=== PATIENT | female | born 2005 | race Caucasian/White ===

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

== ENCOUNTER 2024-01-05 20:02 | Emergency (ER) | payer MEDICAID, SELFPAY ==
--- NOTE | 2024-01-05 | ECG_ITS ---
Test Reason : tachycardia Blood Pressure : / mmHG Vent. Rate : 113 BPM Atrial Rate : 113 BPM P-R Int : 134 ms QRS Dur : 092 ms QT Int : 320 ms P-R-T Axes : 059 065 010 degrees QTc Int : 438 ms Sinus tachycardia Otherwise normal ECG When compared to the previous EKG of 25 jan 2023, lateral NSTT improved. Referred By: Generic ED Physician Electronically Signed By:STUART GARNETT
[2024-01-05 20:11] VITALS: BP 111/76; PULSE 130; O2SAT 97
[2024-01-05 20:13] VITALS: BP 135/93; PULSE 123; RESP 20; TEMP 37.3; O2SAT 96; BMI 35.1
[2024-01-05 20:50] LABS: IDNOW Serial# 58CA691E; Strep A Nucleic Acid Negative (Negative)
--- NOTE | 2024-01-05 21:05 | ED_ITS ---
HPI - URI/Sore Throat General Chief Complaint: Upper Respiratory Symptoms Stated Complaint: body aches, sore throat Time Seen by Provider: 01/05/24 21:02 Source: patient and old records reviewed Mode of arrival: EMS Limitations: no limitations History of Present Illness ED Provider: GIO BONILLA Narrative: 18 yo female with PMH of strep throat and asthma presents with c/o sore throat. She had leftover antibiotics not sure of the name so she took 2 doses. When she called 911 today for a ride to the hospital the dispatch told her to take INH as she told them she had some wheezing. She has no n/v but her throat is painful. MD elicited complaint: sore throat Pertinent past history: asthma Onset (ago): day(s) (1) Consistency: constant Severity: moderate Able to tolerate fluids by mouth: Yes Exacerbating factors: swallowing Relieving factors: nothing Context: other (strep 1 month ago) Associated symptoms: fever, chills and sore throat Treatments prior to arrival: other (told to use albuterol INH prior to arrival by dispatch) Related Data Previous Rx's ?Medication ?Instructions ?Recorded albuterol sulfate 90 mcg/actuation 2 inh inhalation Q4-6H PRN 09/14/21 breath activated powder inhaler shortness of breath or wheezing #1 ea albuterol sulfate 90 mcg/actuation 2 inh inhalation Q4-6H PRN 02/04/22 breath activated powder inhaler shortness of breath or wheezing #1 ea prednisone 20 mg tablet 20 mg PO DAILY 4 days #4 tabs 02/04/22 albuterol sulfate 90 mcg/actuation 2 inh inhalation Q4-6H PRN 08/10/22 breath activated powder inhaler shortness of breath or wheezing #1 ea prednisone 20 mg tablet 40 mg (2 x 20 mg) PO DAILY 5 days 08/10/22 #10 tabs albuterol sulfate 90 mcg/actuation 2 puff inhalation Q4-6H PRN 01/25/23 aerosol inhaler (ProAir HFA) shortness of breath or wheezing #8.5 grams prednisone 50 mg tablet 50 mg PO DAILY #4 tabs 01/25/23 cephalexin 500 mg capsule 500 mg PO BID 10 days #19 caps 01/05/24 Allergies Allergy/AdvReac Type Severity Reaction Status Date / Time Seasonal Allergies Allergy Mild Nasal Verified 01/05/24 20:19 congestion Review of Systems Review of Systems: Constitutional : positive Fever, positive Chills, positive fatigue, positive Malaise ENT/Mouth : positive sore throat, no runny nose Eyes: No Discharge Cardiovascular : No Chest Pain, No SOB Respiratory : No Cough, No Sputum Gastrointestinal : No Nausea, No Vomiting, No Diarrhea Genitourinary : No Dysuria, No Urinary Frequency Musculoskeletal : positive Myalgia Skin : No rash Neuro : No Headache all other systems reviewed and are negative [facility] Past Medical History Attestation statement: The following information was validated with the patient. Source: old records reviewed Medical History Asthma Social History Social History Alcohol intake: never Patient Tobacco Use Status: Never used Tobacco Advance Directives: No Advance Directives Information Provided: No Do you have a plan to hurt others: No Plan Physical Exam Vital Signs: Vital Signs: Last Vital Signs Temp 99.1 F 01/05/24 20:13 Pulse 123 H 01/05/24 20:13 Resp 20 01/05/24 20:13 BP 135/93 H 01/05/24 20:13 Pulse Ox 96 01/05/24 20:13 O2 Del Method Room Air 01/05/24 20:13 BMI result Body Mass Index 35.1 Appearance: Alert. Oriented X3. No acute distress. Eyes: Pupils equal, round and reactive to light. ENT: Pharynx moderate swelling both tonsils with some white patches noted on both tonsils uvula is midline normal voice not muffled no stridor or drooling Neck: Normal inspection. Neck supple. CVS: Normal heart rate and rhythm. Pulses normal. Respiratory: No respiratory distress. Breath sounds normal. Abdomen: Soft and non-tender. Skin: Skin warm and dry. Normal skin color. Extremities: No lower extremity edema. Neuro: Oriented X 3. No motor deficit. No sensory deficit. Medical Decision Making Medical Decision Making MDM Narrative: 18 yo female with PMH of strep throat and asthma presents with c/o sore throat and fevers. 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 Did take antibiotics x 2 doses unsure if this is causing any false negative with her testing. Will treat for presumed tonsillitis with cephalexin and give dose of dexamethasone. She has no signs of deeper space infection Differential Diagnosis Differential Diagnoses: The differential diagnosis associated with the presentation includes tonsillitis, viral syndrome, GAS pharyngitis Admission/Observation Consideration of admission/observation: Escalation of care including admission/observation considered not toxic, mild tachycardia likely related to INH use Lab Data MDM Lab Attestation statement: I reviewed the patient's lab results. Labs: Lab Results 01/05/24 Range/Units 20:37 Influenza Type A (PCR) NEGATIVE (Negative) Influenza Type B (PCR) NEGATIVE (Negative) RSV RNA Qual (PCR) NEGATIVE (Negative) SARS-CoV-2 RNA (RT-PCR) NEGATIVE (Negative) S. pyogenes GrpA ARLETTE Negative (Negative) Independent Interpretation I performed an independent interpretation of an: EKG Interpretation: Rate: 113 Rhythm: sinus tachycardia Hubbard: normal Normal P waves. Normal MAUREEN. Normal QRS complex. ST T wave : normal no EMA qTC: 438 prior studies: no acute ischemia The study has been interpreted contemporaneously by me. . External Record Review External record reviewed: Inpatient record Prescription Management I considered prescription management with: Antibiotic and Other Discharge Plan Discharge Clinical Impression: Acute tonsillitis Qualifiers: Pharyngitis/tonsillitis etiology: unspecified etiology Qualified Code(s): J03.90 - Acute tonsillitis, unspecified Patient Disposition: Home, Self-Care Instructions: Tonsillitis (ED) Additional Instructions: return for worsening symptoms, pain fevers unable to swallow or any other concerns rotate tylenol and motrin for fevers or pain given dose of steroids in the ED negative for flu covid rsv On a cephalosporin?antibiotic, softer bowel movements are to be expected. Call your provider if you move your bowels more than 4 times a day, your bowel movements are almost all liquid, or you get a rash.?? Prescriptions: New cephalexin 500 mg capsule 500 mg PO BID 10 Days Qty: 19 0RF No Action albuterol sulfate 90 mcg/actuation aerosol powdr breath activated 2 inh inhalation Q4-6H PRN (Reason: shortness of breath or wheezing) Qty: 1 0RF albuterol sulfate 90 mcg/actuation aerosol powdr breath activated 2 inh inhalation Q4-6H PRN (Reason: shortness of breath or wheezing) Qty: 1 0RF prednisone 20 mg tablet 20 mg PO DAILY 4 Days Qty: 4 0RF albuterol sulfate 90 mcg/actuation aerosol powdr breath activated 2 inh inhalation Q4-6H PRN (Reason: shortness of breath or wheezing) Qty: 1 0RF prednisone 20 mg tablet 40 mg PO DAILY 5 Days Qty: 10 0RF albuterol sulfate [ProAir HFA] 90 mcg/actuation HFA aerosol inhaler 2 puff inhalation Q4-6H PRN (Reason: shortness of breath or wheezing) Qty: 8.5 1RF prednisone 50 mg tablet 50 mg PO DAILY Qty: 4 0RF Stand Alone Forms: Work/School Release Print Language: Ukrainian
[2024-01-05 21:20] LABS: Influenza A PCR NEGATIVE (Negative); Influenza B PCR NEGATIVE (Negative); Resp Syncy Virus RNA Qual PCR NEGATIVE (Negative); SARS COV2 PCR INHOUSE NEGATIVE (Negative)
[2024-01-05] MEDS: dexAMETHasone 2 MG TABLET 10 MG PO (21:34)
[2024-01-05] MEDS: Acetaminophen 325 MG TABLET 975 MG PO (21:34)
[2024-01-05 22:02] VITALS: BP 135/93; PULSE 123; RESP 20; TEMP 37.3; O2SAT 96
[2024-01-05] MEDS: cephALEXin 500 MG CAPSULE PO (22:02)
== END 2024-01-05 22:02 | disposition home or self-care (01) ==
PROVIDERS: Emergency Provider Emergency Medicine
DX: J03.90 Acute tonsillitis, unspecified (principal); M79.10 Myalgia, unspecified site; R50.9 Fever, unspecified; R00.0 Tachycardia, unspecified; Z03.818 Encounter for observation for suspected exposure to other biological agents ruled out
CPT/HCPCS: 0241U; 87651; 93005; 99283; J8540

== ENCOUNTER → 2024-01-05 20:51 | Outpatient (BNV) | payer MEDICAID, SELFPAY | PROVIDERS: Emergency Provider Emergency Medicine; Visit Provider Internal Medicine | DX: R00.0 Tachycardia, unspecified (principal) | CPT/HCPCS: 93010 ==

== ENCOUNTER 2024-01-30 06:47 | Emergency (ER) | payer MEDICAID, SELFPAY ==
[2024-01-30 06:56] VITALS: BP 126/87; PULSE 100; O2SAT 97
[2024-01-30 07:02] VITALS: BP 152/90; PULSE 108; RESP 20; TEMP 36.6; O2SAT 95; BMI 35.8
--- NOTE | 2024-01-30 07:36 | ED.ASTHMA ---
HPI - Asthma General Chief Complaint: Dyspnea Stated Complaint: sob Time Seen by Provider: 01/30/24 07:00 Source: patient Mode of arrival: ambulatory Limitations: no limitations History of Present Illness ED Provider: GIO BONILLA Narrative: 19 yo female with PMH of asthma woke up with wheezing and tried to use nebulizer at home - no relief. EMS gave duoneb and patient feels much better. She denies recent fevers, travels, sick contacts, Has not been on prednisone in 1 month. Has not been intubated. Does not use steroid inhaler at home MD complaint: asthma attack , shortness of breath and wheezing Onset (ago): hour(s) (4am) Severity: moderate Context: none known Associated symptoms: none Asthma History: childhood onset Treatments Prior to Arrival: inhaled bronchodilator Related Data Previous Rx's ?Medication ?Instructions ?Recorded albuterol sulfate 90 mcg/actuation 2 inh inhalation Q4-6H PRN 09/14/21 breath activated powder inhaler shortness of breath or wheezing #1 ea albuterol sulfate 90 mcg/actuation 2 inh inhalation Q4-6H PRN 02/04/22 breath activated powder inhaler shortness of breath or wheezing #1 ea prednisone 20 mg tablet 20 mg PO DAILY 4 days #4 tabs 02/04/22 albuterol sulfate 90 mcg/actuation 2 inh inhalation Q4-6H PRN 08/10/22 breath activated powder inhaler shortness of breath or wheezing #1 ea prednisone 20 mg tablet 40 mg (2 x 20 mg) PO DAILY 5 days 08/10/22 #10 tabs albuterol sulfate 90 mcg/actuation 2 puff inhalation Q4-6H PRN 01/25/23 aerosol inhaler (ProAir HFA) shortness of breath or wheezing #8.5 grams prednisone 50 mg tablet 50 mg PO DAILY #4 tabs 01/25/23 cephalexin 500 mg capsule 500 mg PO BID 10 days #19 caps 01/05/24 albuterol sulfate 90 mcg/actuation 2 puff inhalation QID PRN 01/30/24 aerosol inhaler shortness of breath or wheezing #6.7 grams budesonide-formoterol HFA 80 1 inh inhalation BID #10.2 grams 01/30/24 mcg-4.5 mcg/actuation aerosol inhaler prednisone 20 mg tablet 40 mg (2 x 20 mg) PO DAILY 4 days 01/30/24 #8 tabs Allergies Allergy/AdvReac Type Severity Reaction Status Date / Time Seasonal Allergies Allergy Mild Nasal Verified 01/30/24 07:04 congestion Review of Systems Review of Systems: Constitutional : No Fever, No Chills ENT/Mouth : No Hoarseness, No sore throat, No Rhinorrhea Eyes: No Redness, No Discharge, No Vision Changes Cardiovascular : No Chest Pain, positive SOB, positive Dyspnea on Exertion, No Edema Respiratory : positive Cough, No Sputum, positive Wheezing, Gastrointestinal : No Nausea, No Vomiting, No Diarrhea, No abdominal Pain Genitourinary : No Dysuria, No Hematuria Musculoskeletal : No joint pain, No Myalgias Skin : No rash Neuro : No Weakness, No Numbness, No Headache Psych : No anxiety, depression All other systems reviewed and are negative [facility] Past Medical History Attestation statement: The following information was validated with the patient. Source: old records reviewed Medical History Asthma Social History Social History Alcohol intake: never Patient Tobacco Use Status: Never used Tobacco Advance Directives: No Physical Exam Vital Signs: Vital Signs: Last Vital Signs Temp 98 F 01/30/24 07:02 Pulse 108 H 01/30/24 07:02 Resp 20 01/30/24 07:02 BP 152/90 H 01/30/24 07:02 Pulse Ox 95 01/30/24 07:02 O2 Del Method Room Air 01/30/24 07:02 BMI result Body Mass Index 35.8 Appearance: Alert. Oriented X3. No acute distress. Eyes: Pupils equal, round and reactive to light. ENT: Pharynx normal. Neck: Normal inspection. Neck supple. CVS: Normal heart rate and rhythm. Pulses normal. Respiratory: No respiratory distress. Breath sounds faint wheeze left lower lobe otherwise clear Abdomen: Soft and non-tender. Skin: Skin warm and dry. Normal skin color. Extremities: No lower extremity edema. Neuro: Oriented X 3. No motor deficit. No sensory deficit. Medical Decision Making Medical Decision Making MDM Narrative: 19 yo female with hx of asthma no intubations here with wheezing on arrival that is drastically improved no hypoxia the patient is on rescue INH only using several times a week. She just had prednisone about a month ago. She needs steroid INH therapy to prevent recurrence and better manage her asthma. Will start on albuterol, steroid inhaler, short course prednisone. No concern for prednisone. Differential Diagnosis Differential Diagnoses: The differential diagnosis associated with the presentation includes asthma exacerbation Admission/Observation Consideration of admission/observation: Escalation of care including admission/observation considered really improved with EMS therapy not toxic needs steroid INH at home given recent recurrence in last month Independent Historian Clinical information obtained from an independent historian. History obtained from or confirmed by: EMS External Record Review External record reviewed: Inpatient record Prescription Management I considered prescription management with: Other (steroid INH albuterol, prednisone) Discharge Plan Discharge Clinical Impression: Asthma with exacerbation Qualifiers: Asthma severity: moderate Asthma persistence: persistent Qualified Code(s): J45.41 - Moderate persistent asthma with (acute) exacerbation Patient Disposition: Home, Self-Care Instructions: Asthma (ED) Additional Instructions: continue to use your inhaler today return for worsening symptoms or difficulty breathing next dose of prednisone is tomorrow Prescriptions: New prednisone 20 mg tablet 40 mg PO DAILY 4 Days Qty: 8 0RF albuterol sulfate 90 mcg/actuation HFA aerosol inhaler 2 puff inhalation QID PRN (Reason: shortness of breath or wheezing) Qty: 6.7 0RF budesonide-formoterol 80-4.5 mcg/actuation HFA aerosol inhaler 1 inh inhalation BID Qty: 10.2 0RF Rx Instructions: rinse mouth after immediately after use No Action albuterol sulfate 90 mcg/actuation aerosol powdr breath activated 2 inh inhalation Q4-6H PRN (Reason: shortness of breath or wheezing) Qty: 1 0RF albuterol sulfate 90 mcg/actuation aerosol powdr breath activated 2 inh inhalation Q4-6H PRN (Reason: shortness of breath or wheezing) Qty: 1 0RF prednisone 20 mg tablet 20 mg PO DAILY 4 Days Qty: 4 0RF albuterol sulfate 90 mcg/actuation aerosol powdr breath activated 2 inh inhalation Q4-6H PRN (Reason: shortness of breath or wheezing) Qty: 1 0RF prednisone 20 mg tablet 40 mg PO DAILY 5 Days Qty: 10 0RF albuterol sulfate [ProAir HFA] 90 mcg/actuation HFA aerosol inhaler 2 puff inhalation Q4-6H PRN (Reason: shortness of breath or wheezing) Qty: 8.5 1RF prednisone 50 mg tablet 50 mg PO DAILY Qty: 4 0RF cephalexin 500 mg capsule 500 mg PO BID 10 Days Qty: 19 0RF Stand Alone Forms: Work/School Release Print Language: Portuguese
[2024-01-30 07:46] VITALS: PULSE 96; RESP 16; O2SAT 98
[2024-01-30] MEDS: Albuterol Sulfate 2.5 MG, Albuterol/Iprat 2.5/0.5MG 3 ML 3 ML INHALE (07:46)
[2024-01-30 08:00] VITALS: BP 161/93; PULSE 110; RESP 16; TEMP 36.7; O2SAT 97
[2024-01-30] MEDS: predniSONE 20 MG TABLET 60 MG PO (08:02)
== END 2024-01-30 08:11 | disposition home or self-care (01) ==
PROVIDERS: Emergency Provider Emergency Medicine; PCP Registered Nurse
DX: J45.41 Moderate persistent asthma with (acute) exacerbation (principal); R06.02 Shortness of breath
CPT/HCPCS: 94640; 99284

== ENCOUNTER 2024-02-14 15:18 | Outpatient (REF) | payer MEDICAID, SELFPAY ==
[2024-02-14 17:10] LABS: Thyroid Stimulating Hormone 1.11 uIU/mL (0.32-4.0)
[2024-02-16 10:23] LABS: Follicle Stimulating Hormone 8.7 mIU/mL; Lutenizing Hormone 22.9 mIU/mL; Prolactin 20.5 ng/mL; Sex Hormone Binding Globulin 9 nmol/L (17-124)
[2024-02-16 10:27] LABS: DHEA Sulfate 161 mcg/dL (44-286)
[2024-02-20 21:09] LABS: Testosterone, Total 32 ng/dL (2-45)
[2024-02-20 23:59] LABS: Estradiol Ultra Sensitive 96 pg/mL
[2024-02-22 15:58] LABS: Aldosterone/Renin Ratio 4.9 Ratio (0.9-28.9); Plasma Renin Activity 2.46 ng/mL/h (0.25-5.82)
== END 2024-02-14 15:19 | disposition home or self-care (01) ==
LOC: HO.HHCL 15:18
PROVIDERS: Visit Provider Registered Nurse
DX: N92.6 Irregular menstruation, unspecified (principal); R03.0 Elevated blood-pressure reading, without diagnosis of hypertension
CPT/HCPCS: 36415; 82088; 82627; 82670; 83001; 83002; 83498; 84146; 84270; 84402; 84403; 84439; 84443

== ENCOUNTER 2024-02-25 14:05 | Outpatient (REF) | payer MEDICAID, SELFPAY | END 2024-02-25 14:06 | disposition home or self-care (01) | LOC: HO.HHCL 14:05 | PROVIDERS: Visit Provider Registered Nurse | DX: N92.6 Irregular menstruation, unspecified (principal) | CPT/HCPCS: 36415; 83498 ==

== ENCOUNTER 2024-10-07 12:00 | Outpatient (REF) | payer MEDICAID, SELFPAY ==
[2024-10-07 14:12] LABS: Creatinine Urine 270.85 mg/dL; Microalbum/Creatinine Ratio Ur 24.7 ug/mg cr (<30)
--- OUTSIDE RECORDS SUMMARY | 2024-10-07 14:27 | XMS_ITS | Encounter Summary ---
Author Organization [employer] Address [address] [facility] [address] [place] [address] Care Team Providers Care Relay Mechanic Name Role Phone Kayley Looney DO Primary Care Provider [phone] [facility] Primary Care Provider Reason for Visit * Reason Comments Med Refill Encounter Details Date Type Department Care Team (Late st Contact Info) Description 07/08/2023 Refill [facility] MED[facility]INE [address] [place], [place] [phone] Kayley Looney DO [address] [place], [place] [phone] Cough in adult; Moderate asthma with acute exacerbation, unspecified whether persistent Social History Tobacco Use Types Packs/Day Years Used Date Smoking Tobacco: Never Passive Smoke Exposure: Never Smokeless Tobacco: Never Alcohol Use Standard Drinks/Week Comments Never 0 (1 standard drink = 0.6 oz pur e alcohol) Comments Unknown Sex and Gender Information Value Date Recorded Sex Assigned at Female 04/16/2022 10:18 AM EDT Legal Sex Female 10:18 AM EDT Gender Identity Female 04/16/2022 10:18 AM EDT Sexual Orientation Straight 04/16/2022 10 :18 AM EDT documented as of this encounter Plan of Treatment Upcoming Encounters Date Type Department Care Team (Late st Contact Info) Description 12/07/2024 2:30 PM EDT Telemedicine [facility] MEDICINE [address] [place], [place] [phone] [facility] [address] [place] [address] documented as of this encounter Visit Diagnoses Diagnosis Cough in adult Moderate asthma with acute exacerbation, unspecified whether persistent documented in this encounter Care Teams Relay Mechanic Relationship Specialty Start Date End Date Kayley Looney DO [address] [place] [address] PCP - General Pediatrics 02/11/13 09/03/23 MaryvilleValerie FNP [address] [place] [address] PCP - General Family Medicine 09/04/23 Barbie Slade Sex Worker Or EscortDivider Operator 12/18/23 documented as of this encounter
--- OUTSIDE RECORDS SUMMARY | 2024-10-07 14:27 | XMS_ITS | Encounter Summary ---
Author Organization [employer] Address [address] [facility] [address] [place] [address] Care Team Providers Care Manager Of Supply Chain Name Role Phone Kayley Looney DO Primary Care Provider [phone] [facility] Primary Care Provider [phone] Reason for Visit * Reason Onset Date Comments Med Refill 04/26/2023 Encounter Details Date Type Department Care Team ([facility] st Contact Info) Description 04/26/2023 Refill [facility] MEDICINE [address] [place] [address] Kayley Looney DO [address] [place], [place] [phone] Cough in adult; Moderate asthma with acute [...] AM EDT documented as of this encounter Miscellaneous Notes * Telephone Encounter - Millicent Morales - 04/26/2023 10:21 AM EST Tc from pt requesting medication refill on albuterol 108 (90 Base) MCG/ACT inhaler to be sent to [facility] pharmacy documented in this encounter Plan of Treatment Upcoming Encounters Date Type Department Care Team (Late st Contact Info) Description 12/07/2024 2:30 PM EDT Telemedicine [facility] MEDICINE [address] [place] [address] Valerie Danielson FNP [address] [place] [address] documented as of this encounter Visit Diagnoses Diagnosis Cough in adult Moderate asthma with acute exacerbation, unspecified whether persistent documented in this encounter Care Teams Manager Of Supply Chain Relationship Specialty Start Date End Date Kayley Looney DO [address] [place] [phone] PCP - General Pediatrics 02/11/13 09/03/23 Valerie Danielson FNP [address] [place] [phone] PCP - General Family Medicine 09/04/23 Barbie Slade Fence Machine OperatorFinish Opener 12/18/23 documented as of this encounter
--- OUTSIDE RECORDS SUMMARY | 2024-10-07 14:27 | XMS_ITS | Encounter Summary ---
Author Organization [employer] Address [address] [facility] [address] [place] [address] Care Team Providers Care Addictions Counselor Name Role Phone DilciasusannayuriKayley Primary Care Provider [phone] [facility] Primary Care Provider [phone] Encounter Details Date Type Department Care Team (Late st Contact Info) Description 05/09/2022 Abstract [facility] [address] [place], [place] [phone] Dental, Provider, DDS Social History Tobacco Use Types Packs/Day Years Used Date Smoking Tobacco: Never Assessed Comments Unknown Sex and Gender Information Value Date Recorded Sex Assigned at Female 04/16/2022 10:18 AM EDT Legal Sex Female 10:18 AM EDT Gender Identity Female 04/16/2022 10:18 AM EDT Sexual Orientation Straight 04/16/2022 10 :18 AM EDT documented as of this encounter Plan of Treatment Upcoming Encounters Date Type Department Care Team (Late Contact Info) Description 12/07/2024 2:30 PM EDT Telemedicine [facility] [address] [place], [place] [phone] [facility] [address] [place] [address] documented as of this encounter Procedures Procedure Name Priority Date/Time Associated Diagnosis Comments 14 O SEALANT - PER TOOTH Routine 05/09/2022 12:00 AM EST 19 O SEALANT - PER TOOTH Routine 05/09/2022 12:00 AM EST 3 O SEALANT - PER TOOTH Routine 05/09/2022 12:00 AM EST 30 O SEALANT - PER TOOTH Routine 05/09/2022 12:00 AM EST 30 B COMPOSITE FILLING Routine 05/09/2022 12:00 AM EST 18 MOB COMPOSITE FILLING Routine 05/09/2022 12:00 AM EST 19 MODB COMPOSITE FILLING Routine 05/09/2022 12:00 AM EST 21 DO COMPOSITE FILLING Routine 05/09/2022 12:00 AM EST 20 MOD COMPOSITE FILLING Routine 05/09/2022 12:00 AM EST 15 LO COMPOSITE FILLING Routine 05/09/2022 12:00 AM EST 13 DO COMPOSITE FILLING Routine 05/09/2022 12:00 AM EST 14 LO COMPOSITE FILLING Routine 05/09/2022 12:00 AM EST 4 O COMPOSITE FILLING Routine 05/09/2022 12:00 AM EST 2 O COMPOSITE FILLING Routine 05/09/2022 12:00 AM EST documented in this encounter Visit Diagnoses Not on filedocumented in this encounter Care Teams Addictions Counselor Relationship Specialty Start Date End Date Kayley Looney DO [address] [place] [address] PCP - General Pediatrics 02/11/13 09/03/23 [facility] [address] [place] [address] PCP - General Family Medicine 09/04/23 Barbie Slade Dry Kiln BurnerPlant Assigner 12/18/23 documented as of this encounter
--- OUTSIDE RECORDS SUMMARY | 2024-10-07 14:27 | XMS_ITS | Encounter Summary ---
Author Organization [employer] Address [address] [place] [address] Care Team Providers Care Human Resources Leader Name Role Phone Valerie Danielson HEARING CONSULTANT Primary Care Provider [phone] Encounter Details Date Type Department Care Team (Latest Contact Info) Description 10/07/2024 Travel Social History Tobacco Use Types Packs/Day Years Used Date Smoking Tobacco: Never Passive Smoke Exposure: Never Smokeless Tobacco: Never Alcohol Use Standard Drinks/Week Comments Never 0 (1 standard drink = 0.6 oz pur e alcohol) Depression Answer Date Recorded Patient Health Questionnaire-9 Score 0 10/07/2024 Patient Health Questionnaire-9 Score 0 10/07/2024 Last PHQ-9: Questionnaire Data Not on file 0 10/07/2024 Housing Stability Answer Date Recorded What is your housing situation today? I have yvon call 09/11/[address] you li ve. Do you have problems with any of the following? None of the above 09/11/2023 Food Insecurity Answer Date Recorded Within the past 12 months, y ou worried that your food would run out before you got money to buy more: Never True 09/11/2023 Within the past 12 months,th e food you bought just didn't last and you didn't have enough money to get more: Never True Transportation Answer Date Recorded In the past 12 months, has l ack of transportation kept you from medical appts, meetings, work or from getting things needed for daily living? No 09/11/2023 Utilities Answer Date Recorded In the past 12 months, has t he electric, gas, oil or water company threatened to shut off services in your home? No 09/11/2023 Depression Answer Date Recorded Patient Health Questionnaire-2 Score 0 10/07/2024 Internet Access Answer Date Recorded Internet Access Q1 Yes 04/24/2024 Internet Access Q2 Not on file 04/24/2024 Comments Unknown Sex and Gender Information Value Date Recorded Sex Assigned at Female 04/16/2022 10:18 AM EDT Legal Sex Female 10:18 AM EDT Gender Identity Female 04/16/2022 10:18 AM EDT Sexual Orientation Straight 04/16/2022 10 :18 AM EDT documented as of this encounter Plan of Treatment Upcoming Encounters Date Type Department Care Team (Late st Contact Info) Description 12/07/2024 2:30 PM EDT Telemedicine [facility] MED[facility]INE [address] [place] [address] Valerie Danielson [facility] [address] [place] [address] documented as of this encounter Visit Diagnoses Not on filedocumented in this encounter Additional Health Concerns Assessment Noted Time PHQ-9 Depression Total Score: 0 10/08/19 25 11:19 AM EDT documented as of this encounter Care Teams Human Resources Leader Relationship Specialty Start Date End Date Valerie Danielson FNP [address] [place] [address] PCP - General Family Medicine 09/04/23 Barbie Slade Pattern DesignerSenior Manager 12/18/23 documented as of this encounter
--- OUTSIDE RECORDS SUMMARY | 2024-10-07 14:27 | XMS_ITS | Encounter Summary ---
Author Organization [employer] Address [address] [facility] 7t [place] [address] Care Team Providers Care Stock Broker Name Role Phone DilciaKayley alaniz DO Primary Care Provider [phone] [facility] Primary Care Provider [phone] Encounter Details Date Type Department Care Team (Late st Contact Info) Description 05/17/2022 Orders Only [facility] [address], [place] [phone] Adelia Jalloh MD [address] [place], [place] [phone] Mild intermittent asthma, unspecified whether complicated (Primary Dx) Social History Tobacco Use Types Packs/Day Years Used Date Smoking Tobacco: Never Assessed Comments Unknown Sex and Gender Information Value Date Recorded Sex Assigned at Female 04/16/2022 10:18 AM EDT Legal Sex Female 10:18 AM EDT Gender Identity Female 04/16/2022 10:18 AM EDT Sexual Orientation Straight 04/16/2022 10 :18 AM EDT COVID-19 Exposure Response Date Recorded In the last 10 days, have yo u been in contact with someone who was confirmed or suspected to have Coronavirus/COVID-19? No / Unsure 05/17/2022 9:47 AM EST documented as of this encounter Plan of Treatment Upcoming Encounters Date Type Department Care Team (Late st Contact Info) Description 12/07/2024 2:30 PM EDT Telemedicine [facility] [address] [place] [address] [facility] [address] [place] [address] documented as of this encounter Procedures Procedure Name Priority Date/Time Associated Diagnosis Comments INFLUENZA A B2 ID NOW (LUCAS) Routine 08/10/2022 8:56 PM EST Mild intermittent asthma, unspecified whether complicated COVID-19 ID NOW (LUCAS) Routine 08/10/2022 8:56 PM EST Mild intermittent asthma, unspecified whether complicated CBC WITH AUTO DIFFERENTIAL Routine 08/10/2022 8:56 PM EST Mild intermittent asthma, unspecified whether complicated MAGNESIUM Routine 08/10/2022 8:56 PM EST Mild intermittent asthma, unspecified whether complicated COMPREHENSIVE METABOLIC PANEL Routine 08/10/2022 8:56 PM EST Mild intermittent asthma, unspecified whether complicated documented in this encounter Results * Influenza A B2 ID NOW (Lucas) (08/10/2022 8:56 PM EST) IDNOW SERIAL# [id number] [facility] Influenza A Negative Negative [facility] Influenza B2 Negative Negative [facility] Influenza A B2 Note See Note [facility] Comment:The Lucas ID NOW In fluenza A B2 test is used for thequalitative detection of influenza A and B from patientswith signs and symptoms of respiratory infection.Negative results do not preclude influenza virus infectionand should not be used as the sole basis for diagnosis,treatment or other patient management decisions.There is a risk of false negative results due to thepresence of variants in the viral targets of the assay, lowlevels of virus in the specimen and co- infection withRespiratory Syncytial Virus. 08/10/2022 8:56 PM EST 08/10/2022 9:04 PM EST us [facility] Exter nal Provider LAB MICROBIOLOGY - GENERAL ORDERABLES Final Result [facility] [address] [place] [phone] * COVID-19 ID NOW (LUCAS) (08/10/2022 8:56 PM EST) IDNOW SERIAL# [id number] [facility] COVID-19 TEST Negative Negative [facility] COVID-19 NOTE See Note [facility] Comment: Results are for the identification of SARS-CoV2 RNA. TheSARS-CoV2 RNA is generally detectable in respiratory samplesduring the acute phase of infection. Positive results areindicative of the presence of SARS-CoV-2 RNA; clinicalcorrelation with patient history and other diagnosticinformation is necessary to determine patient infectionstatus. Positive results do not rule out bacterial infectionor co- infection with other viruses.Testing facilities within the [facility] and [facility] are required to report all positive results tothe appropriate public health authorities.Negative results should be treated as presumptive and, ifinconsistent with clinical signs and symptoms or necessaryfor patient management, should be tested with differentauthorized or cleared molecular tests. Negative results donot preclude SARS-CoV2 RNA infection and should not be usedas the sole basis for patient management decisions. Negativeresults should be considered in the context of a patient'srecent exposures, history and the presence of clinical signsand symptoms consistent with COVID-19.This test has been authorized by the FDA under an EmergencyUse Authorization (EUA) for use by authorized laboratories.Testing performed on the Lucas ID NOW utilizing NAAT. 08/10/2022 8:56 PM EST 08/10/2022 9:04 PM EST us [facility] Exter nal Provider LAB MOLECULAR DIAGNOSTICS ORDERABLES Final Result [facility] [address] [place] [phone] * Magnesium (08/10/2022 8:56 PM EST) Magnesium 1.7 1.6 - 2.6 mg/dL [facility] 08/10/2022 8:56 PM EST 08/10/2022 9:04 PM EST us [facility] External Provider LAB BLO OD ORDERABLES Final Result [facility] [address] [place] [phone] * (ABNORMAL) Comprehensive Metabolic Panel (08/10/2022 8:56 PM EST) Sodium 139 135 - 145 mmol/L [facility] Potassium 3.4 3.3 - 5.1 mmol/L [facility] Chloride 109(H) 96 - 108 mmol/L [facility] Carbon Dioxide 21(L) 22 - 29 mmol/L [facility] Anion Gap 12 12 - 20 [facility] Urea Nitrogen (BUN) 12 9 - 16 mg/dL [facility] Creatinine, Serum 0.77 0.5 - 1.4 mg/dL [facility] Creatinine Clr Calc Pharmacy TNP [facility] Comment:Cannot be calculated ; patient is less than 19 years old. Estimated Glomerular Filt Rate >60 [facility] Comment:NOTE: For -Am erican individuals, multiply the result by 1.210.Chronic Kidney Disease: Estimated GFR < 60 mL/min/1.85i7Ugaqcp Kidney Disease: Estimated GFR < 15 mL/min/1.73m2 Glucose 103 60 - 115 mg/dL [facility] Calcium 9.3 8.4 - 10.2 mg/dL [facility] Bilirubin, Total 0.4 0.0 - 1.0 mg/dL [facility] Aspartate Amino Transferase 17 5 - 31 U/L [facility] Alanine Aminotransferase 17 0 - 31 U/L [facility] Total Protein 7.4 6.5 - 8.0 g/dL [facility] Albumin Level 4.3 3.5 - 5.0 g/dL [facility] Alkaline Phosphatase 78 39 - 117 U/L [facility] 08/10/2022 8:56 PM EST 08/10/2022 9:04 PM EST us [facility] External Provider LAB BLO OD ORDERABLES Final Result [facility] [address] [place], [place] [phone] * (ABNORMAL) CBC auto differential (08/10/2022 8:56 PM EST) White Blood Count 11.1(H) 4.8 - 10.8 X10*3/uL [facility] Red Blood Count 4.99 4.20 - 5.50 X10*6/uL [facility] Hemoglobin 12.9 12.0 - 16.0 g/dl [facility] Hematocrit 38.9 37.0 - 47.0 % [facility] Mean Corpuscular Volume 78.0(L) 80.0 - 98.0 fL [facility] Mean Corpuscular Hemoglobin 25.9(L) 27.0 - 33.0 pg [facility] Mean Corpuscular HGB Conc 33.2 31.0 - 35.0 g/dl [facility] Red Cell Distribution Width 13.4 11.0 - 16.0 % [facility] Platelet Count 351 160 - 400 X10*3/uL [facility] Mean Platelet Volume 9.1(L) 9.4 - 12.3 fL [facility] Neutrophils Percent Auto 61.2 45 - 73 % [facility] Imm Gran Pct Auto 0.3 0.0 - 0.4 % [facility] Lymphocytes Percent Auto 24.3 20 - 40 % [facility] Monocytes Percent Auto 6.4 2 - 11 % [facility] Eosinophils Percent Auto 6.6(H) 0 - 4 % [facility] Basophils Percent Auto 1.2 0 - 2 % [facility] NRBC Pct Auto 0.0 0.0 - 0.2 /100WBC [facility] Neutrophils Absolute Auto 6.8 2.0 - 8.3 x10*3/uL [facility] Imm Gran Abs Auto 0.03 0.00 - 0.03 X10*3/uL [facility] Lymphocytes Absolute Auto 2.7 1.2 - 4.9 X10*3/uL [facility] Monocytes Absolute Auto 0.7 0.1 - 1.2 X10*3/uL [facility] Eosinophils Absolute Auto 0.7(H) 0.0 - 0.4 X10*3/uL [facility] Basophils Absolute Auto 0.1 0.0 - 0.2 X10*3/uL [facility] NRBC Abs Auto 0.000 0.0 - 0.012 X10*3/uL [facility] 08/10/2022 8:56 PM EST 08/10/2022 9:04 PM EST [facility] External Provider LAB BLO OD ORDERABLES Final Result Performing Organization Address City/State/[facility] Co de Phone Number [facility] [address] [place] [phone] documented in this encounter Visit Diagnoses Diagnosis Mild intermittent asthma, unspecified whether complicated- Primary documented in this encounter Care Teams Stock Broker Relationship Specialty Start Date End Date Kayley Looney DO [address] [place] [phone] PCP - General Pediatrics 02/11/13 09/03/23 [facility] FNP [address] [place] [address] PCP - General Family Medicine 09/04/23 Barbie Slade Cell InstallerStained Glass Painter 12/18/23 documented as of this encounter
--- OUTSIDE RECORDS SUMMARY | 2024-10-07 14:27 | XMS_ITS | Encounter Summary ---
Author Organization [employer] Address [address] [facility] [address] [place] [address] Care Team Providers Care Logging Crew Supervisor Name Role Phone Kayley Looney DO Primary Care Provider [phone] [facility] Primary Care Provider [phone] Reason for Visit * Reason Comments Med Refill Encounter Details Date Type Department Care Team (Late st Contact Info) Description 08/16/2023 Refill [facility] [address] [place], [place] [phone] Kayley Looney DO [address] [place], [place] [phone] Cough in adult; Moderate asthma with acute [...] Info) Description 12/07/2024 2:30 PM EDT Telemedicine [facility] [address] [place], [place] [phone] [facility] [address] [place] [address] documented as of this encounter Visit Diagnoses Diagnosis Cough in adult Moderate asthma with acute exacerbation, unspecified whether persistent documented in this encounter Care Teams Logging Crew Supervisor Relationship Specialty Start Date End Date Kayley Looney DO [address] [place] [address] PCP - General Pediatrics 02/11/13 09/03/23 [facility] FNP [address] [place] [address] PCP - General Family Medicine 09/04/23 Barbie Sl[place] Tester Armature Or FieldsTearoom Hostess 12/18/23 documented as of this encounter
--- OUTSIDE RECORDS SUMMARY | 2024-10-07 14:27 | XMS_ITS | Encounter Summary ---
Author Organization [employer] Address [address] [facility] [address] [place] [address] Care Team Providers Care Transit Coach Operator Name Role Phone DilciaKayley alaniz Primary Care Provider [phone] [facility] Primary Care Provider [phone] Reason for Visit * Reason Comments Med Refill Encounter Details Date Type Department Care Team (Late st Contact Info) Description 05/20/2023 Refill [facility] [address] [place], [place] [phone] Adelia Jalloh MD [address] [place], [place] [phone] Cough in adult; Moderate asthma with acute [...] Info) Description 12/07/2024 2:30 PM EDT Telemedicine [facility] [address] [place], [place] [phone] [employer] [address] [place] [address] documented as of this encounter Visit Diagnoses Diagnosis Cough in adult Moderate asthma with acute exacerbation, unspecified whether persistent documented in this encounter Care Teams Transit Coach Operator Relationship Specialty Start Date End Date Kayley Looney DO [address] [place] [address] PCP - General Pediatrics 02/11/13 09/03/23 [facility] FNP [address] [place] [address] PCP - General Family Medicine 09/04/23 Barbie Sl[place] Obstetrics And Gynecology ProfessorTelecommunications Administrator 12/18/23 documented as of this encounter
--- OUTSIDE RECORDS SUMMARY | 2024-10-07 14:27 | XMS_ITS | Clinical Summary ---
Author Organization [employer] Address [address] [place] [address] Care Team Providers Care Loan Underwriter Name Role Phone Valerie Danielson RETAIL CLIENT MANAGER Primary Care Provider [phone] Allergies No known active allergies Medications fluticasone (Flovent) 110 MCG/ACT inhaler 2 inh via spacer 2 times per day every day 08/24/19 22 Active Sodium Fluoride 1.1 % gel Noti with a pea size amount every night. Floss then spit out excess. Do not rinse 04/25/20 21 Active chlorhexidine (Peridex) 0.12 % solution RINSE FOR 30 SECONDS WITH A HALF OUNCE (15ml) TWICE DAILY, SPIT OUT -- DO NOT SWALLOW., USE AFTER MEALS 03/14/20 22 Active hydrOXYzine pamoate (Vistaril) 25 MG capsule TAKE 1 CAPSULE BY MOUTH TWICE DAILY NEEDED 11/15/19 23 Active guanFACINE (Intuniv) 4 mg 24 hr tablet Take 4 mg by mouth in the morning. 11/15/19 23 Active levonorgestrel- ethinyl estradiol (Aviane, Alesse, Lessina) 0.1-20 MG-MCG tabletIndicatio ns:Irregular menses 1 tab by oral route daily 28 tablet 12 11/20/19 23 Active Sodium Fluoride 1.1 % cream Noti with a pea size amount of toothpaste morning and bedtime. Floss between teeth. Do not rinse. Spit out excess. 56 g 10 11/29/19 23 Active ketotifen (Zaditor) 0.025 % ophthalmic solution 1 drp by ophthalmic (eye) route 2 times per day ;administer at least 8 hours apart prn allergy symptoms 5 mL 5 03/27/20 23 Active loratadine (Claritin) 10 MG tablet 1 tablet by oral route daily prn allergy symptoms 90 tablet 03/27/20 23 Active Blood Pressure kitIndications: Elevated blood pressure reading Use as directed to check blood pressure once daily 1 kit 09/11/19 24 Active FLUoxetine (PROzac) 20 MG capsule TAKE 1 CAPSULE BY MOUTH EVERY MORNING WITH 10 MG CAPSULE 10/21/19 24 Active melatonin 3 MG tablet TAKE 1 TO 2 TABLETS BY MOUTH 1 HOUR BEFORE BEDTIME 10/21/19 24 Active fluticasone (Flonase) 50 MCG/ACT nasal sprayIndication s:Otitis media with effusion, left Administer 2 sprays into each nostril Once per day. Shake gently. Before first use, prime pump. After use, clean tip and replace cap. 16 g 2 11/13/19 24 2024 Active cholecalciferol (Vitamin D3) 25 MCG (1000 UT) tabletIndicatio ns:Vitamin D deficiency Take 1 tablet (25 mcg) by mouth Once per day. TAKE 1 TABLET BY MOUTH DAILY IN THE MORNING 90 tablet 3 01/06/20 24 Active montelukast (Singulair) 10 MG tablet TAKE 1 TABLET BY MOUTH EVERY EVENING 90 tablet 3 01/24/20 24 Active triamcinolone (Kenalog) 0.1 % ointmentIndicat ions:Flexural eczema Mix with 1 lb jar of Cerave healing ointment and apply topically to body twice a day 80 g 2 05/11/20 24 Active albuterol (Ventolin HFA) 108 (90 Base) MCG/ACT inhalerIndicati ons:Moderate asthma with acute exacerbation, unspecified whether persistent INHALE 2 PUFFS BY MOUTH EVERY 4 TO 6 HOURS NEEDED FOR COUGH, WHEEZING, OR SHORTNESS OF BREATH ADMINISTER WITH SPACER 18 g 3 07/15/19 25 Active albuterol (2.5 MG/3ML) 0.083% nebulizer solutionIndicat ions:Moderate asthma with acute exacerbation, unspecified whether persistent,Coug h in adult INHALE 1 AMPULE USING A NEBULIZER EVERY 4 TO 6 HOURS NEEDED FOR COUGH, WHEEZING, OR SHORTNESS OF BREATH 90 mL 3 07/15/19 25 Active Neomycin-Polymy lauren-HC 1 % solutionIndicat ions:Acute otitis externa of right ear, unspecified type Administer 4 drops into affected ear(s) 4 times daily. 10 mL 03/18/20 25 Active metFORMIN XR (Glucophage-XR) 500 MG 24 hr tabletIndicatio ns:PCOS (polycystic ovarian syndrome) Take 1 tablet by oral route daily. If tolerating well OK to increase to twice daily 30 tablet 10/08/19 25 Active NIFEdipine XL (Procardia XL) 60 MG 24 hr tabletIndicatio ns:Primary hypertension Take 1 tablet (60 mg) by mouth Once per day. Do not crush, chew, or split. 30 tablet 10/08/19 25 2025 Active midazolam (Versed) 2 MG/ML syrup To be administered by dental provider on day of procedure 03/13/202024 Discontinued methylPREDNISol one (Medrol Dospak) 4 MG tablets Take by mouth. 03/14/202024 Discontinued amoxicillin (Amoxil) 500 MG capsuleIndicati ons:Strep pharyngitis Take 1 tab po bid for 10 days 20 capsule 11/21/192024 Discontinued NIFEdipine XL (Procardia XL) 30 MG 24 hr tabletIndicatio ns:Primary hypertension Take 1 tablet (30 mg) by mouth Once per day. Do not crush, chew, or split. 30 tablet 09/02/192024 Discontinued Active Problems Problem Noted Date Diagnosed Date Acute otitis externa of right ear 09/01/2024 Primary hypertension 09/01/2024 Assessment & Plan (09/01/2024 5:11 PM EDT): Today patient's blood pressure is elevated on further questioning she tells me she has been monitoring her blood pressure at home and is always high more than 140/90, I decided to start her on blood pressure medication nifedipine (in light patient is in childbearing age) patient is to be follow in 2 weeks by nurse for BP monitoring plan is if blood pressure is above 140/90 to increase nifedipine to 60 mg daily and follow-up again with nurse for BP check in 2 weeks but if blood pressure is at goal below 140/90 to continue with same medication I will also set up appointment with PCP in light of recent hypertension diagnosis and patient's young age Strep pharyngitis 11/20/2023 Assessment & Plan (11/20/2023 10:19 AM EDT): -rapid strep positive -amoxicillin 500mg bid for 10 days -droplet precautions discussed -supportive care discussed -ER precautions given -work note given for 3 days Attention deficit hyperactivity disorder 022 Dyslipidemia 05/09/2022 Vitamin D deficiency 05/09/2022 Moderate persistent asthma 08/07/2019 Posttraumatic stress disorder 04/10/2017 Myopia 04/12/2014 Anxiety 02/05/2013 Overview (10/08/2023): therapy through [facility]; loan underwriter + panic attacks-->hydroxyzine PRN, fluoxetine, guainfaceine for ?ADHD Eczema 03/10/2012 Learning difficulty 03/10/2012 Body mass index, pediatric, greater than or equal to 95th percentile for age 0903/10/2012 Resolved Problems Problem Noted Date Diagnosed Date Resolved Date Depressive disorder 02/08/2016 10/08/19 24 Encounters Date Type Department Care Team Description 10/07/2024 11:15 AM EDT Office Visit [facility] [address] [place] [phone] Valerie Danielson FNP Essential hypertension (Primary Dx); PCOS (polycystic ovarian syndrome); Primary hypertension 10/07/2024 Travel 09/15/2024 2:30 PM EDT Clinical Support [address] [address] Aleshia Chau RN Primary hypertension [I10] 09/15/2024 Travel 09/01/2024 3:00 PM EDT Office Visit [facility] [address] [place] [address] Tarah Elizondo MD Acute otitis externa of right ear, unspecified type (Primary Dx); Primary hypertension 08/27/2024 3:00 PM EDT Office Visit [facility] [address] [place], [place] [phone] Beatriz Mckeon DMD 08/20/2024 Telephone [facility] [address] [place] [address] Valerie Danielson FNP nurse triage 07/14/2024 Refill [facility] [address] [place] [address] Alana Castillo MD Moderate asthma with acute exacerbation, unspecified whether persistent; Cough in adult 07/14/2024 Refill [facility] [address] [place] [address] Kayley Looney, Cough in adult; Moderate asthma with acute exacerbation, unspecified whether persistent from Last 3 Months Immunizations Name Administration Dates Next Due DTaP 09/15/2008,07/10/2005,2004 DTaP / Hep B / IPV 2004,2004, 004 HPV 9-Valent 05/07/2016,02/04/2015 Hep A, ped/adol, 2 dose 05/07/2016,02/04/2015 Hep B, Adolescent or Pediatric 2004,2003 Hib ([facility]) 07/10/2005, 5,2004,05/15 IPV 09/15/2008,2004 Influenza injectable quadriv alent preservative free 05/29/2021,08/07/2019,05/29/2018,05/28,05/07/2016,04/02/2014 Influenza, IIV3, injectable 09/15/2008, 7,07/10/2005 MMR 09/15/2008,01/24/2005 Meningococcal MCV4P ACYW-135 02/17/2021,02/05/20 15 Pfizer Covid-19 Vaccine 12+ 09/11/2023 Pneumococcal Conjugate PCV 7 07/10/2005, 2004,2004,05/15 Tdap 02/04/2015 Varicella 09/15/2008,01/24/2005 Family History Medical History Relation Name Comments Stroke Maternal Grandfather Diabetes Maternal Grandmother Diabetes Mother No Known Problems Paternal Grandmother Relation Name Status Comments Maternal Grandfather Maternal Grandmother Mother Paternal Grandmother Social History Tobacco Use Types Packs/Day Years Used Date Smoking Tobacco: Never Passive Smoke Exposure: Never Smokeless Tobacco: Never Tobacco Cessation:Counseling Given: Not Answered Alcohol Use Standard Drinks/Week Comments Never 0 [...] Orientation Straight 04/16/2022 10 :18 AM EDT Last Filed Vital Signs Vital Sign Reading Time Taken Comments Blood Pressure 143/94 10/07/2024 11:09 AM EDT Pulse 97 10/07/2024 11:09 AM EDT Temperature 36.1 ??C (96.9 ??F) 10/07/2024 11:09 AM E DT Respiratory Rate 20 10/07/2024 11:09 AM EDT Oxygen Saturation 98% 09/15/2024 2:58 PM EDT Inhaled Oxygen Concentration - - Weight 100 kg (220 lb 6.4 oz) 10/07/2024 11:09 A M EDT Height 167.6 cm (5' 6 ) 10/07/2024 11:09 AM EDT Body Mass Index 35.57 10/07/2024 11:09 AM EDT Plan of Treatment Upcoming Encounters Date Type Department Care Team (Late st Contact Info) Description 12/07/2024 2:30 PM EDT Telemedicine [facility] [address] [place] [address] [place], Valerie, RETAIL CLIENT MANAGER [address] [place], [place] [phone] Health Maintenance Due Date Last Done Comments Chlamydia and Gonorrhea Screening 2004 Dental X-Ray: Full Mouth 2004 HIV Screening 2004 Alcohol/Substance Use Screening 2016 Family Planning (PISQ) 01/26/2019 Hepatitis C Screening 01/26/2022 Pneumococcal Vaccine: Pediatrics (0 to 5 Years) and At-Risk Patients (6 to 49) Years) (1 of 2 - PCV) 01/26/2023 07/10/2005, 2004, 2004, Additional history exists Dental Oral Exam 05/31/2023 11/28/2022 Dental Prophylaxis 05/31/2023 11/28/2022 Dental X-Ray: Bitewings 11/30/2023 11/28/2022 COVID-19 Vaccine ( season) 2024 09/11/2023, 11/13/2020, 10/22/2020 Influenza Vaccine (#1) 2024 , 08/07/2019, 05/29/2018, Additional history exists SDOH Screening 09/10/2024 09/11/2023 DTaP/Tdap/Td Vaccines (7 - Td or Tdap) 02/04/2025 02/04/2015, 09/15/2008, 07/10/2005, Additional history exists Depression Screening 10/07/2025 10/07/2024, 10/08/19 25 Tobacco Screening 10/07/2025 10/07/2024 Lipid Panel 09/10/2028 09/11/2023, 06/0 01/2023, 02/27/2021 Zoster Vaccines (1 of 2) 01/26/2054 RSV Patients and Patients Aged 60 years or older (1 - 1-dose 75+ series) 01/26/2079 Hepatitis B Vaccines Completed 2004, 2004, 2004, Additional history exists HIB Vaccines Completed 07/10/2005, 10/16, 2004, Additional history exists IPV Vaccines Completed 09/15/2008, 10/16, 2004, Additional history exists HPV Vaccines Completed 05/07/2016, 02/04/2015 Hepatitis A Vaccines Completed 05/07/2016, 02/05/20 15 Meningococcal Vaccine Completed 02/17/2021, 015 RSV under 20 months Aged Out No longe r eligible based on patient's age to complete this topic Rotavirus Vaccines Aged Out No longer eligible based on patient's age to complete this topic Procedures Procedure Name Priority Date/Time Associated Diagnosis Comments ALBUMIN, RANDOM URINE W/CREATININE Routine 10/07/2024 12:02 PM EDT Essential hypertension NO CHARGE, PERIODIC ORTHODONTIC TREATMENT VISITS Routine 08/27/2024 3:00 PM EDT LIPID PANEL, STANDARD Routine 09/11/2023 3:53 PM EDT Elevated blood pressure reading PROPHYLAXIS - ADULT Routine 11/28/2022 1 1:00 AM EDT BITEWINGS - 4 RADIOGRAPHIC IMAGES Routine 11/28/2022 11:00 AM EDT PERIODIC ORAL EVALUATION - ESTABLISHED PATIENT Routine 11/28/2022 11:00 AM EDT from Last 3 Months or Most Recently Relevant to Health Maintenance Results * Albumin, Random Urine W/Creatinine (10/07/2024 12:02 PM EDT) Creatinine, Urine 270.85 mg/dL [facility] Microalbumin Urine 67.0 mg/L [facility] Microalbum Creatinine Ratio Ur 24.7 <30 ug/mg cr [facility] Comment:Albumin/Creatinine R atio Reference Ranges: Normal: < 30 ug/mg creatinine Microalbuminuria: 30 - 300 ug/mg creatinineClinical Albuminuria: > 300 ug/mg creatinine Urine 10/07/2024 12:0 2 PM EDT 10/07/2024 1:35 PM EDT [facility] LAB URINE ORDERABLES Final Re sult Performing Organization Address [facility]/ZIP Co de Phone Number [facility] [address] [place] [address] [phone] * (ABNORMAL) Lipid Panel, Standard (09/11/2023 3:53 PM EDT) Triglycerides 247(H) <150 mg/dL [facility] Comment:Desirable Triglyceri de: less than 90 mg/dLBorderline High Triglyceride: 90-129 mg/dLHigh Triglyceride: greater than 130 mg/dL Cholesterol 154 <200 mg/dL [facility] Comment:Desirable Cholestero l: less than 170 mg/dLBorderline High Cholesterol: 170-199 mg/dLHigh Cholesterol: greater than 200 mg/dL LDL Cholesterol Calculated 71 <100 mg/dL [facility] Comment:Desirable LDL: less than 110 mg/dLBorderline LDL: 110-129 mg/dLHigh LDL: greater than or equal to 130 mg/dL HDL Cholesterol 34(L) >40 mg/dL [facility] Comment:Desirable HDL: great er than 45 mg/dLBorderline HDL: 40-45 mg/dLLow HDL: less than 40 mg/dL Note: This HDL assay may give artificially low results in patients with liver disease. Blood Venous blood specimen / Unknown 09/11/2023 3:53 PM EDT 09/11/2023 5:18 PM EDT [facility] LAB BLOOD ORDERABLES Final Re sult Performing Organization Address [facility]/ZIP Co de Phone Number [facility] [address] [place] [address] [phone] from Last 3 Months or Most Recently Relevant to Health Maintenance [facility] STAND CHILD Care Teams Loan Underwriter Relationship Specialty Start Date End Date Valerie Danielson FNP [address] [place] [phone] PCP - General Family Medicine 09/04/23 Barbie Slade Battery TesterPrecipitation Equipment Tender 12/18/23
--- OUTSIDE RECORDS SUMMARY | 2024-10-07 14:27 | XMS_ITS | Encounter Summary ---
Author Organization [employer] Address [address] [facility] [address] [facility] [address] [place] [address] Care Team Providers Care Marine Consultant Name Role Phone Valerie Danielson RACING SECRETARY AND HANDICAPPER Primary Care Provider [phone] Reason for Visit * Reason Comments Med Refill Encounter Details Date Type Department Care Team ([facility] st Contact Info) Description 06/18/2024 Refill [facility] [address] [place], [place] [phone] Alana Castillo MD [address] [place], [place] [phone] Moderate asthma with acute exacerbation, unspecified whether persistent Social History Tobacco Use Types Packs/Day Years Used Date Smoking Tobacco: Never Passive Smoke Exposure: Never Smokeless Tobacco: Never Alcohol Use Standard Drinks/Week Comments Never 0 (1 standard drink = 0.6 oz pur e alcohol) Depression Answer Date Recorded Patient Health Questionnaire-9 Score 0 02/14/2024 Patient Health Questionnaire-9 Score 0 02/14/2024 Last PHQ-9: Questionnaire Data Not on file 0 02/14/2024 Housing Stability Answer Date Recorded What is [...] Date Recorded Patient Health Questionnaire-2 Score 0 02/14/2024 Internet Access Answer Date Recorded Internet Access [...] Info) Description 12/07/2024 2:30 PM EDT Telemedicine [facility] [address] [place] [address] [place] [facility] [address] [place] [address] documented as of this encounter Visit Diagnoses Diagnosis Moderate asthma with acute exacerbation, unspecified whether persistent documented in this encounter Additional Health Concerns Assessment Noted Time PHQ-9 Depression Total Score: 0 02/14/20 2:22 PM EDT documented as of this encounter Care Teams Marine Consultant Relationship Specialty Start Date End Date Valerie Danielson [facility] [address] [place] [address] PCP - General Family Medicine 09/04/23 Barbie Slade Senior Commissions AnalystFreight Brake Operator 12/18/23 documented as of this encounter
--- OUTSIDE RECORDS SUMMARY | 2024-10-07 14:27 | XMS_ITS | Encounter Summary ---
Author Organization [employer] Address [address] [facility] [address] [place] [address] Care Team Providers Care Twister Doffer Name Role Phone [facility] Primary Care Provider [phone] Reason for Visit * Reason Comments Follow-up Encounter Details Date Type Department Care Team ([facility] Contact Info) Description 10/07/2024 11:15 AM EDT Office Visit [facility] [address] [place], [place] [phone] [facility] [address] [place], [place] [phone] Essential hypertension (Primary Dx); PCOS (polycystic ovarian syndrome); Primary hypertension Social History Tobacco Use Types Packs/Day Years [...] AM EDT documented as of this encounter Last Filed Vital Signs Vital Sign Reading Time Taken Comments Blood Pressure 143/94 10/07/2024 11:09 AM EDT Pulse 97 10/07/2024 11:09 AM EDT Temperature 36.1 ??C (96.9 ??F) 10/07/2024 11:09 AM E DT Respiratory Rate 20 10/07/2024 11:09 AM EDT Oxygen Saturation - - Inhaled Oxygen Concentration - - Weight 100 kg (220 lb 6.4 oz) 10/07/2024 11:09 A M EDT Height 167.6 cm (5' 6 ) 10/07/2024 11:09 AM EDT Body Mass Index 35.57 10/07/2024 11:09 AM EDT documented in this encounter Plan of Treatment Upcoming Encounters Date Type Department Care Team (Late st Contact Info) Description 12/07/2024 2:30 PM EDT Telemedicine [facility] [address] [place] [address] Valerie Danielson FNP [address] [place] [address] documented as of this encounter Procedures Procedure Name Priority Date/Time Associated Diagnosis Comments ALBUMIN, RANDOM URINE W/CREATININE Routine 10/07/2024 12:02 PM EDT Essential hypertension documented in this encounter Results * Albumin, Random Urine W/Creatinine (10/07/2024 12:02 PM EDT) Creatinine, Urine 270.85 mg/dL [facility] Microalbumin Urine 67.0 mg/L [facility] Microalbum Creatinine Ratio Ur 24.7 <30 ug/mg cr [facility] Comment:Albumin/Creatinine R atio Reference Ranges: Normal: < 30 ug/mg creatinine Microalbuminuria: 30 - 300 ug/mg creatinineClinical Albuminuria: > 300 ug/mg creatinine Urine 10/07/2024 12:0 2 PM EDT 10/07/2024 1:35 PM EDT [facility] LAB URINE ORDERABLES Final Re sult [facility] [address] [place] [address] [phone] documented in this encounter Visit Diagnoses Diagnosis Essential hypertension- Primary Unspecified essential hypertension PCOS (polycystic ovarian syndrome) Polycystic ovaries Primary hypertension Unspecified essential hypertension documented in this encounter Additional Health Concerns Assessment Noted Time PHQ-9 Depression Total Score: 0 10/08/19 25 11:19 AM EDT documented as of this encounter Care Teams Twister Doffer Relationship Specialty Start Date End Date Valerie Danielson FNP [address] [place] [phone] PCP - General Family Medicine 09/04/23 Barbie Slade Manager Environmental AffairsDish Technician 12/18/23 documented as of this encounter
--- OUTSIDE RECORDS SUMMARY | 2024-10-07 14:27 | XMS_ITS | Encounter Summary ---
Author Organization [employer] Address [address] [place] [address] Care Team Providers Care Sql Ssrs Ssis Developer Name Role Phone Valerie Danielson AIRPLANE RENTAL CLERK Primary Care Provider [phone] Reason for Visit * Reason Comments Med Refill Encounter Details Date Type Department Care Team ([facility] st Contact Info) Description 09/27/2023 Refill [facility] [address] [place], [place] [phone] Kayley Looney DO [address] [place], [place] [phone] Cough in adult; Moderate asthma with acute exacerbation, unspecified whether persistent Social History Tobacco Use Types Packs/Day Years Used Date Smoking Tobacco: Never Passive Smoke Exposure: Never Smokeless Tobacco: Never Alcohol Use Standard Drinks/Week Comments Never 0 (1 standard drink = 0.6 oz pur e alcohol) Depression Answer Date Recorded Patient Health Questionnaire-9 Score 0 09/11/2023 Patient Health Questionnaire-9 Score 0 09/11/2023 Last PHQ-9: Questionnaire Data Not on file 0 09/11/2023 Housing Stability Answer Date Recorded What is [...] Date Recorded Patient Health Questionnaire-2 Score 0 09/11/2023 Comments Unknown Sex and Gender Information Value Date Recorded Sex Assigned at Female 04/16/2022 10:18 AM EDT Legal Sex Female 10:18 AM EDT Gender Identity Female 04/16/2022 10:18 AM EDT Sexual Orientation Straight 04/16/2022 10 :18 AM EDT documented as of this encounter Plan of Treatment Upcoming Encounters Date Type Department Care Team (Late st Contact Info) Description 12/07/2024 2:30 PM EDT Telemedicine [facility] [address] [place] [address] [facility] [address] [place] [address] documented as of this encounter Visit Diagnoses Diagnosis Cough in adult Moderate asthma with acute exacerbation, unspecified whether persistent documented in this encounter Additional Health Concerns Assessment Noted Time PHQ-9 Depression Total Score: 0 09/11/19 2:55 PM EDT documented as of this encounter Care Teams Sql Ssrs Ssis Developer Relationship Specialty Start Date End Date FlynnValerie aj [facility] [address] [place] [address] PCP - General Family Medicine 09/04/23 Barbie Slade Mash Tub Cooker OperatorCharhouse Worker 12/18/23 documented as of this encounter
== END 2024-10-07 12:01 | disposition home or self-care (01) ==
LOC: HO.HHCL 12:00
PROVIDERS: Visit Provider Registered Nurse
DX: I10 Essential (primary) hypertension (principal)
CPT/HCPCS: 82043; 82570

== ENCOUNTER → 2024-10-30 19:30 | Outpatient (REF) | payer MEDICAID, SELFPAY | LOC: HO.SL 19:30 | PROVIDERS: PCP Registered Nurse; Visit Provider Registered Nurse | DX: Z13.89 Encounter for screening for other disorder (principal) ==

== ENCOUNTER 2024-11-09 17:18 | Emergency (ER) | payer MEDICAID, SELFPAY ==
--- NOTE | ~2024-11-09 | XR_ITS ---
CLINICAL HISTORY: cough 2 view chest x-ray Comparison: Chest x-ray from 08/10/2022 Findings: Mild bibasilar atelectasis and/or pneumonitis. No lobar consolidation. No pneumothorax or pleural effusion. Imaged mediastinum and imaged osseous structures appear unchanged. IMPRESSION: Mild bibasilar atelectasis and/or pneumonitis This document has been electronically signed by: Ashish Myers MD on 11/09/2024 18:42:41
[2024-11-09 17:23] VITALS: BP 150/100; PULSE 88; O2SAT 98
[2024-11-09 17:24] VITALS: BP 135/93; PULSE 100; RESP 19; TEMP 36.4; O2SAT 98; BMI 34.9
--- NOTE | 2024-11-09 17:25 | ED.GENADULT ---
HPI - General Adult General Chief complaint: Headache Stated complaint: Cough, headache Time Seen by Provider: 11/09/24 18:35 Source: patient, RN notes reviewed and old records reviewed Mode of arrival: EMS Limitations: no limitations History of Present Illness ED Provider: Bette BONILLA narrative: 19-year-old female presents for evaluation of cough, headache and ear pain. Patient reports for the last week she has had a cough, left ear pain and has developed a frontal headache. She reports facial pressure. Denies any fevers or chills pain Denies any shortness of breath No chest pain or abdominal pain Related Data Previous Rx's ?Medication ?Instructions ?Recorded albuterol sulfate 90 mcg/actuation 2 inh inhalation Q4-6H PRN 09/14/21 breath activated powder inhaler shortness of breath or wheezing #1 ea albuterol sulfate 90 mcg/actuation 2 inh inhalation Q4-6H PRN 02/04/22 breath activated powder inhaler shortness of breath or wheezing #1 ea prednisone 20 mg tablet 20 mg PO DAILY 4 days #4 tabs 02/04/22 albuterol sulfate 90 mcg/actuation 2 inh inhalation Q4-6H PRN 08/10/22 breath activated powder inhaler shortness of breath or wheezing #1 ea prednisone 20 mg tablet 40 mg (2 x 20 mg) PO DAILY 5 days 08/10/22 #10 tabs albuterol sulfate 90 mcg/actuation 2 puff inhalation Q4-6H PRN 01/25/23 aerosol inhaler (ProAir HFA) shortness of breath or wheezing #8.5 grams prednisone 50 mg tablet 50 mg PO DAILY #4 tabs 01/25/23 cephalexin 500 mg capsule 500 mg PO BID 10 days #19 caps 01/05/24 albuterol sulfate 90 mcg/actuation 2 puff inhalation QID PRN 01/30/24 aerosol inhaler shortness of breath or wheezing #6.7 grams budesonide-formoterol HFA 80 1 inh inhalation BID #10.2 grams 01/30/24 mcg-4.5 mcg/actuation aerosol inhaler prednisone 20 mg tablet 40 mg (2 x 20 mg) PO DAILY 4 days 01/30/24 #8 tabs amoxicillin 875 mg-potassium 1 tab PO Q12H #20 tabs 11/09/24 clavulanate 125 mg tablet ibuprofen 600 mg tablet 600 mg PO Q6H PRN pain #20 tabs 11/09/24 Allergies Allergy/AdvReac Type Severity Reaction Status Date / Time Seasonal Allergies Allergy Mild Nasal Verified 11/09/24 17:26 congestion Review of Systems Constitutional: Constitutional: Denies body ache(s), Denies chills, Denies fever(s) and Reports headache(s) Eyes: Eyes: Denies blurry vision ENT: Denies vertigo, Denies dizziness, Reports otalgia, Reports headache(s) and Denies sore throat Cardiovascular: Cardiovascular: Denies chest pain Respiratory: Respiratory: Reports cough Gastrointestinal: Gastrointestinal: Denies abdominal pain, Denies nausea and Denies vomiting Musculoskeletal: Musculoskeletal: Denies back pain Integumentary/Breasts: Skin/Breast: Denies rash Neurologic: Denies vertigo, Denies dizziness and Reports headache(s) ON LICENSE OF [facility] Past Medical History Medical History Asthma Social History Social History Alcohol intake: never Patient Tobacco Use Status: Never used Tobacco Advance Directives: No Advance Directives Information Provided: No Physical Exam ED Vital Signs: Vital Signs - 24 hr 11/09/24 17:24 11/09/24 18:59 Temperature 97.5 F 97.5 F Pulse Rate 100 100 Respiratory Rate 19 19 Blood Pressure 135/93 H 135/93 H Pulse Oximetry 98 98 Oxygen Delivery Method Room Air Room Air BMI result Body Mass Index 34.9 Const General: healthy appearing, comfortable, no acute distress, alert and awake Nutritional Appearance: well nourished Orientation/consciousness: patient oriented x3 HENMT Other: No mastoid tenderness, no pre or postauricular edema Head: Yes normocephalic and Yes atraumatic Ears: TM's normal bilaterally and EAC's normal Throat: Yes posterior oropharynx normal Eyes Eyelids: Yes eyelids normal Conjunctivae: conjunctivae normal Sclerae: sclerae normal Corneas: corneas normal Pupils: Equal, round and reactive pupils present EOM: EOMs intact bilaterally Neck Neck: Yes full ROM Resp Effort & Inspection: normal respiratory effort, able to speak in complete sentences, no audible wheezes and not labored Auscultation: clear to auscultation bilaterally Cardio Rate: regular rate Rhythm: regular rhythm Skin General skin exam: elasticity normal Neuro General: patient oriented x3 Cranial nerves: Yes Equal, round and reactive pupils present and Yes Bilaterally intact EOM present Cognition (Neuro): normal cognition Extrem Other: Moving all extremities well without any obvious deformities Course Course Course Narrative: RME, this is a rapid medical exam performed by Larry Amos please refer to primary provider for complete H&P- 19 year old female presents for evaluation of cough, headache and ear pain. Symptoms started about a week ago. Plan for viral swabs and chest x-ray Medical Decision Making Medical Decision Making MDM Narrative: 19-year-old female presents for evaluation of cough, congestion and ear pain. There was no evidence of otitis media on exam. No cerumen impaction or foreign body. No evidence of otitis externa. Chest x-ray is clear by my read. No focal infiltrates or consolidation. Viral swabs negative. We will treat the patient for acute sinusitis Differential Diagnosis Differential Diagnoses: The differential diagnosis associated with the presentation includes Acute sinusitis Viral syndrome Pneumonia Otitis media Otitis externa Cerumen impaction Lab Data Labs: Lab Results 11/09/24 Range/Units 17:43 Influenza Type A (PCR) NEGATIVE (Negative) Influenza Type B (PCR) NEGATIVE (Negative) RSV RNA Qual (PCR) NEGATIVE (Negative) SARS-CoV-2 RNA (RT-PCR) NEGATIVE (Negative) S. pyogenes GrpA ARLETTE Negative (Negative) Discharge Plan Discharge Clinical Impression: Acute sinusitis Patient Disposition: Home, Self-Care Instructions: Sinusitis (ED) Additional Instructions: Take the antibiotic twice daily for 10 days to treat a sinus infection. Use ibuprofen/Tylenol for pain Your workup in the ER was reassuring. You do not have influenza, COVID, RSV, or strep Return for new or worsening symptoms Prescriptions: New amoxicillin-pot clavulanate 875-125 mg tablet 1 tab PO Q12H Qty: 20 0RF ibuprofen 600 mg tablet 600 mg PO Q6H PRN (Reason: pain) Qty: 20 0RF No Action albuterol sulfate 90 mcg/actuation aerosol powdr breath activated 2 inh inhalation Q4-6H PRN (Reason: shortness of breath or wheezing) Qty: 1 0RF albuterol sulfate 90 mcg/actuation aerosol powdr breath activated 2 inh inhalation Q4-6H PRN (Reason: shortness of breath or wheezing) Qty: 1 0RF prednisone 20 mg tablet 20 mg PO DAILY 4 Days Qty: 4 0RF albuterol sulfate 90 mcg/actuation aerosol powdr breath activated 2 inh inhalation Q4-6H PRN (Reason: shortness of breath or wheezing) Qty: 1 0RF prednisone 20 mg tablet 40 mg PO DAILY 5 Days Qty: 10 0RF albuterol sulfate [ProAir HFA] 90 mcg/actuation HFA aerosol inhaler 2 puff inhalation Q4-6H PRN (Reason: shortness of breath or wheezing) Qty: 8.5 1RF prednisone 50 mg tablet 50 mg PO DAILY Qty: 4 0RF prednisone 20 mg tablet 40 mg PO DAILY 4 Days Qty: 8 0RF albuterol sulfate 90 mcg/actuation HFA aerosol inhaler 2 puff inhalation QID PRN (Reason: shortness of breath or wheezing) Qty: 6.7 0RF budesonide-formoterol 80-4.5 mcg/actuation HFA aerosol inhaler 1 inh inhalation BID Qty: 10.2 0RF Rx Instructions: rinse mouth after immediately after use cephalexin 500 mg capsule 500 mg PO BID 10 Days Qty: 19 0RF Interventions: ED Discharge Assessment Last Done: 11/09/24 18:59 Discharge Date/Time: 11/09/24 19:00 Print Language: Italian
--- OUTSIDE RECORDS SUMMARY | 2024-11-09 17:48 | XMS_ITS | Encounter Summary ---
Author Organization [employer] Address [address] [facility] [address] [place] [address] Care Team Providers Care Coke Loader Name Role Phone DilciassuannayuriKayley Primary Care Provider [phone] [facility] Primary Care Provider [phone] Encounter Details Date Type Department Care Team (Late st Contact Info) Description 05/09/2022 Abstract [facility] OR[facility]ONT[facility] [address] [place], [place] [id number] Dental, Provider, DDS Social History Tobacco Use [...] Info) Description 12/07/2024 2:30 PM EDT Telemedicine [facility] MEDICINE [address] [place], [place] [id number] [facility] [address] [place] [address] documented as of this encounter Procedures Procedure [...] on filedocumented in this encounter Care Teams Coke Loader Relationship Specialty Start Date End Date Kayley Loonye DO [address] [place] [address] PCP - General Pediatrics 02/11/13 09/03/23 [facility] [address] [place] [address] PCP - General Family Medicine 09/04/23 Barbie Slade [employer] Operator[employer] Associate [employer] Qc 12/18/23 documented as of this encounter
[2024-11-09 17:56] LABS: IDNOW Serial# 58CA691E; Strep A Nucleic Acid Negative (Negative)
[2024-11-09 18:24] LABS: Influenza A PCR NEGATIVE (Negative); Influenza B PCR NEGATIVE (Negative); Resp Syncy Virus RNA Qual PCR NEGATIVE (Negative); SARS COV2 PCR INHOUSE NEGATIVE (Negative)
[2024-11-09 18:59] VITALS: BP 135/93; PULSE 100; RESP 19; TEMP 36.4; O2SAT 98
== END 2024-11-09 19:00 | disposition home or self-care (01) ==
PROVIDERS: Physician Assistant; Emergency Provider Emergency Medicine; PCP Registered Nurse
DX: J01.90 Acute sinusitis, unspecified (principal); R05.9 Cough, unspecified; R51.9 Headache, unspecified; H92.02 Otalgia, left ear; J45.909 Unspecified asthma, uncomplicated; Z03.818 Encounter for observation for suspected exposure to other biological agents ruled out
CPT/HCPCS: 0241U; 71046; 87651; 99282; 99283

== ENCOUNTER → 2024-11-09 17:25 | Outpatient (BNV) | payer MEDICAID, SELFPAY | PROVIDERS: Emergency Provider Emergency Medicine; PCP Registered Nurse; Visit Provider Radiology Neuroradiology | DX: R05.9 Cough, unspecified (principal) | CPT/HCPCS: 71046 ==

== ENCOUNTER 2025-01-12 18:10 | Outpatient (REF) | payer MEDICAID, SELFPAY ==
[2025-01-13 04:49] LABS: Bacterial Vaginosis PCR NEGATIVE (Negative); Candida Group PCR DETECTED (Not Detect); Candida glab krusei PCR NOT DETECTED (Not Detect); Trichomonas vaginalis PCR NOT DETECTED (Not Detect)
== END 2025-01-12 18:11 | disposition home or self-care (01) ==
LOC: HO.LNP 18:10
PROVIDERS: Visit Provider Registered Nurse
DX: N89.8 Other specified noninflammatory disorders of vagina (principal)
CPT/HCPCS: 81515

== ENCOUNTER 2025-02-11 13:40 | Emergency (ER) | payer MEDICAID, SELFPAY ==
--- NOTE | ~2025-02-11 | XR_ITS ---
EXAMINATION: XR CHEST CLINICAL INFORMATION: CP COMPARISON: November 09, 2024 TECHNIQUE: 2 views of the chest were obtained. FINDINGS: No consolidation, pleural effusion or pneumothorax. No hyperinflation. Cardiomediastinal silhouette size is normal. Osseous structures are grossly intact. Patient's large body habitus/obesity. XR/XR chest 2V IMPRESSION: No acute airspace disease. Electronically signed by: Trever Elise MD 02/11/2025 02:57 PM EDT
--- NOTE | 2025-02-11 13:42 | ECG_ITS ---
Test Reason : CP Blood Pressure : */* mmHG Vent. Rate : 92 BPM Atrial Rate : 92 BPM P-R Int : 138 ms QRS Dur : 92 ms QT Int : 346 ms P-R-T Axes : 49 55 27 degrees QTcB Int : 427 ms Normal sinus rhythm Normal ECG When compared with ECG of 05-Jan-2024 20:51, No significant change was found Referred By: Ange Frank Electronically Signed By: STUART GARNETT
--- NOTE | 2025-02-11 14:20 | ED_ITS ---
HPI - Chest Pain General Chief Complaint: Chest Pain Stated Complaint: Chest pain Time Seen by Provider: 02/11/25 17:11 Source: patient, RN notes reviewed and old records reviewed Mode of arrival: ambulatory Limitations: no limitations History of Present Illness ED Provider: Bette BONILLA narrative: 20-year-old female with a past medical history significant for PCOS, asthma, hypertension, obesity presents for evaluation of chest pain. Patient reports midsternal chest pain since last night around 9:00 p.m. pain She was lying down when the pain started. She did not eat prior to the onset of her pain. She has associated shortness of breath with some tightness. She has some congestion and a dry cough. Denies any leg swelling pain She reports starting oral contraception 2 weeks ago. Denies any medication changes pain Denies any fevers, chills Denies any history of cardiac disease or blood clots Related Data Previous Rx's ?Medication ?Instructions ?Recorded albuterol sulfate 90 mcg/actuation 2 inh inhalation Q4 -6H PRN 09/14/21 breath activated powder inhaler shortness of breath or wheezing #1 ea albuterol sulfate 90 mcg/actuation 2 inh inhalation Q4 -6H PRN 02/04/22 breath activated powder inhaler shortness of breath or wheezing #1 ea prednisone 20 mg tablet 20 mg PO DAILY 4 days #4 tab s 02/04/22 albuterol sulfate 90 mcg/actuation 2 inh inhalation Q4 -6H PRN 08/10/22 breath activated powder inhaler shortness of breath or wheezing #1 ea prednisone 20 mg tablet 40 mg (2 x 20 mg) PO DAILY 5 days 08/10/22 #10 tabs albuterol sulfate 90 mcg/actuation 2 puff inhalation Q 4-6H PRN 01/25/23 aerosol inhaler (ProAir HFA) shortness of breath or wh eezing #8.5 grams prednisone 50 mg tablet 50 mg PO DAILY #4 tabs 01/25 cephalexin 500 mg capsule 500 mg PO BID 10 days #19 ca ps 01/05/24 albuterol sulfate 90 mcg/actuation 2 puff inhalation Q ID PRN 01/30/24 aerosol inhaler shortness of breath or wheez ing #6.7 grams budesonide-formoterol HFA 80 1 inh inhalation BID #10. 2 grams 01/30/24 mcg-4.5 mcg/actuation aerosol inhaler prednisone 20 mg tablet 40 mg (2 x 20 mg) PO DAILY 4 days 01/30/24 #8 tabs amoxicillin 875 mg-potassium 1 tab PO Q12H #20 tabs clavulanate 125 mg tablet ibuprofen 600 mg tablet 600 mg PO Q6H PRN pain #20 t abs 11/09/24 prednisone 20 mg tablet 40 mg (2 x 20 mg) PO DAILY # 10 tabs 02/11/25 Allergies Allergy/AdvReac Type Severity Reaction Status Date / Time Seasonal Allergies Allergy Mild Nasal Verified 02/11/25 14:24 congestion Review of Systems 2 Constitutional: Constitutional: Denies body ache(s) and Denies chills Eyes: Eyes: Denies blurry vision ENT: Denies dizziness and Denies dry mouth Cardiovascular: Cardiovascular: Reports chest pain, Reports chest pain at rest and Reports dyspnea Respiratory: Respiratory: Reports cough, Denies excessive phlegm production, Denies pain on inspiration, Denies pain with cough, Reports dyspnea and Reports wheezing Gastrointestinal: Gastrointestinal: Denies abdominal pain, Denies nausea and Denies vomiting Musculoskeletal: Musculoskeletal: Denies back pain Neurologic: Denies dizziness Psychiatric: Psychiatric: Denies anxiety Allergic/Immunologic: Allergic/Immunologic: Reports wheezing PMFSH Past Medical History Medical History Asthma Social History Social History Alcohol intake: never Patient Tobacco Use Status: Never used Tobacco Advance Directives: No Advance Directives Information Provided: No Physical Exam 2 Vital Signs: Vital Signs: Last Vital Signs Temp 98.1 F 02/11/25 18:23 Pulse 82 02/11/25 18:23 Resp 13 02/11/25 18:23 BP 141/89 H 02/11/25 18:23 Pulse Ox 97 02/11/25 18:23 O2 Del Method Room Air 02/11/25 18:23 BMI result Body Mass Index 34.2 Const: General: healthy appearing, comfortable, no acute distress, alert and awake Nutritional Appearance: well nourished Orientation/consciousness: p atient oriented x3 HEENT: Head: Yes normocephalic and Yes atraumatic Eyes: Eyelids: Yes eyelids normal Conjunctivae: conjunctivae normal S clerae: sclerae normal Corneas: corneas normal Pupils: Equal, round and reactive pupils present EOM: EOMs intact bilaterally Neck: Neck: Yes full ROM Chest: Other: There was midsternal chest wall tenderness on exam without crepitus Chest palpation & inspection: normal inspection of the chest and no crepitus Resp: Effort & Inspection: normal respiratory effort, able to speak in complete sentences and not labored Auscultation: wheezes (Right upper lobe) Cardio: Rate: regular rate Rhythm: regular rhythm GI: Inspection: No distended Palpation (GI): Soft to palpation, not firm, nontender, no guarding and not rigid Skin: General skin exam: no rashes or lesions noted and elasticity normal Neuro: General: patient oriented x3 Cranial nerves: Yes Equal, round and reactive pupils present and Yes Bilaterally intact EOM present Cognition (Neuro): normal cognition Course Course Course Narrative: This is an RME: Additional HPI, ROS, PE not included below will be deferred to primary provider. RME assessment and note performed by: Ange Frank PA-C This is a 76-sbzj--female, with a hx of PCOS, HTN, asthma, who presents to the ER with complaints of chest pain since last night. Reporting stabbing midsternal chest pain since last night. Reports that she was laying down and the pain started. Pain is constant and worsening. No N/V/D/PATIÑO. No recent travel, surgery, hospitalizations. No hx of blood clots. On OCPs. 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 Plan: Labs, EKG, CXR Medical Decision Making Medical Decision Making [facility] Narrative: 20-year-old female past medical history as above presents for evaluation of chest pain since last night. Her pain waxes and wanes in intensity but is always present. He is currently a 4/10. She has faint wheezing on exam mostly in the right upper lobe. Chest x-ray is clear, no evidence of infiltrates, pleural effusions. The patient's EKG is nonischemic, her troponin is negative despite her pain starting about 20 hours ago. She rules out for ACS. Given her recent initiation of oral contraception we will get a D-dimer to help rule out PE. Wells score is 0. Pain is reproducible on exam and her pain may be related to chest wall strain versus costochondritis. No abdominal pain or tenderness on exam. Labs are unremarkable except for a mild eosinophilia Differential Diagnosis Differential Diagnoses: The differential diagnosis associated with the presentation includes Chest pain Chest wall pain Bronchitis Pneumonia Upper respiratory infection ACS less likely PE less likely Admission/Observation Consideration of admission/observation: Escalation of care including admission/observation considered Lab Data MDM Lab Attestation statement: I reviewed the patient's lab results. No leukocytosis or anemia. Normal platelet count. No significant electrolyte abnormalities warranting intervention. Troponin negative 02/11/25 14:39 02/11/25 14:39 Labs: Lab Results 02/11/25 02/11/25 Range/Units 14:39 18:26 WBC 8.6 (4.8-10.8) X10*3/uL RBC 4.75 (4.20-5.50) X10*6/uL Hgb 12.4 (12.0-16.0) g/dl Hct 38.5 (37.0-47.0) % MCV 81.1 (80.0-98.0) fL MCH 26.1 L (27.0-33.0) pg MCHC 32.2 (31.0-35.0) g/dl RDW 13.9 (11.0-16.0) % Plt Count 383 (160-400) X10*3/uL MPV 9.4 (9.4-12.3) fL Immature Gran % (Auto) 0.3 (0.0-0.4) % Neut % (Auto) 57.8 (45-73) % Lymph % (Auto) 26.9 (20-40) % [place] % (Auto) 6.8 (2-11) % Eos % (Auto) 6.9 H (0-4) % Baso % (Auto) 1.3 (0-2) % Lymph # (Auto) 2.3 (1.2-4.9) X10*3/uL [place] # (Auto) 0.6 (0.1-1.2) X10*3/uL Eos # (Auto) 0.6 H (0.0-0.4) X10*3/uL Baso # (Auto) 0.1 (0.0-0.2) X10*3/uL Abs Immat Gran (auto) 0.03 (0.00-0.03) X10*3/uL Absolute Neuts (auto) 5.0 (2.0-8.3) x10*3/uL Absolute Nucleated RBC 0.000 (0.0-0.012) X10*3/uL Nucleated RBC % (auto) 0.0 (0.0-0.2) /100WBC D-Dimer High Sensitivty < 150 NG/ML Sodium 140 (135-145) mmol/L Potassium 4.2 (3.3-5.1) mmol/L Chloride 108 (96-108) mmol/L Carbon Dioxide 24 (22-29) mmol/L Anion Gap 12 (12-20) BUN 16 (9-16) mg/dL Creatinine 0.77 (0.5-1.4) mg/dL Estim Creat Clear Calc 144.4 Estimated GFR > 60 Random Glucose 88 (60-115) mg/dL Calcium 9.0 (8.4-10.2) mg/dL Magnesium 2.3 (1.6-2.6) mg/dL Total Bilirubin 0.2 (0.0-1.0) mg/dL Direct Bilirubin < 0.2 (0.0-0.5) mg/dL AST 21 (5-31) U/L ALT 24 (0-31) U/L Alkaline Phosphatase 70 (39-117) U/L Troponin I High Sens < 2.7 (<3.5-17.0) ng/L Total Protein 7.7 (6.5-8.0) g/dL Albumin 4.5 (3.5-5.0) g/dL Beta HCG, Quant < 2 mIU/mL Independent Interpretation I performed an independent interpretation of an: EKG (Normal sinus rhythm with a rate of [address] segment elevations or depressions. Nondiagnostic EKG) and Plain X-Ray (Agree with Radiology interpretation, no focal infiltrates or effusions) Radiology Impression Discussion of test interpretation with radiology: I have reviewed the radiologist's reading. Radiologist Impression: FINDINGS: No consolidation, pleural effusion or pneumothorax. No hyperinflation. Cardiomediastinal silhouette size is normal. Osseous structures are grossly intact. Patient's large body habitus/obesity. XR/XR chest 2V IMPRESSION: No acute airspace disease. Electronically signed by: Trever Elise MD 02/11/2025 02:57 PM EDT RP Discharge Plan Discharge Clinical Impression: Chest pain Patient Disposition: Home, Self-Care Instructions: Chest Pain (ED) Additional Instructions: Your workup in the ER today was reassuring. This includes your blood work, your chest x-ray, your EKG. Your symptoms may be related to inflammation your ribs You may take prednisone 40 mg daily for the next 5 days. Use your albuterol inhalers as prescribed Follow-up with your primary doctor, return for new or worsening symptoms Prescriptions: New prednisone 20 mg tablet 40 mg PO DAILY Qty: 10 0RF No Action albuterol sulfate 90 mcg/actuation aerosol powdr breath activated 2 inh inhalation Q4-6H PRN (Reason: shortness of breath or wheezing) Qty: 1 0RF albuterol sulfate 90 mcg/actuation aerosol powdr breath activated 2 inh inhalation Q4-6H PRN (Reason: shortness of breath or wheezing) Qty: 1 0RF prednisone 20 mg tablet 20 mg PO DAILY 4 Days Qty: 4 0RF albuterol sulfate 90 mcg/actuation aerosol powdr breath activated 2 inh inhalation Q4-6H PRN (Reason: shortness of breath or wheezing) Qty: 1 0RF prednisone 20 mg tablet 40 mg PO DAILY 5 Days Qty: 10 0RF albuterol sulfate [ProAir HFA] 90 mcg/actuation HFA aerosol inhaler 2 puff inhalation Q4-6H PRN (Reason: shortness of breath or wheezing) Qty: 8.5 1RF prednisone 50 mg tablet 50 mg PO DAILY Qty: 4 0RF prednisone 20 mg tablet 40 mg PO DAILY 4 Days Qty: 8 0RF albuterol sulfate 90 mcg/actuation HFA aerosol inhaler 2 puff inhalation QID PRN (Reason: shortness of breath or wheezing) Qty: 6.7 0RF budesonide-formoterol 80-4.5 mcg/actuation HFA aerosol inhaler 1 inh inhalation BID Qty: 10.2 0RF Rx Instructions: rinse mouth after immediately after use cephalexin 500 mg capsule 500 mg PO BID 10 Days Qty: 19 0RF amoxicillin-pot clavulanate 875-125 mg tablet 1 tab PO Q12H Qty: 20 0RF ibuprofen 600 mg tablet 600 mg PO Q6H PRN (Reason: pain) Qty: 20 0RF Print Language: Sami
[2025-02-11 14:21] VITALS: BP 140/86; PULSE 89; RESP 18; TEMP 37; O2SAT 100; BMI 34.2
[2025-02-11 14:52] LABS: MANUAL DIFF FLAG NO
[2025-02-11 14:55] LABS: Hematocrit 38.5 % (37.0-47.0); Hemoglobin 12.4 g/dl (12.0-16.0); Imm Gran Abs Auto 0.03 X10*3/uL (0.00-0.03); Imm Gran Pct Auto 0.3 % (0.0-0.4); Lymphocytes Absolute Auto 2.3 X10*3/uL (1.2-4.9); Mean Corpuscular HGB Conc 32.2 g/dl (31.0-35.0); Mean Corpuscular Hemoglobin 26.1 pg (27.0-33.0); Mean Corpuscular Volume 81.1 fL (80.0-98.0); NRBC Abs Auto 0.000 X10*3/uL (0.0-0.012); NRBC Pct Auto 0.0 /100WBC (0.0-0.2); Platelet Count 383 X10*3/uL (160-400); Red Blood Count 4.75 X10*6/uL (4.20-5.50); White Blood Count 8.6 X10*3/uL (4.8-10.8)
--- NOTE | 2025-02-11 15:48 | PC.NURSE ---
CHARLES adjusted by triaging RN to reflect work-up that has come back
[2025-02-11 16:04] LABS: Alanine Aminotransferase 24 U/L (0-31); Albumin Level 4.5 g/dL (3.5-5.0); Alkaline Phosphatase 70 U/L (39-117); Anion Gap 12 (12-20); Aspartate Amino Transferase 21 U/L (5-31); Blood Urea Nitrogen 16 mg/dL (9-16); Calcium 9.0 mg/dL (8.4-10.2); Carbon Dioxide 24 mmol/L (22-29); Chloride 108 mmol/L (96-108); Creatinine Clr Calc Pharmacy 144.4; Estimated Glomerular Filt Rate > 60; Magnesium 2.3 mg/dL (1.6-2.6); Potassium 4.2 mmol/L (3.3-5.1); Sodium 140 mmol/L (135-145); Total Protein 7.7 g/dL (6.5-8.0)
[2025-02-11 16:05] LABS: Troponin-I High Sensitivity < 2.7 ng/L (<3.5-17.0)
--- OUTSIDE RECORDS SUMMARY | 2025-02-11 16:51 | XMS_ITS | Encounter Summary ---
Author Organization [email or web address] Address [address] [facility] [address] [facility] [address] [place] [address] Care Team Providers Care Refrigeration Specialist Name Role Phone Jagjit [facility] Primary Care Provider [phone] Reason for Visit * Reason Onset Date Comments Returning Call 12/07/2024 Encounter Details Date Type Department Care Team ([facility] Contact Info) Description 12/07/2024 Telephone [facility] [address] [place], [place] [phone] [facility] [address] [place], [place] [phone] Returning Call Social History Tobacco Use Types Packs/Day Years [...] encounter Miscellaneous Notes * Telephone Encounter - Kenrick Villasenor - 12/07/2024 2:38 PM EDT Tc from pt returning call regarding telephone visit. documented in this encounter Plan of Treatment Upcoming Encounters Date Type Department Care Team (Late st Contact Info) Description 02/16/2025 8:30 AM EDT Office Visit [facility] [address] [place] [address] 03/05/2025 1:15 PM EDT Office Visit [facility] [address] [place] [address] Valerie Danielson [facility] [address] [place] [address] documented as of this encounter Visit Diagnoses Not on filedocumented in this encounter Additional Health Concerns Assessment Noted Time PHQ-9 Depression Total Score: 0 10/08/19 11:19 AM EDT documented as of this encounter Care Teams Refrigeration Specialist Relationship Specialty Start Date End Date Valerie Danielson FNP [address] [place] [address] PCP - General Family Medicine 09/04/23 Barbie Slade [employer] Examiner 12/16/24 documented as of this encounter
--- OUTSIDE RECORDS SUMMARY | 2025-02-11 16:51 | XMS_ITS | Encounter Summary ---
Author Organization [employer] Address [address] [facility] 7t [place] [address] Care Team Providers Care Dining Room Attendant Cafeteria Name Role Phone Kayley Looney DO Primary Care Provider [phone] [facility] Primary Care Provider [phone] Reason for Visit * Reason Onset Date Comments Med Refill 04/26/2023 Encounter Details Date Type Department Care Team ([facility] st Contact Info) Description 04/26/2023 Refill [facility] [address] [place] [address] Kayley Looney DO [address] [place], [place] [phone] Cough in adult; Moderate asthma with acute [...] Base) MCG/ACT inhaler to be sent to [facility] documented in this encounter Plan of Treatment Upcoming Encounters Date Type Department Care Team (Late st Contact Info) Description 02/16/2025 8:30 AM EDT Office Visit [facility] [place] [address] 03/05/2025 1:15 PM EDT Office Visit [facility] [address] [place] [address] Valerie Danielson FNP [address] [place] [address] documented as of this encounter Visit Diagnoses Diagnosis Cough in adult Moderate asthma with acute exacerbation, unspecified whether persistent documented in this encounter Care Teams Dining Room Attendant Cafeteria Relationship Specialty Start Date End Date Kayley Looney DO [address] [place] [address] PCP - General Pediatrics 02/11/13 09/03/23 Valerie Danielson FNP [address] [place] [address] PCP - General Family Medicine 09/04/23 Barbie Slade Public Relations SpecialistSolar Energy Systems Engineer 12/16/24 documented as of this encounter
--- OUTSIDE RECORDS SUMMARY | 2025-02-11 16:51 | XMS_ITS | Encounter Summary ---
Author Organization [employer] Address 75 [facility] 7t [place] [address] Care Team Providers Care Clerical Warehouse Worker Name Role Phone Valerie Danielson EDITORIAL ASSISTANT Primary Care Provider [phone] Reason for Visit * Reason Comments Med Refill Encounter Details Date Type Department Care Team ([facility] st Contact Info) Description 09/27/2023 Refill [facility] [address] [place], [place] [phone] Kayley Looney DO [address] [place], [place] [phone] Cough in adult; Moderate asthma with acute [...] Description 02/16/2025 8:30 AM EDT Office Visit [facility] [address] [place] [address] 03/05/2025 1:15 PM EDT Office Visit [facility] [address] [place] [phone] Valerie Danielson FNP [address] [place] [address] documented as of this encounter Visit Diagnoses Diagnosis Cough in adult Moderate asthma with acute exacerbation, unspecified whether persistent documented in this encounter Additional Health Concerns Assessment Noted Time PHQ-9 Depression Total Score: 0 09/11/19 24 2:55 PM EDT documented as of this encounter Care Teams Clerical Warehouse Worker Relationship Specialty Start Date End Date Valerie Danielson FNP [address] [place] [phone] PCP - General Family Medicine 09/04/23 Barbie Slade Invas TechDirector Of User Experience 12/16/24 documented as of this encounter
--- OUTSIDE RECORDS SUMMARY | 2025-02-11 16:51 | XMS_ITS | Encounter Summary ---
Author Organization [email or web address] Address 75 [facility] 7t [place] [address] Care Team Providers Care Glass Wool Blanket Machine Feeder Name Role Phone Kayley Looney DO Primary Care Provider [phone] [facility] Primary Care Provider [phone] Reason for Visit * Reason Comments Med Refill Encounter Details Date Type Department Care Team (Late st Contact Info) Description 07/08/2023 Refill [facility] [address] [place] [address] Kayley Looney DO [address] [place], [place] [phone] Cough in adult; Moderate asthma with acute [...] Description 02/16/2025 8:30 AM EDT Office Visit [facility] [address] [place], [place] [phone] 03/05/2025 1:15 PM EDT Office Visit [facility] [address] [place], [place] [phone] [facility] [address] [place] [address] documented as of this encounter Visit Diagnoses Diagnosis Cough in adult Moderate asthma with acute exacerbation, unspecified whether persistent documented in this encounter Care Teams Glass Wool Blanket Machine Feeder Relationship Specialty Start Date End Date Kayley Looney DO [address] [place] [address] PCP - General Pediatrics 02/11/13 09/03/23 [facility] [address] [place] [address] PCP - General Family Medicine 09/04/23 Barbie Slade Section Leader Screen PrintingBus Info Consultant 12/16/24 documented as of this encounter
--- OUTSIDE RECORDS SUMMARY | 2025-02-11 16:51 | XMS_ITS | Encounter Summary ---
Author Organization [employer] Address 75 [facility] 7t [place] [address] Care Team Providers Care Marketing Sales Manager Name Role Phone Valerie Danielson COMMANDING OFFICER TRAFFIC DIVISION Primary Care Provider [phone] Reason for Visit * Reason Comments Med Refill Encounter Details Date Type Department Care Team ([facility] st Contact Info) Description 06/18/2024 Refill [facility] [address] [place], [place] [phone] Alana Castillo MD [address] [place], [place] [phone] Moderate asthma with acute exacerbation, unspecified whether [...] Description 02/16/2025 8:30 AM EDT Office Visit [facility] [address] [place] [address] 03/05/2025 1:15 PM EDT Office Visit [facility] [address] [place] [address] [address] [address] documented as of this encounter Visit Diagnoses Diagnosis Moderate asthma with acute exacerbation, unspecified whether persistent documented in this encounter Additional Health Concerns Assessment Noted Time PHQ-9 Depression Total Score: 0 02/14/20 24 2:22 PM EDT documented as of this encounter Care Teams Marketing Sales Manager Relationship Specialty Start Date End Date Valerie Dnaielson FNP [address] [place] [phone] PCP - General Family Medicine 09/04/23 Barbie Slade Diver'S TenderSoccer Referee 12/16/24 documented as of this encounter
--- OUTSIDE RECORDS SUMMARY | 2025-02-11 16:51 | XMS_ITS | Encounter Summary ---
Author Organization [employer] Address 75 [facility] 7t [place] [address] Care Team Providers Care Postal Service Clerk Name Role Phone [place] [facility] Primary Care Provider [phone] Reason for Visit * Reason Comments Med Refill Encounter Details Date Type Department Care Team ([facility] st Contact Info) Description 10/21/2024 Refill [facility] [address] [place], [place] [phone] [facility] [address] [place] [address] Moderate asthma with acute exacerbation, unspecified whether persistent; Cough in adult Social History Tobacco Use Types Packs/Day Years [...] Description 02/16/2025 8:30 AM EDT Office Visit [facility] [address] [place] [address] 03/05/2025 1:15 PM EDT Office Visit [facility] [address] [place] [address] [facility] [address] [place] [address] documented as of this encounter Visit Diagnoses Diagnosis Moderate asthma with acute exacerbation, unspecified whether persistent Cough in adult documented in this encounter Additional Health Concerns Assessment Noted Time PHQ-9 Depression Total Score: 0 10/08/19 11:19 AM EDT documented as of this encounter Care Teams Postal Service Clerk Relationship Specialty Start Date End Date MinneapolisValerie [facility] [address] [place] [address] PCP - General Family Medicine 09/04/23 Barbie Slade Senior Business Intelligence AnalystImpregnator Carbon Products 12/16/24 documented as of this encounter
--- OUTSIDE RECORDS SUMMARY | 2025-02-11 16:51 | XMS_ITS | Encounter Summary ---
Author Organization [employer] Address 75 [facility] 7t [place] [address] Care Team Providers Care Industrial Psychology Professor Name Role Phone Valerie Danielson EMERY WHEEL MOLDER Primary Care Provider [phone] Encounter Details Date Type Department Care Team ([facility] Contact Info) Description 02/11/2025 Orders Only GENERIC EXTERNAL DATA DEPARTMENT Provider, Generic External Data Social History Tobacco Use Types Packs/Day Years [...] Description 02/16/2025 8:30 AM EDT Office Visit [facility] [address] [place] [address] 03/05/2025 1:15 PM EDT Office Visit [facility] [address] [place], [place] [phone] [place], [place], EMERY WHEEL MOLDER [address] [place] [address] documented as of this encounter Procedures Procedure Name Priority Date/Time Associated Diagnosis Comments HIGH SENSITIVITY TROPONIN I Routine 02/11/2025 2:39 PM EDT CBC WITH AUTO DIFFERENTIAL Routine 02/11/2025 2:39 PM EDT HCG, TOTAL, QN Routine 02/11/2025 2:39 PM EDT MAGNESIUM Routine 02/11/2025 2:39 PM EDT HEPATIC FUNCTION PANEL Routine 02/11/2025 2:39 PM EDT BASIC METABOLIC PANEL Routine 02/11/2025 2:39 PM EDT XR CHEST 2 VIEWS Routine 02/11/2025 1:54 PM EDT documented in this encounter Results * High Sensitivity Troponin I (02/11/2025 2:39 PM EDT) TROPONIN I HIGH SENSITIVITY <2.7 <3.5 - 17.0 ng/L [facility] Comment:The Louis high sens itivity Troponin-I results should beused in conjunction with other diagnostic information suchas ECG, clinical observations and information, and patientsymptoms to aid in the diagnosis of [place]. 02/11/2025 2:39 PM EDT 02/11/2025 2:51 PM EDT Generic External Data Provider LAB BLOOD ORDERAB LES Final Result Performing Organization Address City/[facility]/ZIP Co de Phone Number [facility] [address] [place] [phone] * hCG, Total, Quantitative (02/11/2025 2:39 PM EDT) Pathologist [facility] HCG Quantitative <2 mIU/mL [facility] Comment:Weeks post LMP Appro ximate hCG(Last Menstrual Period) Range (mIU/ml)3 - 4 weeks 9 - 1304 - 5 weeks 75 - 2,6005 - 6 weeks 850 - 20,8006 - 7 weeks 4000 - 100,2007 - 12 weeks 11,500 - 289,07173 - 16 weeks 18,300 - 137,73604 - 29 weeks (2nd trimester) 1,400 - 53,09811 - 41 weeks (3rd trimester) 940 - 60,000The Louis B- hCG assay is used for the early detection ofpregnancy; it cannot be used to diagnose any conditionunrelated to . If a B-hCG level is not supportedby the clinical evidence, results should be confirmed by analternative method (qualitative urine hCG, for example). 02/11/2025 2:39 PM EDT 02/11/2025 2:51 PM EDT us Generic External Data Provider LAB BLOOD ORDERAB LES Final Result Performing Organization Address City/[facility]/ZIP Co de Phone Number [facility] [address] [place] [phone] * Magnesium (02/11/2025 2:39 PM EDT) Pathologist [facility] Magnesium 2.3 1.6 - 2.6 mg/dL [facility] 02/11/2025 2:39 PM EDT 02/11/2025 2:51 PM EDT us Generic External Data Provider LAB BLOOD ORDERAB LES Final Result Performing Organization Address City/[facility]/ZIP Co de Phone Number [facility] [address] [place] [phone] [phone] * Basic Metabolic Panel (02/11/2025 2:39 PM EDT) Sodium 140 135 - 145 mmol/L [facility] Potassium 4.2 3.3 - 5.1 mmol/L [facility] Chloride 108 96 - 108 mmol/L [facility] Carbon Dioxide 24 22 - 29 mmol/L [facility] Anion Gap 12 12 - 20 [facility] Urea Nitrogen (BUN) 16 9 - 16 mg/dL [facility] Creatinine, Serum 0.77 0.5 - 1.4 mg/dL [facility] Creatinine Clr Calc Pharmacy 144.4 [facility] Comment:Provided height and weight: 172.72 cm,102.1 kg.eGFR (calculated from the MDRD study equation) and eCrCl(calculated from the Cockcroft-Gault equation) are based ondifferent parameters and may not yield comparable results.If eCrCl result is absurd, please check patient'sheight/weight. Estimated Glomerular Filt Rate >60 [facility] Comment:Chronic Kidney Disea se: Estimated GFR < 60 mL/min/1.80z6Gpaisv Kidney Disease: Estimated GFR < 15 mL/min/1.73m2 Glucose 88 60 - 115 mg/dL [facility] Calcium 9.0 8.4 - 10.2 mg/dL [facility] 02/11/2025 2:39 PM EDT 02/11/2025 2:51 PM EDT us Generic External Data Provider LAB BLOOD ORDERAB LES Final Result Performing Organization Address City/[facility]/ZIP Co de Phone Number [facility] [address] [place] [phone] * Hepatic Function Panel (02/11/2025 2:39 PM EDT) [facility] Bilirubin, Total 0.2 0.0 - 1.0 mg/dL [facility] Bilirubin, Direct <0.2 0.0 - 0.5 mg/dL [facility] Aspartate Amino Transferase 21 5 - 31 U/L [facility] Alanine Aminotransferase 24 0 - 31 U/L [facility] Total Protein 7.7 6.5 - 8.0 g/dL [facility] Albumin Level 4.5 3.5 - 5.0 g/dL [facility] Alkaline Phosphatase 70 39 - 117 U/L [facility] 02/11/2025 2:39 PM EDT 02/11/2025 2:51 PM EDT us Generic External Data Provider LAB BLOOD ORDERAB LES Final Result [facility] [address] [place] [phone] * (ABNORMAL) CBC auto differential (02/11/2025 2:39 PM EDT) [facility] White Blood Count 8.6 4.8 - 10.8 X10*3/uL [facility] Red Blood Count 4.75 4.20 - 5.50 X10*6/uL [facility] Hemoglobin 12.4 12.0 - 16.0 g/dl [facility] Hematocrit 38.5 37.0 - 47.0 % [facility] Mean Corpuscular Volume 81.1 80.0 - 98.0 fL [facility] Mean Corpuscular Hemoglobin 26.1(L) 27.0 - 33.0 pg [facility] Mean Corpuscular HGB Conc 32.2 31.0 - 35.0 g/dl [facility] Red Cell Distribution Width 13.9 11.0 - 16.0 % [facility] Platelet Count 383 160 - 400 X10*3/uL [facility] Mean Platelet Volume 9.4 9.4 - 12.3 fL [facility] Neutrophils Percent Auto 57.8 45 - 73 % [facility] Imm Gran Pct Auto 0.3 0.0 - 0.4 % [facility] Lymphocytes Percent Auto 26.9 20 - 40 % [facility] Monocytes Percent Auto 6.8 2 - 11 % [facility] Eosinophils Percent Auto 6.9(H) 0 - 4 % [facility] Basophils Percent Auto 1.3 0 - 2 % [facility] NRBC Pct Auto 0.0 0.0 - 0.2 /100WBC [facility] Neutrophils Absolute Auto 5.0 2.0 - 8.3 x10*3/uL [facility] Imm Gran Abs Auto 0.03 0.00 - 0.03 X10*3/uL [facility] Lymphocytes Absolute Auto 2.3 1.2 - 4.9 X10*3/uL [facility] Monocytes Absolute Auto 0.6 0.1 - 1.2 X10*3/uL [facility] Eosinophils Absolute Auto 0.6(H) 0.0 - 0.4 X10*3/uL [facility] Basophils Absolute Auto 0.1 0.0 - 0.2 X10*3/uL [facility] NRBC Abs Auto 0.000 0.0 - 0.012 X10*3/uL [facility] 02/11/2025 2:39 PM EDT 02/11/2025 2:51 PM EDT us Generic External Data Provider LAB BLOOD ORDERAB LES Final Result [facility] [address] [place] [phone] * XR Chest 2 Views (02/11/2025 1:54 PM EDT) Anatomical Region Laterality Modality Chest Radiographic Charlotte ging 02/11/2025 1:54 PM EDT Narrative 02/11/2025 2:59 PM EDT [address] [address] XRay Report Signed Patient: Radha Stearns MR#: [id number] 4 : 2005 Acct:[id number] Age/Sex: 20 / F ADM Date: 02/11/25 Loc: HO.ED Attending Dr: Ordering Physician: Ange Frank Date of Service: 02/11/25 Procedure(s): XR chest 2V Accession Number(s): [id number] cc: Ange Frank; [facility] EMERY WHEEL MOLDER EXAMINATION: XR CHEST CLINICAL INFORMATION: CP COMPARISON: November 09, 2024 TECHNIQUE: 2 views of the chest were obtained. FINDINGS: No consolidation, pleural effusion or pneumothorax. No hyperinflation. Cardiomediastinal silhouette size is normal. Osseous structures are grossly intact. Patient's large body habitus/obesity. XR/XR chest 2V IMPRESSION: No acute airspace disease. Electronically signed by: Trever Elise MD 02/11/2025 02:57 PM EDT Dictated By: Trever Bruno MD Signed By: <Electronically signed by Trever Lomeli MD in OV> 02/11/25 1457 DD/ 1354 TD/TT: 02/11/25 1451 French Binder: Procedure Note Donotuseinterpreter, Image - 02/11/[address] [address] XRay Report Signed Patient: Radha Stearns AMR#: [id number] 4 : 2005Acct:[id number] Age/Sex: 20 / FADM Date: 02/11/25 Loc: .ED Attending Dr: Ordering Physician: Ange Frank Date of Service: 02/11/25 Procedure(s): XR chest 2V Accession Number(s): [id number] cc: Ange Frank; [facility] EMERY WHEEL MOLDER EXAMINATION: XR CHEST CLINICAL INFORMATION: CP COMPARISON: November 09, 2024 TECHNIQUE: 2 views of the chest were obtained. FINDINGS: No consolidation, pleural effusion or pneumothorax. No hyperinflation. Cardiomediastinal silhouette size is normal. Osseous structures are grossly intact. Patient's large body habitus/obesity. XR/XR chest 2V IMPRESSION: No acute airspace disease. Electronically signed by: Trever Elise MD 02/11/2025 02:57 PM EDT RP Dictated By: Trever Bruno MD Signed By: <Electronically signed by Trever Lomeli MDin OV> 02/11/25 1457 DD/ 1354 TD/TT: 02/11/25 1451 French Binder: [facility] External Provider IMG XR PROCEDURES Final Result documented in this encounter Visit Diagnoses Not on filedocumented in this encounter Additional Health Concerns Assessment Noted Time PHQ-9 Depression Total Score: 0 10/08/19 11:19 AM EDT documented as of this encounter Care Teams Industrial Psychology Professor Relationship Specialty Start Date End Date Valerie Danielson FNP [address] [place] [phone] PCP - General Family Medicine 09/04/23 Barbie Slade Hotel SuperintendentLead Front Desk Agent 12/16/24 documented as of this encounter
--- OUTSIDE RECORDS SUMMARY | 2025-02-11 16:51 | XMS_ITS | Encounter Summary ---
Author Organization [employer] Address [address] [facility] [facility] [address] [place] [address] Care Team Providers Care Seismic Interpreter Name Role Phone DayapeteryuriKayley DO Primary Care Provider [phone] [facility] Primary Care Provider [phone] Encounter Details Date Type Department Care Team (Late Contact Info) Description 05/17/2022 Orders Only [facility] [address] [place], [place] [phone] Adelia Jalloh MD [address] [place] [address] [phone] Mild intermittent asthma, unspecified whether complicated (Primary [...] Department Care Team (Late Contact Info) Description 02/16/2025 8:30 AM EDT Office Visit [facility] ORTH[facility]ONT[facility] [address] [place] [address] [phone] 03/05/2025 1:15 PM EDT Office Visit [facility] MED[facility] [address] [place] [address] [phone] [facility], [facility] [address] [place] [address] documented as of this encounter Procedures Procedure [...] (Lucas) (08/10/2022 8:56 PM EST) IDNOW SERIAL# [id number] [facility] Influenza A Negative Negative [facility] Influenza B2 Negative Negative [facility] Influenza A B2 Note See Note [facility] Comment:The Lucas ID NOW In fluenza [...] PM EST 08/10/2022 9:04 PM EST us [facility] Exter nal Provider LAB MICROBIOLOGY - GENERAL ORDERABLES Final Result [facility] [address] [place] [address] [phone] * COVID-19 ID NOW (LUCAS) (08/10/2022 8:56 PM EST) IDNOW SERIAL# [id number] [facility] COVID-19 TEST Negative Negative [facility] COVID-19 NOTE See Note [facility] Comment: Results are for the identification of SARS-CoV2 RNA. TheSARS-CoV2 RNA is generally detectable in respiratory samplesduring the acute phase of infection. Positive results areindicative of the presence of SARS-CoV-2 RNA; clinicalcorrelation with patient history and other diagnosticinformation is necessary to determine patient infectionstatus. Positive results do not rule out bacterial infectionor co- infection with other viruses.Testing facilities within the [facility] and itsterritories are required to report all positive results [...] 8:56 PM EST 08/10/2022 9:04 PM EST [facility] Exter nal Provider LAB MOLECULAR DIAGNOSTICS ORDERABLES Final Result [facility] [address] [place] [address] [phone] * Magnesium (08/10/2022 8:56 PM EST) Magnesium 1.7 1.6 - 2.6 mg/dL [facility] 08/10/2022 8:56 PM EST 08/10/2022 9:04 PM EST us [facility] External Provider LAB BLO OD ORDERABLES Final Result [facility] [address] [place] [address] [phone] * (ABNORMAL) Comprehensive Metabolic Panel (08/10/2022 8:56 PM EST) Sodium 139 135 - 145 mmol/L [facility] Potassium 3.4 3.3 - 5.1 mmol/L [facility] Chloride 109(H) 96 - 108 mmol/L [facility] Carbon Dioxide 21(L) 22 - 29 mmol/L [facility] Anion Gap 12 12 - 20 [facility] Urea Nitrogen (BUN) 12 9 - 16 mg/dL [facility] Creatinine, Serum 0.77 0.5 - 1.4 mg/dL [facility] Creatinine Clr Calc Pharmacy TNP [facility] Comment:Cannot be calculated ; patient is less than 19 years old. Estimated Glomerular Filt Rate >60 [facility] Comment:NOTE: For -A merican individuals, multiply the result by 1.210.Chronic Kidney Disease: Estimated GFR < 60 mL/min/1.78x1Hwrqba Kidney Disease: Estimated GFR < 15 mL/min/1.73m2 Glucose 103 60 - 115 mg/dL [facility] Calcium 9.3 8.4 - 10.2 mg/dL [facility] Bilirubin, Total 0.4 0.0 - 1.0 mg/dL [facility] Aspartate Amino Transferase 17 5 - 31 U/L [facility] Alanine Aminotransferase 17 0 - 31 U/L [facility] Total Protein 7.4 6.5 - 8.0 g/dL [facility] Albumin Level 4.3 3.5 - 5.0 g/dL [facility] Alkaline Phosphatase 78 39 - 117 U/L [facility] 08/10/2022 8:56 PM EST 08/10/2022 9:04 PM EST us [facility] External Provider LAB BLO OD ORDERABLES Final Result [facility] [address] [place] [address] [phone] * (ABNORMAL) CBC auto differential (08/10/2022 8:56 PM EST) White Blood Count 11.1(H) 4.8 - 10.8 X10*3/uL [facility] Red Blood Count 4.99 4.20 - 5.50 X10*6/uL [facility] Hemoglobin 12.9 12.0 - 16.0 g/dl [facility] Hematocrit 38.9 37.0 - 47.0 % [facility] Mean Corpuscular Volume 78.0(L) 80.0 - 98.0 fL [facility] Mean Corpuscular Hemoglobin 25.9(L) 27.0 - 33.0 pg [facility] Mean Corpuscular HGB Conc 33.2 31.0 - 35.0 g/dl [facility] Red Cell Distribution Width 13.4 11.0 - 16.0 % [facility] Platelet Count 351 160 - 400 X10*3/uL [facility] Mean Platelet Volume 9.1(L) 9.4 - 12.3 fL [facility] Neutrophils Percent Auto 61.2 45 - 73 % [facility] Imm Gran Pct Auto 0.3 0.0 - 0.4 % [facility] Lymphocytes Percent Auto 24.3 20 - 40 % [facility] Monocytes Percent Auto 6.4 2 - 11 % [facility] Eosinophils Percent Auto 6.6(H) 0 - 4 % [facility] Basophils Percent Auto 1.2 0 - 2 % [facility] NRBC Pct Auto 0.0 0.0 - 0.2 /100WBC [facility] Neutrophils Absolute Auto 6.8 2.0 - 8.3 x10*3/uL [facility] Imm Gran Abs Auto 0.03 0.00 - 0.03 X10*3/uL [facility] Lymphocytes Absolute Auto 2.7 1.2 - 4.9 X10*3/uL [facility] Monocytes Absolute Auto 0.7 0.1 - 1.2 X10*3/uL [facility] Eosinophils Absolute Auto 0.7(H) 0.0 - 0.4 X10*3/uL [facility] Basophils Absolute Auto 0.1 0.0 - 0.2 X10*3/uL [facility] NRBC Abs Auto 0.000 0.0 - 0.012 X10*3/uL [facility] 08/10/2022 8:56 PM EST 08/10/2022 9:04 PM EST us [facility] External Provider LAB BLO OD ORDERABLES Final Result Performing Organization Address City/State/[facility] Co de Phone Number [facility] [address] [place] [address] [phone] documented in this encounter Visit Diagnoses Diagnosis Mild intermittent asthma, unspecified whether complicated- Primary documented in this encounter Care Teams Seismic Interpreter Relationship Specialty Start Date End Date Kayley Looney DO [address] [place] [address] PCP - General Pediatrics 02/11/13 09/03/23 [facility] [address] [place] [address] PCP - General Family Medicine 09/04/23 Barbie Slade High Density Press LaborerAlberene Stone Setter 12/16/24 documented as of this encounter
--- OUTSIDE RECORDS SUMMARY | 2025-02-11 16:51 | XMS_ITS | Encounter Summary ---
Author Organization [employer] Address [address] [facility] [address] [place] [address] Care Team Providers Care Patent Examiner Name Role Phone Kayley Looney DO Primary Care Provider [phone] [facility] Primary Care Provider [phone] Reason for Visit * Reason Comments Med Refill Encounter Details Date Type Department Care Team (Late st Contact Info) Description 08/16/2023 Refill [facility] [address] [place] [address] Kayley Looney DO [address] [place], [place] [phone] Cough in adult; Moderate asthma with acute [...] Description 02/16/2025 8:30 AM EDT Office Visit [facility]TH[facility]ONT[facility] [address], [place] [phone] 03/05/2025 1:15 PM EDT Office Visit [facility] [address] [place], [place] [phone] [facility] [address] [place] [phone] documented as of this encounter Visit Diagnoses Diagnosis Cough in adult Moderate asthma with acute exacerbation, unspecified whether persistent documented in this encounter Care Teams Patent Examiner Relationship Specialty Start Date End Date Kayley Looney DO [address] [place] [phone] PCP - General Pediatrics 02/11/13 09/03/23 [facility] [address] [place] [phone] PCP - General Family Medicine 09/04/23 Barbie Slade Communication SpecialistRoad Builder 12/16/24 documented as of this encounter
--- OUTSIDE RECORDS SUMMARY | 2025-02-11 16:51 | XMS_ITS | Clinical Summary ---
Author Organization [employer] Address [address] [facility] [address] [place] [address] Care Team Providers Care Grid Maker Name Role Phone Valerie Danielson TV PRODUCTION ASSISTANT Primary Care Provider [phone] Allergies No known active allergies Medications fluticasone (Flovent) 110 MCG/ACT inhaler 2 inh via spacer 2 times per day every day 08/24/19 22 Active Sodium Fluoride 1.1 % gel [place] with a pea size amount every night. [...] mouth in the morning. 11/15/19 23 Active Sodium Fluoride 1.1 % cream [place] with a pea size amount of toothpaste [...] allergy symptoms 90 tablet 03/27/20 23 Active Additional Information Patient not taking.Reported on 12/22/2024 Blood Pressure kitIndications: Elevated blood pressure reading Use as directed to check blood pressure once daily 1 kit 03/27/20 24 Active FLUoxetine (PROzac) 20 MG capsule [...] replace cap. 16 g 2 11/13/19 24 Active triamcinolone (Kenalog) 0.1 % ointmentIndicat ions:Flexural eczema Mix with 1 lb jar of Cerave healing ointment and apply topically to body twice a day 80 g 2 05/11/20 24 Active albuterol (2.5 MG/3ML) 0.083% nebulizer solutionIndicat [...] affected ear(s) 4 times daily. 10 mL 09/02/19 25 Active metFORMIN XR (Glucophage-XR) 500 MG [...] split. 30 tablet 10/08/19 25 2025 Active albuterol (Ventolin HFA) 108 (90 Base) MCG/ACT inhalerIndicati ons:Moderate asthma with acute exacerbation, unspecified whether persistent INHALE 2 PUFFS BY MOUTH EVERY 4 TO 6 HOURS NEEDED FOR COUGH, WHEEZING, OR SHORTNESS OF BREATH ADMINISTER WITH SPACER 18 g 3 11/03/19 25 Active olmesartan (Benicar) 5 MG tabletIndicatio ns:Primary hypertension Take 1 tablet (5 mg) by mouth Once per day. 30 tablet 11 01/13/20 25 2025 Active levonorgestrel- ethinyl estradiol (Aviane, Alesse, Lessina) 0.1-20 MG-MCG tabletIndicatio ns:PCOS (polycystic ovarian syndrome),Irreg ular menses 1 tab by oral route daily 28 tablet 12 01/13/20 25 Active fluconazole (Diflucan) 150 MG tabletIndicatio ns:Vaginal yeast infection Take 1 tablet by oral route. Repeat in 72 hours. 2 tablet 01/14/20 25 Active cholecalciferol (Vitamin D-3) 25 MCG tabletIndicatio ns:Vitamin D deficiency TAKE 1 TABLET BY MOUTH EVERY DAY IN THE MORNING 90 tablet 3 01/26/20 25 Active montelukast (Singulair) 10 MG tablet TAKE 1 TABLET BY MOUTH EVERY EVENING 90 tablet 3 01/26/20 25 Active cholecalciferol (Vitamin D3) 25 MCG (1000 UT) tabletIndicatio ns:Vitamin D deficiency Take 1 tablet (25 mcg) by mouth Once per day. 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-->hydroxyzine PRN, fluoxetine, guainfaceine for ?ADHD Eczema 03/10/2012 Learning difficulty 03/10/2012 Body mass index, pediatric, greater than or equal to 95th percentile for age 0903/10/2012 Resolved Problems Problem Noted Date Diagnosed Date Resolved Date Depressive disorder 02/08/2016 10/08/19 24 Encounters Date Type Department Care Team Description 02/11/2025 Orders Only GENERIC EXTERNAL DATA DEPARTMENT Provider, Generic External Data 02/01/2025 Telephone [facility] [address] [place] [phone] Valerie Danielson FNP Durable Medical Equipment (DME Request: CPAP) 01/29/2025 Telephone [facility] [address] [place] [phone] Valerie Danielson FNP sleep study results 01/24/2025 Refill [facility] [address] [place] [address] Alana Castillo MD Vitamin D deficiency 01/24/2025 Refill [facility] PEDIATRICS [address] [place] [address] Valerie Danielson FNP 01/13/2025 Orders Only [facility] [address] [place] [phone] Valerie Danielson FNP Vaginal yeast infection (Primary Dx) 01/13/2025 Results Follow-Up [facility] [address] [place] [phone] Valerie Danielson FNP Bacterial Vaginosis Panel 01/12/2025 3:30 PM EDT Office Visit [facility] [address] [place] [phone] Valerie Danielson FNP Primary hypertension (Primary Dx); Vaginal discharge; PCOS (polycystic ovarian syndrome); Irregular menses 01/12/2025 Travel 01/11/2025 Telephone [facility] [address] [place] [phone] Valerie Danielson FNP Chart Prep 01/06/2025 Patient Outreach [address] [address] Valerie Danielson FNP Pre-visit Planning (SDOH screening unable to be completed) 12/22/2024 2:00 PM EDT Office Visit [facility] ORTHODONTICS [address] [place] [address] Beatriz Mckeon, DMD 12/16/2024 Telephone [facility] [address] [place] [address] Valerie Danielson FNP Care Coordination (ICP CP ) 12/08/[address] [address] Valerie Danielson FNP Appointment Request 12/07/[address] [address] Valerie Danielson FNP Returning Call 12/07/2024 Travel 12/04/[address] [address] Valerie Danielson FNP chart prep from Last 3 Months Immunizations Immunization Administration Dates Next Due DTaP 09/15/2008,07/10/2005,2004 DTaP / Hep B / IPV 2004,2004, 004 HPV 9-Valent 05/07/2016,02/04/2015 Hep A, ped/adol, 2 dose 05/07/2016,02/04/2015 Hep B, Adolescent or Pediatric 2004,2003 Hib (HbOC) 07/10/2005, 5,2004,05/15 IPV 09/15/2008,2004 Influenza injectable quadriv [...] Sign Reading Time Taken Comments Blood Pressure 142/90 01/12/2025 2:59 PM EDT Pulse 90 01/12/2025 2:59 PM EDT Temperature 37.3 C (99.2 F) 01/12/2025 2:59 PM EDT Respiratory Rate 20 01/12/2025 2:59 PM EDT Oxygen Saturation 98% 09/15/2024 2:58 PM EDT Inhaled Oxygen Concentration - - Weight 101 kg (223 lb 9.6 oz) 01/12/2025 2:59 PM EDT Height 167.6 cm (5' 6 ) 01/12/2025 2:59 PM EDT Body Mass Index 36.09 01/12/2025 2:59 PM EDT Plan of Treatment Upcoming Encounters Date Type Department Care Team (Late st Contact Info) Description 02/16/2025 8:30 AM EDT Office Visit [facility] [address] [place] [address] 03/05/2025 1:15 PM EDT Office Visit [facility] [address] [place] [address] [place], Valerie, [facility] [address] [place] [address] Health Maintenance Due Date Last Done Comments Chlamydia and Gonorrhea Screening 2004 Dental X-Ray: Full Mouth 2004 HIV Screening 2004 Disability Screening 2004 Alcohol/Substance Use Screening 2016 Family Planning (PISQ) 01/26/2019 Meningococcal B Vaccine (1 of 2 - Standard) 2020 Hepatitis C Screening 01/26/2022 Pneumococcal Vaccine: Pediatrics (0 to 5 Years) and At-Risk Patients (6 to 49) Years (1 of 2 - PCV) 01/26/2023 07/10/2005, 2004, 2004, Additional history exists Dental Oral Exam 05/31/2023 11/28/2022 Dental Prophylaxis 05/31/2023 11/28/2022 Dental X-Ray: Bitewings 11/30/2023 11/28/2022 COVID-19 Vaccine ( season) 2024 09/11/2023, 11/13/2020, 10/22/2020 SDOH Screening 09/10/2024 09/11/2023 Pap Smear 01/26/2025 DTaP/Tdap/Td Vaccines (7 - Td or Tdap) 02/04/2025 02/04/2015, 09/15/2008, 07/10/2005, Additional history exists Influenza Vaccine (#1) 2025 , 08/07/2019, 05/29/2018, Additional history exists Depression Screening 10/07/2025 10/07/2024, 10/08/19 25 Tobacco Screening 01/19/2026 01/19/2025 Lipid Panel 09/10/2028 09/11/2023, 06/0 01/2023, 02/27/2021 [...] TROPONIN I Routine 02/11/2025 2:39 PM EDT HCG, TOTAL, QN Routine 02/11/2025 2:39 PM EDT MAGNESIUM Routine 02/11/2025 2:39 PM EDT BASIC METABOLIC PANEL Routine 02/11/2025 2:39 PM EDT HEPATIC FUNCTION PANEL Routine 02/11/2025 2:39 PM EDT CBC WITH AUTO DIFFERENTIAL Routine 02/11/2025 2:39 PM EDT XR CHEST 2 VIEWS Routine 02/11/2025 1:54 PM EDT BACTERIAL VAGINOSIS PANEL Routine 01/12/2025 3:12 PM EDT Vaginal discharge NO CHARGE, PERIODIC ORTHODONTIC TREATMENT VISITS Routine 12/22/2024 2:00 PM EDT LIPID PANEL, STANDARD Routine 09/11/2023 3:53 PM EDT Elevated blood pressure reading PROPHYLAXIS - ADULT Routine 11/28/2022 1 1:00 AM EDT BITEWINGS - 4 RADIOGRAPHIC IMAGES Routine 11/28/2022 11:00 AM EDT PERIODIC ORAL EVALUATION - ESTABLISHED PATIENT Routine 11/28/2022 11:00 AM EDT from Last 3 Months or Most Recently Relevant to Health Maintenance Results * High Sensitivity Troponin I (02/11/2025 2:39 PM EDT) TROPONIN I HIGH SENSITIVITY <2.7 <3.5 - 17.0 ng/L [facility] Comment:The Louis high sens itivity Troponin-I results should beused in conjunction with other diagnostic information suchas ECG, clinical observations and information, and patientsymptoms to aid in the diagnosis of [place]. 02/11/2025 2:39 PM EDT 02/11/2025 2:51 PM EDT us Generic External Data Provider LAB BLOOD ORDERAB LES Final Result [facility] [address] [place] [address] [phone] * (ABNORMAL) CBC auto differential (02/11/2025 2:39 PM EDT) White Blood Count 8.6 4.8 - 10.8 X10*3/uL [facility] Red Blood Count 4.75 4.20 - 5.50 X10*6/uL [facility] Hemoglobin 12.4 12.0 - 16.0 g/dl [facility] Hematocrit 38.5 37.0 - 47.0 % [facility] Mean Corpuscular Volume 81.1 80.0 - 98.0 fL [facility] Mean Corpuscular Hemoglobin 26.1(L) 27.0 - 33.0 pg [facility] Mean Corpuscular HGB Conc 32.2 31.0 - 35.0 g/dl [facility] Red Cell Distribution Width 13.9 11.0 - 16.0 % [facility] Platelet Count 383 160 - 400 X10*3/uL [facility] Mean Platelet Volume 9.4 9.4 - 12.3 fL [facility] Neutrophils Percent Auto 57.8 45 - 73 % [facility] Imm Gran Pct Auto 0.3 0.0 - 0.4 % [facility] Lymphocytes Percent Auto 26.9 20 - 40 % [facility] Monocytes Percent Auto 6.8 2 - 11 % [facility] Eosinophils Percent Auto 6.9(H) 0 - 4 % [facility] Basophils Percent Auto 1.3 0 - 2 % [facility] NRBC Pct Auto 0.0 0.0 - 0.2 /100WBC [facility] Neutrophils Absolute Auto 5.0 2.0 - 8.3 x10*3/uL [facility] Imm Gran Abs Auto 0.03 0.00 - 0.03 X10*3/uL [facility] Lymphocytes Absolute Auto 2.3 1.2 - 4.9 X10*3/uL [facility] Monocytes Absolute Auto 0.6 0.1 - 1.2 X10*3/uL [facility] Eosinophils Absolute Auto 0.6(H) 0.0 - 0.4 X10*3/uL [facility] Basophils Absolute Auto 0.1 0.0 - 0.2 X10*3/uL [facility] NRBC Abs Auto 0.000 0.0 - 0.012 X10*3/uL [facility] 02/11/2025 2:39 PM EDT 02/11/2025 2:51 PM EDT us Generic External Data Provider LAB BLOOD ORDERAB LES Final Result Performing Organization Address City/State/[facility] Co de Phone Number [facility] [address] [place] [phone] * hCG, Total, Quantitative (02/11/2025 2:39 PM EDT) HCG Quantitative <2 mIU/mL [facility] Comment:Weeks post LMP Appro ximate hCG(Last Menstrual Period) Range (mIU/ml)3 - 4 weeks 9 - 1304 - 5 weeks 75 - 2,6005 - 6 weeks 850 - 20,8006 - 7 weeks 4000 - 100,2007 - 12 weeks 11,500 - 289,54950 - 16 weeks 18,300 - 137,59491 - 29 weeks (2nd trimester) 1,400 - 53,04438 - 41 weeks (3rd trimester) 940 - [...] ORDERAB LES Final Result Performing Organization Address [facility] Co de Phone Number [facility] [address] [place] [phone] * Magnesium (02/11/2025 2:39 PM EDT) Magnesium 2.3 1.6 - 2.6 mg/dL [facility] 02/11/2025 2:39 PM EDT 02/11/2025 2:51 PM EDT us Generic External Data Provider LAB BLOOD ORDERAB LES Final Result Performing Organization Address [facility] Phone Number [facility] [address] [place] [phone] * Hepatic Function Panel (02/11/2025 2:39 PM EDT) Bilirubin, Total 0.2 0.0 - 1.0 mg/dL [facility] Bilirubin, Direct <0.2 0.0 - 0.5 mg/dL [facility] Aspartate Amino Transferase 21 5 - 31 U/L [facility] Alanine Aminotransferase 24 0 - 31 U/L [facility] Total Protein 7.7 6.5 - 8.0 g/dL [facility] Albumin Level 4.5 3.5 - 5.0 g/dL [facility] Alkaline Phosphatase 70 39 - 117 U/L [facility] 02/11/2025 2:39 PM EDT 02/11/2025 2:51 PM EDT Generic External Data Provider LAB BLOOD ORDERAB LES Final Result Performing Organization Address [facility] Co de Phone Number [facility] [address] [place] [phone] * Basic Metabolic Panel (02/11/2025 2:39 PM EDT) Sodium 140 135 - 145 mmol/L [facility] Potassium 4.2 3.3 - 5.1 mmol/L [facility] Chloride 108 96 - 108 mmol/L [facility] Carbon Dioxide 24 22 - 29 mmol/L [facility] Anion Gap 12 12 - 20 [facility] Urea Nitrogen (BUN) 16 9 - 16 mg/dL [facility] Creatinine, Serum 0.77 0.5 - 1.4 mg/dL [facility] Creatinine Clr Calc Pharmacy 144.4 [facility] Comment:Provided height and weight: 172.72 cm,102.1 kg.eGFR (calculated from the MDRD study equation) and eCrCl(calculated from the Cockcroft-Gault equation) are based ondifferent parameters and may not yield comparable results.If eCrCl result is absurd, please check patient'sheight/weight. Estimated Glomerular Filt Rate >60 [facility] Comment:Chronic Kidney Disea se: Estimated GFR < 60 mL/min/1.47x8Ixgbjl Kidney Disease: Estimated GFR < 15 mL/min/1.73m2 Glucose 88 60 - 115 mg/dL [facility] Calcium 9.0 8.4 - 10.2 mg/dL [facility] 02/11/2025 2:39 PM EDT 02/11/2025 2:51 PM EDT us Generic External Data Provider LAB BLOOD ORDERAB LES Final Result [facility] [address] [place] [phone] * XR Chest 2 Views (02/11/2025 1:54 PM EDT) Anatomical Region Laterality Modality Chest Radiographic Charlotte ging 02/11/2025 1:54 PM EDT Narrative 02/11/2025 2:59 PM EDT [address] [address] XRay Report Signed Patient: Radha Stearns MR#: [id number] 4 : 2005 Acct:[id number] Age/Sex: 20 / F ADM Date: 02/11/25 Loc: HO.ED Attending Dr: Ordering Physician: Ange Frank Date of Service: 02/11/25 Procedure(s): XR chest 2V Accession Number(s): [id number] cc: Ange Frank; [facility] TV PRODUCTION ASSISTANT EXAMINATION: XR CHEST CLINICAL INFORMATION: CP COMPARISON: [...] 02/11/25 1457 DD/ 1354 TD/TT: 02/11/25 1451 Refrigerating Machine Operator: Procedure Note Donotuseinterpreter, Image - 02/11/2025 [place] [address] XRay Report Signed Patient: Radha Stearns AMR#: [id number] 4 : 2005Acct:[id number] Age/Sex: 20 / FADM Date: 02/11/25 Loc: HO.ED Attending Dr: Ordering Physician: Ange Frank Date of Service: 02/11/25 Procedure(s): XR chest 2V Accession Number(s): [id number] cc: Ange Frank; [facility] TV PRODUCTION ASSISTANT EXAMINATION: XR CHEST CLINICAL INFORMATION: CP COMPARISON: [...] 02/11/25 1457 DD/ 1354 TD/TT: 02/11/25 1451 Refrigerating Machine Operator: [facility] External Provider IMG XR PROCEDURES Final Result * (ABNORMAL) Bacterial Vaginosis Panel (01/12/2025 3:12 PM EDT) TRICHOMONAS VAGINALIS DETECTION BY PCR NOT DETECTED Not Detect [facility] BACTERIAL VAGINOSIS DETECTION BY PCR NEGATIVE Negative [facility] Comment:The BV organism targ ets of the Xpert Xpress MVP test can becommensal in women; Xpert Xpress MVP positive results forbacterial vaginosis should be considered in conjunction withother clinical and patient information to determine thedisease status. Organisms that are not detected by the XpertXpress MVP test have also been reported to be associatedwith BV and aerobic vaginitis.The Xpert Xpress MVP test performance has not been evaluatedin patients under the age of 14. DIVINA GROUP DETECTION BY PCR DETECTED(A) Not Detect [facility] Divina glab krusei PCR NOT DETECTED Not Detect [facility] Swab Vaginal structure / Unknown 01/12/2025 3:12 PM EDT 01/12/2025 6:11 PM EDT [facility] MICROBIOLOGY - GENERAL OR DERABLES Final Result [facility] [address] [place] [phone] * (ABNORMAL) Lipid Panel, Standard (09/11/2023 3:53 PM EDT) Triglycerides 247(H) <150 mg/dL [facility] Comment:Desirable Triglyceri de: less than 90 mg/dLBorderline High Triglyceride: 90-129 mg/dLHigh Triglyceride: greater than 130 mg/dL Cholesterol 154 <200 mg/dL [facility] Comment:Desirable Cholestero l: less than 170 mg/dLBorderline High Cholesterol: 170-199 mg/dLHigh Cholesterol: greater than 200 mg/dL LDL Cholesterol Calculated 71 <100 mg/dL [facility] Comment:Desirable LDL: less than 110 mg/dLBorderline LDL: 110-129 mg/dLHigh LDL: greater than or equal to 130 mg/dL HDL Cholesterol 34(L) >40 mg/dL [facility] Comment:Desirable HDL: great er than 45 mg/dLBorderline HDL: 40-45 mg/dLLow HDL: less than 40 mg/dL Note: This HDL assay may give artificially low results in patients with liver disease. Blood Venous blood specimen / Unknown 09/11/2023 3:53 PM EDT 09/11/2023 5:18 PM EDT [facility] TV PRODUCTION ASSISTANT LAB BLOOD ORDERABLES Final Re sult [facility] [address] [place] [phone] from Last 3 Months or Most Recently Relevant to Health Maintenance Insurance [facility] [address] C3 [place] STAND CHILD Care Teams Grid Maker Relationship Specialty Start Date End Date Valerie Danielson FNP [address] [place] [phone] PCP - General Family Medicine 09/04/23 Barbie Slade Supervisor Melt HouseTennis Coach 12/16/24
--- OUTSIDE RECORDS SUMMARY | 2025-02-11 16:51 | XMS_ITS | Encounter Summary ---
Author Organization [employer] Address [address] [facility] 7t [place] [address] Care Team Providers Care Wind [employer] Electrical Systems Designer Name Role Phone DilciaKayley alaniz DO Primary Care Provider [phone] [facility] Primary Care Provider [phone] Reason for Visit * Reason Comments Med Refill Encounter Details Date Type Department Care Team (Late st Contact Info) Description 05/20/2023 Refill [facility] [address] [place], [place] [phone] Adelia Jalloh MD [address] [place], [place] [phone] Cough in adult; Moderate asthma with acute [...] 02/16/2025 8:30 AM EDT Office Visit [facility] [address] [place], [place] [phone] 03/05/2025 1:15 PM EDT Office Visit [facility] [address] [place], [place] [phone] [facility] [address] [place] [address] documented as of this encounter Visit Diagnoses Diagnosis Cough in adult Moderate asthma with acute exacerbation, unspecified whether persistent documented in this encounter Care Teams [employer] Electrical Systems Designer Relationship Specialty Start Date End Date Kayley Looney DO [address] [place] [address] PCP - General Pediatrics 02/11/13 09/03/23 [facility] [address] [place] [address] PCP - General Family Medicine 09/04/23 Barbie Slade Repeat ChiefFiller Mixer 12/16/24 documented as of this encounter
--- OUTSIDE RECORDS SUMMARY | 2025-02-11 16:51 | XMS_ITS | Encounter Summary ---
Author Organization [employer] Address [address] [facility] 7t [place] [address] Care Team Providers Care Hydroelectric Station Chief Name Role Phone Philippi [facility] Primary Care Provider [phone] Reason for Visit * Reason Comments Med Refill Encounter Details Date Type Department Care Team ([facility] st Contact Info) Description 10/31/2024 Refill [facility] [address] [place], [place] [phone] Philippi [facility] [address] [place], [place] [phone] Moderate asthma with acute exacerbation, unspecified whether [...] Description 02/16/2025 8:30 AM EDT Office Visit [facility] [address] [place] [address] 03/05/2025 1:15 PM EDT Office Visit [facility] [address] [place] [phone] PhilippiValerie [facility] [address] [place] [address] documented as of this encounter Visit Diagnoses Diagnosis Moderate asthma with acute exacerbation, unspecified whether persistent documented in this encounter Additional Health Concerns Assessment Noted Time PHQ-9 Depression Total Score: 0 10/08/19 11:19 AM EDT documented as of this encounter Care Teams Hydroelectric Station Chief Relationship Specialty Start Date End Date Valerie Danielson FNP [address] [place] [phone] PCP - General Family Medicine 09/04/23 Barbie Slade LinemarkerFish Cake Maker 12/16/24 documented as of this encounter
--- OUTSIDE RECORDS SUMMARY | 2025-02-11 16:51 | XMS_ITS | Encounter Summary ---
Author Organization [email or web address] Address [address] [facility] [address] [place] [address] Care Team Providers Care Agricultural Inspector Name Role Phone AayushKayley Primary Care Provider [phone] [facility] Primary Care Provider [phone] Encounter Details Date Type Department Care Team (Late st Contact Info) Description 05/09/2022 Abstract [facility] [address] [place] [address] Dental, Provider, DDS Social History Tobacco Use [...] Description 02/16/2025 8:30 AM EDT Office Visit [facility] [address] [place] [address] 03/05/2025 1:15 PM EDT Office Visit [facility] [address] [place] [address] [facility] [address] [place] [address] documented as of this encounter Procedures Procedure [...] on filedocumented in this encounter Care Teams Agricultural Inspector Relationship Specialty Start Date End Date Kayley Looney DO [address] [place] [address] PCP - General Pediatrics 02/11/13 09/03/23 KeelingValerie FNP [address] [place] [address] PCP - General Family Medicine 09/04/23 Barbie Slade Community Planning TechnicianHand Miter Operator 12/16/24 documented as of this encounter
[2025-02-11 16:54] VITALS: BP 143/93; PULSE 80; RESP 14; TEMP 36.8; O2SAT 97
--- NOTE | 2025-02-11 17:11 | PC.NURSE ---
Patient is a 25-jwnp-jud-female, with a hx of PCOS, HTN, asthma, who presents to the ER with complaints of chest pain since last night. Reporting stabbing right anterior chest pain since last night. Reports that she was laying down and the pain started. Pain is constant and worsening with movement and a deep breath. 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 Patient alert and oriented. Lungs clear bilat. Respirations even and non-labored. Abdomen soft, non-tender with positive bowel sounds. Positive pedal pulses with no edema.
[2025-02-11 18:23] VITALS: BP 141/89; PULSE 82; RESP 13; TEMP 36.7; O2SAT 97
[2025-02-11 18:44] LABS: D Dimer High Sensitivity < 150 NG/ML
[2025-02-11 19:23] VITALS: BP 141/89; PULSE 82; RESP 13; TEMP 36.7; O2SAT 97
== END 2025-02-11 19:32 | disposition home or self-care (01) ==
PROVIDERS: Physician Assistant; Physician Assistant Medical; Emergency Provider Emergency Medicine; PCP Registered Nurse
DX: R07.89 Other chest pain (principal); I10 Essential (primary) hypertension; J45.909 Unspecified asthma, uncomplicated; Z79.899 Other long term (current) drug therapy
CPT/HCPCS: 36415; 71046; 80048; 80076; 83735; 84484; 84702; 85025; 85379; 93005; 99283; 99284

== ENCOUNTER → 2025-02-11 13:42 | Outpatient (BNV) | payer MEDICAID, SELFPAY | PROVIDERS: Emergency Provider Emergency Medicine; PCP Registered Nurse; Visit Provider Internal Medicine | DX: R07.9 Chest pain, unspecified (principal) | CPT/HCPCS: 93010 ==

== ENCOUNTER → 2025-02-11 14:22 | Outpatient (BNV) | payer MEDICAID, SELFPAY | PROVIDERS: PCP Registered Nurse; Visit Provider Radiology Diagnostic Radiology | DX: R07.9 Chest pain, unspecified (principal) | CPT/HCPCS: 71046 ==

== ENCOUNTER 2025-02-16 04:33 | Emergency (ER) | payer MEDICAID, SELFPAY ==
[2025-02-16 04:42] VITALS: BP 100/63; PULSE 107; PULSE 114; RESP 20; TEMP 36.9; O2SAT 91; O2SAT 96; BMI 39.1
[2025-02-16 04:46] VITALS: BP 138/85; PULSE 114; RESP 20; TEMP 36.9; O2SAT 96
[2025-02-16] MEDS: Albuterol Sulfate 5 MG, Albuterol/Iprat 2.5/0.5MG 3 ML 3 ML INHALE (04:51)
[2025-02-16 04:54] VITALS: PULSE 106; RESP 22; O2SAT 94
--- OUTSIDE RECORDS SUMMARY | 2025-02-16 05:13 | XMS_ITS | Clinical Summary ---
Author Organization [employer] Address [address] [facility] 7[address] [place] [address] Care Team Providers Care Electric Motor Repairer Name Role Phone Valerie Danielson TURF AND GROUNDS SUPERVISOR Primary Care Provider [phone] Allergies No known active allergies Medications fluticasone (Flovent) 110 MCG/ACT inhaler 2 inh via spacer 2 times per day every day 08/24/19 22 Active Sodium Fluoride 1.1 % gel [place] with a pea size amount every night. 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 + panic attacks-->hydroxyzine PRN, fluoxetine, guainfaceine for ?ADHD Eczema 03/10/2012 Learning difficulty 03/10/2012 Body mass index, pediatric, greater than or equal to 95th percentile for age 0903/10/2012 Resolved Problems Problem Noted Date Diagnosed Date Resolved Date Depressive disorder 02/08/2016 10/08/19 24 Encounters Date Type Department Care Team Description 02/11/2025 Orders Only GENERIC EXTERNAL DATA DEPARTMENT Provider, Generic External Data 02/01/2025 Telephone [facility] [address] [place] [phone] Valerie Danielson FNP Durable Medical Equipment (DME Request: CPAP) 01/29/2025 Telephone [facility] [address] [place] [phone] Valerie Danielson FNP sleep study results 01/24/2025 Refill [facility] [address] [place] [address] Alana Castillo MD Vitamin D deficiency 01/24/2025 Refill [facility] [address] [place] [address] Valerie Danielson FNP 01/13/2025 Orders Only [facility] [address] [place] [phone] Valerie Danielson FNP Vaginal yeast infection (Primary Dx) 01/13/2025 Results Follow-Up [facility] [address] [place] [phone] Valerie Danielson FNP Bacterial Vaginosis Panel 01/12/2025 3:30 PM EDT Office Visit [facility] [address] [place] [address] Valerie Danielson FNP Primary hypertension (Primary Dx); Vaginal discharge; PCOS (polycystic ovarian syndrome); Irregular menses 01/12/2025 Travel 01/11/2025 Telephone [facility] [address] [place] [phone] Valerie Danielson FNP Chart Prep 01/06/2025 Patient Outreach [address] [address] Valerie Danielson FNP Pre-visit Planning (SDOH screening unable to be completed) 12/22/2024 2:00 PM EDT Office Visit [facility] [address] [place] [address] Beatriz Mckeon, DMD 12/16/2024 Telephone [facility] [address] [place] [address] Valerie Danielson FNP Care Coordination (ICP CP ) 12/08/[address] [address] Valerie Danielson FNP Appointment Request 12/07/[address] [address] Valerie Danielson FNP Returning Call 12/07/2024 Travel 12/04/[address] [address] Valerie Danielson FNP chart prep from Last [...] Description 02/16/2025 8:30 AM EDT Office Visit [facility] [address] [place] [address] 03/05/2025 1:15 PM EDT Office Visit [facility] [address] [place] [address] Hayden, Valerie, [facility] [address] [place] [address] Health Maintenance Due Date Last Done Comments [...] Procedure Name Priority Date/Time Associated Diagnosis Comments D DIMER HIGH SENSITIVITY Routine 02/11/2025 6:26 PM EDT HIGH SENSITIVITY TROPONIN I Routine 02/11/2025 2:39 [...] Recently Relevant to Health Maintenance Results * D Dimer High Sensitivity (02/11/2025 6:26 PM EDT) D Dimer High Sensitivity <150 NG/ML [facility] Comment:D-DIMER HS REFERENCE RANGENote: Our assay reports D-Dimer Units (D- DU).The cut-off value for venous thromboembolic (VTE) disease is230 ng/mL. This value has a very high negative predictivevalue when the patient has a low to moderate clinicalprobability of VTE.The upper limit of normal is 243 ng/mL. 02/11/2025 6:26 PM EDT 02/11/2025 6:29 PM EDT Generic External Data Provider LAB BLOOD ORDERAB LES Final Result Performing Organization Address [facility] Phone Number [facility] [address] [place] [phone] * High Sensitivity Troponin I (02/11/2025 2:39 PM EDT) [facility] TROPONIN I HIGH SENSITIVITY <2.7 <3.5 - 17.0 ng/L [facility] Comment:The Louis high sens itivity Troponin-I results should beused in conjunction with other diagnostic information suchas ECG, clinical observations and information, and patientsymptoms to aid in the diagnosis of ID. 02/11/2025 2:39 PM EDT 02/11/2025 2:51 PM EDT Generic External Data Provider LAB BLOOD ORDERAB LES Final Result Performing Organization Address [facility] Number [facility] [address] [place] [phone] * (ABNORMAL) CBC auto differential (02/11/2025 2:39 PM EDT) [facility] White Blood Count 8.6 4.8 - 10.8 X10*3/uL [facility] Red Blood Count 4.75 4.20 - 5.50 X10*6/uL [facility] Hemoglobin 12.4 12.0 - 16.0 g/dl [facility] Hematocrit 38.5 37.0 - 47.0 % [facility] Mean Corpuscular Volume 81.1 80.0 - 98.0 fL [facility] Mean Corpuscular Hemoglobin 26.1(L) 27.0 - 33.0 pg [facility] Mean Corpuscular HGB Conc 32.2 31.0 - 35.0 g/dl [facility] Red Cell Distribution Width 13.9 11.0 - 16.0 % [facility] Platelet Count 383 160 - 400 X10*3/uL [facility] Mean Platelet Volume 9.4 9.4 - 12.3 fL [facility] Neutrophils Percent Auto 57.8 45 - 73 % [facility] Imm Gran Pct Auto 0.3 0.0 - 0.4 % [facility] Lymphocytes Percent Auto 26.9 20 - 40 % [facility] Monocytes Percent Auto 6.8 2 - 11 % [facility] Eosinophils Percent Auto 6.9(H) 0 - 4 % [facility] Basophils Percent Auto 1.3 0 - 2 % [facility] NRBC Pct Auto 0.0 0.0 - 0.2 /100WBC [facility] Neutrophils Absolute Auto 5.0 2.0 - 8.3 x10*3/uL [facility] Imm Gran Abs Auto 0.03 0.00 - 0.03 X10*3/uL [facility] Lymphocytes Absolute Auto 2.3 1.2 - 4.9 X10*3/uL [facility] Monocytes Absolute Auto 0.6 0.1 - 1.2 X10*3/uL [facility] Eosinophils Absolute Auto 0.6(H) 0.0 - 0.4 X10*3/uL [facility] Basophils Absolute Auto 0.1 0.0 - 0.2 X10*3/uL [facility] NRBC Abs Auto 0.000 0.0 - 0.012 X10*3/uL [facility] 02/11/2025 2:39 PM EDT 02/11/2025 2:51 PM EDT us Generic External Data Provider LAB BLOOD ORDERAB LES Final Result [facility] [address] [place] [phone] * hCG, Total, Quantitative (02/11/2025 2:39 PM EDT) HCG Quantitative <2 mIU/mL [facility] Comment:Weeks post LMP Appro ximate hCG(Last Menstrual Period) Range (mIU/ml)3 - 4 weeks 9 - 1304 - 5 weeks 75 - 2,6005 - 6 weeks 850 - 20,8006 - 7 weeks 4000 - 100,2007 - 12 weeks 11,500 - 289,55297 - 16 weeks 18,300 - 137,27598 - 29 weeks (2nd trimester) 1,400 - 53,60531 - 41 weeks (3rd trimester) 940 - 60,000The Louis B-hCG assay is used for the early detection ofpregnancy; it cannot be used to diagnose any conditionunrelated to . If a B-hCG level is not supportedby the clinical evidence, results should be confirmed by analternative method (qualitative urine hCG, for example). 02/11/2025 2:39 PM EDT 02/11/2025 2:51 PM EDT Generic External Data Provider LAB BLOOD ORDERAB LES Final Result Performing Organization Address [facility]/ZIP Co de Phone Number [facility] [address] [place] [phone] * Magnesium (02/11/2025 2:39 PM EDT) Pathologist [facility] Magnesium 2.3 1.6 - 2.6 mg/dL [facility] 02/11/2025 2:39 PM EDT 02/11/2025 2:51 PM EDT us Generic External Data Provider LAB BLOOD ORDERAB LES Final Result Performing Organization Address [facility]/ZIP Co de Phone Number [facility] [address] [place] [phone] * Hepatic Function Panel (02/11/2025 2:39 PM EDT) Bilirubin, Total 0.2 0.0 - 1.0 mg/dL [facility] Bilirubin, Direct <0.2 0.0 - 0.5 mg/dL [facility] Aspartate Amino Transferase 21 5 - 31 U/L [facility] Alanine Aminotransferase 24 0 - 31 U/L [facility] Total Protein 7.7 6.5 - 8.0 g/dL [facility] Albumin Level 4.5 3.5 - 5.0 g/dL [facility] Alkaline Phosphatase 70 39 - 117 U/L [facility] 02/11/2025 2:39 PM EDT 02/11/2025 2:51 PM EDT us Generic External Data Provider LAB BLOOD ORDERAB LES Final Result [facility] [address] [place] [phone] * Basic Metabolic Panel (02/11/2025 2:39 PM EDT) Pathologist [facility] Sodium 140 135 - 145 mmol/L [facility] Potassium 4.2 3.3 - 5.1 mmol/L [facility] Chloride 108 96 - 108 mmol/L [facility] Carbon Dioxide 24 22 - 29 mmol/L [facility] Anion Gap 12 12 - 20 [facility] Urea Nitrogen (BUN) 16 9 - 16 mg/dL [facility] Creatinine, Serum 0.77 0.5 - 1.4 mg/dL [facility] Creatinine Clr Calc Pharmacy 144.4 [facility] Comment:Provided height and weight: 172.72 cm,102.1 kg.eGFR (calculated from the MDRD study equation) and eCrCl(calculated from the Cockcroft-Gault equation) are based ondifferent parameters and may not yield comparable results.If eCrCl result is absurd, please check patient'sheight/weight. Estimated Glomerular Filt Rate >60 [facility] Comment:Chronic Kidney Disea se: Estimated GFR < 60 mL/min/[id number] Kidney Disease: Estimated GFR < 15 mL/min/1.73m2 Glucose 88 60 - 115 mg/dL [facility] Calcium 9.0 8.4 - 10.2 mg/dL [facility] 02/11/2025 2:39 PM EDT 02/11/2025 2:51 PM EDT us Generic External Data Provider LAB BLOOD ORDERAB LES Final Result Performing Organization Address City/State/[facility] Co de Phone Number [facility] [address] [place] [phone] * XR Chest 2 Views (02/11/2025 1:54 PM EDT) Anatomical Region Laterality Modality Chest Radiographic Charlotte ging 02/11/2025 1:54 PM EDT Narrative 02/11/2025 2:59 PM EDT [address] [address] XRay Report Signed Patient: Radha Stearns MR#: [id number] 4 : 2005 Acct:[id number] Age/Sex: 20 / F ADM Date: 02/11/25 Loc: HO.ED Attending Dr: Ordering Physician: Ange Frank Date of Service: 02/11/25 Procedure(s): XR chest 2V Accession Number(s): [id number] cc: Ange Frank; [facility] TURF AND GROUNDS SUPERVISOR EXAMINATION: XR CHEST CLINICAL INFORMATION: CP COMPARISON: [...] 02/11/25 1457 DD/ 1354 TD/TT: 02/11/25 1451 Thermostat Machine Tender: Procedure Note Donotuseinterpreter, Image - 02/11/[address] [address] XRay Report Signed Patient: Radha Stearns AMR#: [id number] 4 : 2005Acct:[id number] Age/Sex: 20 / FADM Date: 02/11/25 Loc: HO.ED Attending Dr: Ordering Physician: Ange Frank Date of Service: 02/11/25 Procedure(s): XR chest 2V Accession Number(s): [id number] cc: Ange Frank; [facility] TURF AND GROUNDS SUPERVISOR EXAMINATION: XR CHEST CLINICAL INFORMATION: CP COMPARISON: [...] 02/11/25 1457 DD/ 1354 TD/TT: 02/11/25 1451 Thermostat Machine Tender: [facility] External Provider IMG XR PROCEDURES Final Result * (ABNORMAL) Bacterial Vaginosis Panel (01/12/2025 3:12 PM EDT) TRICHOMONAS VAGINALIS DETECTION BY PCR NOT DETECTED Not Detect [facility] BACTERIAL VAGINOSIS DETECTION BY PCR NEGATIVE Negative [facility] Comment:The BV organism targ ets of [...] GROUP DETECTION BY PCR DETECTED(A) Not Detect [facility] Divina glab krusei PCR NOT DETECTED Not Detect [facility] Swab Vaginal structure / Unknown 01/12/2025 3:12 PM EDT 01/12/2025 6:11 PM EDT [facility] LAB MICROBIOLOGY - GENERAL OR DERABLES Final Result [facility] [address] [place] [phone] * (ABNORMAL) Lipid Panel, Standard (09/11/2023 3:53 PM EDT) Triglycerides 247(H) <150 mg/dL [facility] Comment:Desirable Triglyceri de: less than 90 mg/dLBorderline High Triglyceride: 90-129 mg/dLHigh Triglyceride: greater than 130 mg/dL Cholesterol 154 <200 mg/dL [facility] Comment:Desirable Cholestero l: less than 170 mg/dLBorderline High Cholesterol: 170-199 mg/dLHigh Cholesterol: greater than 200 mg/dL LDL Cholesterol Calculated 71 <100 mg/dL [facility] Comment:Desirable LDL: less than 110 mg/dLBorderline LDL: 110-129 mg/dLHigh LDL: greater than or equal to 130 mg/dL HDL Cholesterol 34(L) >40 mg/dL [facility] Comment:Desirable HDL: great er than 45 mg/dLBorderline HDL: 40-45 mg/dLLow HDL: less than 40 mg/dL Note: This HDL assay may give artificially low results in patients with liver disease. Blood Venous blood specimen / Unknown 09/11/2023 3:53 PM EDT 09/11/2023 5:18 PM EDT [facility] TURF AND GROUNDS SUPERVISOR LAB BLOOD ORDERABLES Final Re sult [facility] [address] [place] [address] [phone] from Last 3 Months or Most Recently Relevant to Health Maintenance Insurance [place] [facility] [employer] [place] Care Teams Electric Motor Repairer Relationship Specialty Start Date End Date Jagjit SHANTI Padilla [address] [place] [phone] PCP - General Family Medicine 09/04/23 Barbie Slade Office Machine Servicer ApprenticeMedicaid Analyst 12/16/24
--- OUTSIDE RECORDS SUMMARY | 2025-02-16 05:13 | XMS_ITS | Encounter Summary ---
Author Organization [employer] Address [address] [facility] 7t [place] [address] Care Team Providers Care Nurse Manager Name Role Phone Kayley Looney DO Primary Care Provider [phone] [facility] Primary Care Provider [phone] Reason for Visit * Reason Onset Date Comments Med Refill 04/26/2023 Encounter Details Date Type Department Care Team ([facility] st Contact Info) Description 04/26/2023 Refill [facility] [address] [place] [address] Kayley Looney DO [address] [place], [place] [phone] Cough in adult; Moderate asthma with acute [...] Base) MCG/ACT inhaler to be sent to [facility] pharmacy documented in this encounter Plan of Treatment Upcoming Encounters Date Type Department Care Team (Late st Contact Info) Description 02/16/2025 8:30 AM EDT Office Visit [facility] [place] [address] 03/05/2025 1:15 PM EDT Office Visit [facility] [address] [place] [address] Valerie Danielson FNP [address] [place] [phone] documented as of this encounter Visit Diagnoses Diagnosis Cough in adult Moderate asthma with acute exacerbation, unspecified whether persistent documented in this encounter Care Teams Nurse Manager Relationship Specialty Start Date End Date Kayley Looney DO [address] [place] [phone] PCP - General Pediatrics 02/11/13 09/03/23 Valerie Danielson FNP [address] [place] [phone] PCP - General Family Medicine 09/04/23 Barbie Slade Hockey PlayerCare Process Manager 12/16/24 documented as of this encounter
--- OUTSIDE RECORDS SUMMARY | 2025-02-16 05:13 | XMS_ITS | Encounter Summary ---
Author Organization [employer] Address [address] [facility] 7t [place] [address] Care Team Providers Care Rn Behavioral Health Name Role Phone DayapeteryuriKayley DO Primary Care Provider [phone] [facility] Primary Care Provider [phone] Encounter Details Date Type Department Care Team (Late Contact Info) Description 05/17/2022 Orders Only [facility] [address] [place], [place] [phone] Adelia Jalloh MD [address] [place] [address] [phone] Mild intermittent asthma, unspecified whether complicated (Primary [...] Description 02/16/2025 8:30 AM EDT Office Visit [facility] [address] [place] [address] [phone] 03/05/2025 1:15 PM EDT Office Visit [facility] [address] [place] [address] [phone] [facility], [facility] [address] [place] [address] documented as of this encounter Procedures Procedure [...] (Lucas) (08/10/2022 8:56 PM EST) IDNOW SERIAL# [id number] [facility] Influenza A Negative Negative [facility] Influenza B2 Negative Negative [facility] Influenza A B2 Note See Note [facility] Comment:The Lucas ID NOW In fluenza [...] PM EST 08/10/2022 9:04 PM EST us [facility] Exter nal Provider LAB MICROBIOLOGY - GENERAL ORDERABLES Final Result [facility] [address] [place] [phone] * COVID-19 ID NOW (LUCAS) (08/10/2022 8:56 PM EST) IDNOW SERIAL# [id number] [facility] COVID-19 TEST Negative Negative [facility] COVID-19 NOTE See Note [facility] Comment: Results are for the identification of SARS-CoV2 RNA. TheSARS-CoV2 RNA is generally detectable in respiratory samplesduring the acute phase of infection. Positive results areindicative of the presence of SARS-CoV-2 RNA; clinicalcorrelation with patient history and other diagnosticinformation is necessary to determine patient infectionstatus. Positive results do not rule out bacterial infectionor co- infection with other viruses.Testing facilities within the [facility] and itsterritories are required to report all [...] 8:56 PM EST 08/10/2022 9:04 PM EST [facility] Exter nal Provider LAB MOLECULAR DIAGNOSTICS ORDERABLES Final Result [facility] [address] [place] [phone] * Magnesium (08/10/2022 8:56 PM EST) Magnesium 1.7 1.6 - 2.6 mg/dL [facility] 08/10/2022 8:56 PM EST 08/10/2022 9:04 PM EST us [facility] External Provider LAB BLO OD ORDERABLES Final Result [facility] [address] [place] [phone] * (ABNORMAL) Comprehensive Metabolic Panel (08/10/2022 8:56 PM EST) Sodium 139 135 - 145 mmol/L [facility] Potassium 3.4 3.3 - 5.1 mmol/L [facility] Chloride 109(H) 96 - 108 mmol/L [facility] Carbon Dioxide 21(L) 22 - 29 mmol/L [facility] Anion Gap 12 12 - 20 [facility] Urea Nitrogen (BUN) 12 9 - 16 mg/dL [facility] Creatinine, Serum 0.77 0.5 - 1.4 mg/dL [facility] Creatinine Clr Calc Pharmacy TNP [facility] Comment:Cannot be calculated ; patient is less than 19 years old. Estimated Glomerular Filt Rate >60 [facility] Comment:NOTE: For -A merican individuals, multiply the result by 1.210.Chronic Kidney Disease: Estimated GFR < 60 mL/min/1.65g5Vdwdur Kidney Disease: Estimated GFR < 15 mL/min/1.73m2 Glucose 103 60 - 115 mg/dL [facility] Calcium 9.3 8.4 - 10.2 mg/dL [facility] Bilirubin, Total 0.4 0.0 - 1.0 mg/dL [facility] Aspartate Amino Transferase 17 5 - 31 U/L [facility] Alanine Aminotransferase 17 0 - 31 U/L [facility] Total Protein 7.4 6.5 - 8.0 g/dL [facility] Albumin Level 4.3 3.5 - 5.0 g/dL [facility] Alkaline Phosphatase 78 39 - 117 U/L [facility] 08/10/2022 8:56 PM EST 08/10/2022 9:04 PM EST us [facility] External Provider LAB BLO OD ORDERABLES Final Result [facility] [address] [place] [phone] * (ABNORMAL) CBC auto differential (08/10/2022 8:56 PM EST) White Blood Count 11.1(H) 4.8 - 10.8 X10*3/uL [facility] Red Blood Count 4.99 4.20 - 5.50 X10*6/uL [facility] Hemoglobin 12.9 12.0 - 16.0 g/dl [facility] Hematocrit 38.9 37.0 - 47.0 % [facility] Mean Corpuscular Volume 78.0(L) 80.0 - 98.0 fL [facility] Mean Corpuscular Hemoglobin 25.9(L) 27.0 - 33.0 pg [facility] Mean Corpuscular HGB Conc 33.2 31.0 - 35.0 g/dl [facility] Red Cell Distribution Width 13.4 11.0 - 16.0 % [facility] Platelet Count 351 160 - 400 X10*3/uL [facility] Mean Platelet Volume 9.1(L) 9.4 - 12.3 fL [facility] Neutrophils Percent Auto 61.2 45 - 73 % [facility] Imm Gran Pct Auto 0.3 0.0 - 0.4 % [facility] Lymphocytes Percent Auto 24.3 20 - 40 % [facility] Monocytes Percent Auto 6.4 2 - 11 % [facility] Eosinophils Percent Auto 6.6(H) 0 - 4 % [facility] Basophils Percent Auto 1.2 0 - 2 % [facility] NRBC Pct Auto 0.0 0.0 - 0.2 /100WBC [facility] Neutrophils Absolute Auto 6.8 2.0 - 8.3 x10*3/uL [facility] Imm Gran Abs Auto 0.03 0.00 - 0.03 X10*3/uL [facility] Lymphocytes Absolute Auto 2.7 1.2 - 4.9 X10*3/uL [facility] Monocytes Absolute Auto 0.7 0.1 - 1.2 X10*3/uL [facility] Eosinophils Absolute Auto 0.7(H) 0.0 - 0.4 X10*3/uL [facility] Basophils Absolute Auto 0.1 0.0 - 0.2 X10*3/uL [facility] NRBC Abs Auto 0.000 0.0 - 0.012 X10*3/uL [facility] 08/10/2022 8:56 PM EST 08/10/2022 9:04 PM EST us [facility] External Provider LAB BLO OD ORDERABLES Final Result Performing Organization Address City/State/[facility] Co de Phone Number [facility] [address] [place] [phone] documented in this encounter Visit Diagnoses Diagnosis Mild intermittent asthma, unspecified whether complicated- Primary documented in this encounter Care Teams Rn Behavioral Health Relationship Specialty Start Date End Date Kayley Looney DO [address] [place] [address] PCP - General Pediatrics 02/11/13 09/03/23 [facility] [address] [place] [address] PCP - General Family Medicine 09/04/23 Barbie Slade Fiberglass TechnicianFish Dressing Machine Feeder 12/16/24 documented as of this encounter
--- OUTSIDE RECORDS SUMMARY | 2025-02-16 05:13 | XMS_ITS | Encounter Summary ---
Author Organization [employer] Address 75 [facility] 7t [place] [address] Care Team Providers Care Sorting Machine Attendant Name Role Phone Valerie Danielson TRAFFIC WORKFORCE REPRESENTATIVE Primary Care Provider [phone] Reason for Visit * Reason Comments Med Refill Encounter Details Date Type Department Care Team ([facility] st Contact Info) Description 09/27/2023 Refill [facility] MED[facility]INE [address] [place], [place] [phone] Kayley Looney DO [address] [place], [place] [phone] Cough in adult; Moderate asthma with acute [...] Description 02/16/2025 8:30 AM EDT Office Visit [facility]THOD[facility] [address] [place] [address] 03/05/2025 1:15 PM EDT Office Visit [facility] MED[facility] [address] [place] [phone] Valerie Danielson FNP [address] [place] [address] documented as of this encounter Visit Diagnoses Diagnosis Cough in adult Moderate asthma with acute exacerbation, unspecified whether persistent documented in this encounter Additional Health Concerns Assessment Noted Time PHQ-9 Depression Total Score: 0 09/11/19 24 2:55 PM EDT documented as of this encounter Care Teams Sorting Machine Attendant Relationship Specialty Start Date End Date Valerie Danielson FNP [address] [place] [address] PCP - General Family Medicine 09/04/23 Barbie Slade Cone Machine FeederBoiler Shop Supervisor 12/16/24 documented as of this encounter
--- OUTSIDE RECORDS SUMMARY | 2025-02-16 05:13 | XMS_ITS | Encounter Summary ---
Author Organization [employer] Address 75 [facility] 7t [place] [address] Care Team Providers Care Transportation Security Officer Name Role Phone DilciaKayley alaniz DO Primary Care Provider [phone] [facility] Primary Care Provider Reason for Visit * Reason Comments Med Refill Encounter Details Date Type Department Care Team (Late st Contact Info) Description 05/20/2023 Refill [facility] MEDICINE [address] [place], [place] [phone] Adelia Jalloh MD [address] [place], [place] [phone] Cough in adult; Moderate asthma with acute [...] Office Visit [facility] ORTHODONTICS [address] [place], [place] [phone] 03/05/2025 1:15 PM EDT Office Visit [facility] MEDICINE [address] [place], [place] [phone] [facility] [address] [place] [address] documented as of this encounter Visit Diagnoses Diagnosis Cough in adult Moderate asthma with acute exacerbation, unspecified whether persistent documented in this encounter Care Teams Transportation Security Officer Relationship Specialty Start Date End Date Kayley Looney DO [address] [place] [address] PCP - General Pediatrics 02/11/13 09/03/23 [facility] [address] [place] [address] PCP - General Family Medicine 09/04/23 Barbie Slade Windows Software EngineerGrocery Store Clerk 12/16/24 documented as of this encounter
--- OUTSIDE RECORDS SUMMARY | 2025-02-16 05:13 | XMS_ITS | Encounter Summary ---
Author Organization [employer] Address 75 [facility] 7t [place] [address] Care Team Providers Care Psychology Associate Name Role Phone [place] [facility] Primary Care Provider [phone] Reason for Visit * Reason Comments Med Refill Encounter Details Date Type Department Care Team ([facility] st Contact Info) Description 10/21/2024 Refill [facility] MEDICINE 230 [place], [place] [phone] [facility] 230 [place] [address] Moderate asthma with acute exacerbation, unspecified whether [...] Description 02/16/2025 8:30 AM EDT Office Visit [facility] ORTHODONT[facility] [address] [place] [address] 03/05/2025 1:15 PM EDT Office Visit [facility] MED[facility] [address] [place] [address] [facility] [address] [place] [address] documented as of this encounter Visit Diagnoses Diagnosis Moderate asthma with acute exacerbation, unspecified whether persistent Cough in adult documented in this encounter Additional Health Concerns Assessment Noted Time PHQ-9 Depression Total Score: 0 10/08/19 11:19 AM EDT documented as of this encounter Care Teams Psychology Associate Relationship Specialty Start Date End Date BridgeportValerie [facility] 230 [place] [address] PCP - General Family Medicine 09/04/23 Barbie Slade Paperboard Machine OperatorMarine Fitter 12/16/24 documented as of this encounter
--- OUTSIDE RECORDS SUMMARY | 2025-02-16 05:13 | XMS_ITS | Encounter Summary ---
Author Organization [employer] Address 75 [facility] 7t [place] [address] Care Team Providers Care Clinical Trials Nurse Name Role Phone Kayley Looney DO Primary Care Provider [phone] [facility] Primary Care Provider [phone] Reason for Visit * Reason Comments Med Refill Encounter Details Date Type Department Care Team (Late st Contact Info) Description 08/16/2023 Refill [facility] MEDICINE 230 [place] [address] Kayley Looney DO 230 [place], [place] [phone] Cough in adult; Moderate asthma with acute [...] 8:30 AM EDT Office Visit [facility] ORTHODONTICS 230 [place], [place] [phone] 03/05/2025 1:15 PM EDT Office Visit [facility] MEDICINE 230 [place], [place] [phone] [facility] [address] [place] [address] documented as of this encounter Visit Diagnoses Diagnosis Cough in adult Moderate asthma with acute exacerbation, unspecified whether persistent documented in this encounter Care Teams Clinical Trials Nurse Relationship Specialty Start Date End Date Kayley Looney DO [address] [place] [address] PCP - General Pediatrics 02/11/13 09/03/23 [facility] [address] [place] [address] PCP - General Family Medicine 09/04/23 Barbie Slade Aviation Boatswain'S MateVarnishing Machine Operator 12/16/24 documented as of this encounter
--- OUTSIDE RECORDS SUMMARY | 2025-02-16 05:13 | XMS_ITS | Encounter Summary ---
Author Organization [employer] Address 75 [facility] 7t [place] [address] Care Team Providers Care Locomotive Mechanic Apprentice Name Role Phone Jagjit [facility] Primary Care Provider [phone] Reason for Visit * Reason Onset Date Comments Returning Call 12/07/2024 Encounter Details Date Type Department Care Team ([facility] Contact Info) Description 12/07/2024 Telephone [facility] MEDICINE [address] [place], [place] [phone] [facility] 230 [place], [place] [phone] Returning Call Social History Tobacco Use Types [...] Description 02/16/2025 8:30 AM EDT Office Visit [facility] ORTHODONT[facility] [address] [place] [address] 03/05/2025 1:15 PM EDT Office Visit [facility] MEDICINE [address] [place] [address] Valerie Danielson [facility] [address] [place] [address] documented as of this encounter Visit Diagnoses Not on filedocumented in this encounter Additional Health Concerns Assessment Noted Time PHQ-9 Depression Total Score: 0 10/08/19 11:19 AM EDT documented as of this encounter Care Teams Locomotive Mechanic Apprentice Relationship Specialty Start Date End Date Valerie Danielson FNP 230 [place] [address] PCP - General Family Medicine 09/04/23 Barbie Slade Sales Engagement ExecutiveParty Plan Sales Director 12/16/24 documented as of this encounter
--- OUTSIDE RECORDS SUMMARY | 2025-02-16 05:13 | XMS_ITS | Encounter Summary ---
Author Organization [employer] Address 75 [facility] 7t [place] [address] Care Team Providers Care Brand Analyst Name Role Phone Valerie Danielson ASSET AVAILABILITY LEADER Primary Care Provider [phone] Encounter Details Date Type Department Care Team ([facility] Contact Info) Description 02/11/2025 Orders Only GENERIC [...] Description 02/16/2025 8:30 AM EDT Office Visit [facility]ONT[facility] 230 [place] [address] 03/05/2025 1:15 PM EDT Office Visit [facility] MEDICINE 230 [place], [place] [phone] [facility], ASSET AVAILABILITY LEADER [address] [place] [address] documented as of this encounter Procedures Procedure [...] EDT documented in this encounter Results * D Dimer High Sensitivity (02/11/2025 6:26 PM EDT) [facility] D Dimer High Sensitivity <150 NG/ML [facility] Comment:D-DIMER HS REFERENCE RANGENote: Our [...] LES Final Result Performing Organization Address [facility] de Phone Number [facility] [address] [place] [phone] * High Sensitivity Troponin I (02/11/2025 2:39 PM EDT) [facility] TROPONIN I HIGH SENSITIVITY <2.7 <3.5 - 17.0 ng/L [facility] Comment:The Louis high sens itivity Troponin-I results should beused in conjunction with other diagnostic information suchas ECG, clinical observations and information, and patientsymptoms to aid in the diagnosis of NC. 02/11/2025 2:39 PM EDT 02/11/2025 2:51 PM EDT Generic External Data Provider LAB BLOOD ORDERAB LES Final Result Performing Organization Address [facility] Co de Phone Number [facility] [address] [place] [phone] * hCG, Total, Quantitative (02/11/2025 2:39 PM EDT) [facility] HCG Quantitative <2 mIU/mL [facility] Comment:Weeks post LMP Appro ximate hCG(Last Menstrual Period) Range (mIU/ml)3 - 4 weeks 9 - 1304 - 5 weeks 75 - 2,6005 - 6 weeks 850 - 20,8006 - 7 weeks 4000 - 100,2007 - 12 weeks 11,500 - 289,98715 - 16 weeks 18,300 - 137,62793 - 29 weeks (2nd trimester) 1,400 - 53,95127 - 41 weeks (3rd trimester) 940 - [...] LES Final Result Performing Organization Address [facility]/ZIP Co de Phone Number [facility] [address] [place] [phone] * Magnesium (02/11/2025 2:39 PM EDT) Magnesium 2.3 1.6 - 2.6 mg/dL [facility] 02/11/2025 2:39 PM EDT 02/11/2025 2:51 PM EDT Generic External Data Provider LAB BLOOD ORDERAB LES Final Result Performing Organization Address [facility]/ZIP Co de Phone Number [facility] [address] [place] [phone] * Basic Metabolic Panel (02/11/2025 2:39 PM EDT) Sodium 140 135 - 145 mmol/L [facility] Potassium 4.2 3.3 - 5.1 mmol/L [facility] Chloride 108 96 - 108 mmol/L [facility] Carbon Dioxide 24 22 - 29 mmol/L [facility] Anion Gap 12 12 - 20 [facility] Urea Nitrogen (BUN) 16 9 - 16 mg/dL [facility] Creatinine, Serum 0.77 0.5 - 1.4 mg/dL [facility] Creatinine Clr Calc Pharmacy 144.4 [facility] Comment:Provided height and weight: 172.72 cm,102.1 kg.eGFR (calculated from the MDRD study equation) and eCrCl(calculated from the Cockcroft-Gault equation) are based ondifferent parameters and may not yield comparable results.If eCrCl result is absurd, please check patient'sheight/weight. Estimated Glomerular Filt Rate >60 [facility] Comment:Chronic Kidney Disea se: Estimated GFR < 60 mL/min/[id number] Kidney Disease: Estimated GFR < 15 mL/min/1.73m2 Glucose 88 60 - 115 mg/dL [facility] Calcium 9.0 8.4 - 10.2 mg/dL [facility] 02/11/2025 2:39 PM EDT 02/11/2025 2:51 PM EDT us Generic External Data Provider LAB BLOOD ORDERAB LES Final Result Performing Organization Address City/State/[facility] Co de Phone Number [facility] [address] [place] [phone] * Hepatic Function Panel (02/11/2025 2:39 PM EDT) Bilirubin, Total 0.2 0.0 - 1.0 mg/dL [facility] Bilirubin, Direct <0.2 0.0 - 0.5 mg/dL [facility] Aspartate Amino Transferase 21 5 - 31 U/L [facility] Alanine Aminotransferase 24 0 - 31 U/L [facility] Total Protein 7.7 6.5 - 8.0 g/dL [facility] Albumin Level 4.5 3.5 - 5.0 g/dL [facility] Alkaline Phosphatase 70 39 - 117 U/L [facility] 02/11/2025 2:39 PM EDT 02/11/2025 2:51 PM EDT us Generic External Data Provider LAB BLOOD ORDERAB LES Final Result [facility] [address] [place], [place] [phone] * (ABNORMAL) CBC auto differential (02/11/2025 2:39 PM EDT) White Blood Count 8.6 4.8 - 10.8 X10*3/uL [facility] Red Blood Count 4.75 4.20 - 5.50 X10*6/uL [facility] Hemoglobin 12.4 12.0 - 16.0 g/dl [facility] Hematocrit 38.5 37.0 - 47.0 % [facility] Mean Corpuscular Volume 81.1 80.0 - 98.0 fL [facility] Mean Corpuscular Hemoglobin 26.1(L) 27.0 - 33.0 pg [facility] Mean Corpuscular HGB Conc 32.2 31.0 - 35.0 g/dl [facility] Red Cell Distribution Width 13.9 11.0 - 16.0 % [facility] Platelet Count 383 160 - 400 X10*3/uL [facility] Mean Platelet Volume 9.4 9.4 - 12.3 fL [facility] Neutrophils Percent Auto 57.8 45 - 73 % [facility] Imm Gran Pct Auto 0.3 0.0 - 0.4 % [facility] Lymphocytes Percent Auto 26.9 20 - 40 % [facility] Monocytes Percent Auto 6.8 2 - 11 % [facility] Eosinophils Percent Auto 6.9(H) 0 - 4 % [facility] Basophils Percent Auto 1.3 0 - 2 % [facility] NRBC Pct Auto 0.0 0.0 - 0.2 /100WBC [facility] Neutrophils Absolute Auto 5.0 2.0 - 8.3 x10*3/uL [facility] Imm Gran Abs Auto 0.03 0.00 - 0.03 X10*3/uL [facility] Lymphocytes Absolute Auto 2.3 1.2 - 4.9 X10*3/uL [facility] Monocytes Absolute Auto 0.6 0.1 - 1.2 X10*3/uL [facility] Eosinophils Absolute Auto 0.6(H) 0.0 - 0.4 X10*3/uL [facility] Basophils Absolute Auto 0.1 0.0 - 0.2 X10*3/uL [facility] NRBC Abs Auto 0.000 0.0 - 0.012 X10*3/uL [facility] 02/11/2025 2:39 PM EDT 02/11/2025 2:51 PM EDT us Generic External Data Provider LAB BLOOD ORDERAB LES Final Result Performing Organization Address City/State/[facility] Co de Phone Number [facility] [address] [place] [phone] * XR Chest 2 Views (02/11/2025 1:54 PM EDT) Anatomical Region Laterality Modality Chest Radiographic Charlotte ging 02/11/2025 1:54 PM EDT Narrative 02/11/2025 2:59 PM EDT [address] [address] XRay Report Signed Patient: Radha Stearns MR#: [id number] 4 : 2005 Acct:[id number] Age/Sex: 20 / F ADM Date: 02/11/25 Loc: .ED Attending Dr: Ordering Physician: Ange Frank Date of Service: 02/11/25 Procedure(s): XR chest 2V Accession Number(s): [id number] cc: Ange Frank; [facility] ASSET AVAILABILITY LEADER EXAMINATION: XR CHEST CLINICAL INFORMATION: CP COMPARISON: [...] signed by Trever Lomeli MD in OV> 02/11/251456 DD/ 1354 TD/TT: 02/11/25 1451 Delivery Mgr: Procedure Note Donotuseinterpreter, Image - 02/11/[address] [address] XRay Report Signed Patient: Radha Stearns AMR#: [id number] 4 : 2005Acct:[id number] Age/Sex: 20 / FADM Date: 02/11/25 Loc: .ED Attending Dr: Ordering Physician: Ange Frank Date of Service: 02/11/25 Procedure(s): XR chest 2V Accession Number(s): [id number] cc: Ange Frank; [facility] ASSET AVAILABILITY LEADER EXAMINATION: XR CHEST CLINICAL INFORMATION: CP COMPARISON: [...] <Electronically signed by Trever Lomeli MDin OV> 02/11/251456 DD/ 1354 TD/TT: 02/11/25 1451 Delivery Mgr: [facility] External Provider IMG XR PROCEDURES Final Result documented in this encounter Visit Diagnoses Not on filedocumented in this encounter Additional Health Concerns Assessment Noted Time PHQ-9 Depression Total Score: 0 10/08/19 11:19 AM EDT documented as of this encounter Care Teams Brand Analyst Relationship Specialty Start Date End Date Valerie Danielson ASSET AVAILABILITY LEADER [address] [place] [address] PCP - General Family Medicine 09/04/23 Barbie Slade Special Education Classroom AideSenior Wind Energy Consultant 12/16/24 documented as of this encounter
--- OUTSIDE RECORDS SUMMARY | 2025-02-16 05:13 | XMS_ITS | Encounter Summary ---
Author Organization [employer] Address 75 [facility] 7t [place] [address] Care Team Providers Care Airplane Technician Name Role Phone Valerie Danielson FOREST FIRE MANAGEMENT OFFICER Primary Care Provider [phone] Reason for Visit * Reason Comments Med Refill Encounter Details Date Type Department Care Team ([facility] st Contact Info) Description 06/18/2024 Refill [facility] MEDICINE 230 [place], [place] [phone] Alana Castillo MD 230 [place], [place] [phone] Moderate asthma with acute exacerbation, unspecified whether [...] Description 02/16/2025 8:30 AM EDT Office Visit [facility] ORTHODONT[facility] [address] [place] [address] 03/05/2025 1:15 PM EDT Office Visit [facility] MEDICINE [address] [place] [address] [place]erie [address] [address] documented as of this encounter Visit Diagnoses Diagnosis Moderate asthma with acute exacerbation, unspecified whether persistent documented in this encounter Additional Health Concerns Assessment Noted Time PHQ-9 Depression Total Score: 0 02/14/20 24 2:22 PM EDT documented as of this encounter Care Teams Airplane Technician Relationship Specialty Start Date End Date Valerie Danielson FNP [address] [place] [address] PCP - General Family Medicine 09/04/23 Barbie Slade Soil AnalystFacilities Engineer 12/16/24 documented as of this encounter
--- OUTSIDE RECORDS SUMMARY | 2025-02-16 05:13 | XMS_ITS | Encounter Summary ---
Author Organization [employer] Address 75 [facility] 7t [place] [address] Care Team Providers Care Merchandising Professor Name Role Phone Kayley Looney DO Primary Care Provider [phone] [facility] Primary Care Provider [phone] Reason for Visit * Reason Comments Med Refill Encounter Details Date Type Department Care Team (Late st Contact Info) Description 07/08/2023 Refill [facility] MEDICINE [address] [place] [address] Kayley Looney DO 230 [place], [place] [phone] Cough in adult; Moderate asthma with acute [...] Description 02/16/2025 8:30 AM EDT Office Visit [facility] ORTHODONTICS [address] [place], [place] [phone] 03/05/2025 1:15 PM EDT Office Visit [facility] MEDICINE [address] [place], [place] [phone] [facility] [address] [place] [address] documented as of this encounter Visit Diagnoses Diagnosis Cough in adult Moderate asthma with acute exacerbation, unspecified whether persistent documented in this encounter Care Teams Merchandising Professor Relationship Specialty Start Date End Date Kayley Looney DO [address] [place] [address] PCP - General Pediatrics 02/11/13 09/03/23 [facility] [address] [place] [address] PCP - General Family Medicine 09/04/23 Barbie Slade Motorcoach DriverTyre Retreader 12/16/24 documented as of this encounter
--- OUTSIDE RECORDS SUMMARY | 2025-02-16 05:13 | XMS_ITS | Encounter Summary ---
Author Organization [employer] Address 75 [facility] 7t [place] [address] Care Team Providers Care Ballistic Expert Name Role Phone Troy [facility] Primary Care Provider [phone] Reason for Visit * Reason Comments Med Refill Encounter Details Date Type Department Care Team ([facility] st Contact Info) Description 10/31/2024 Refill [facility] MEDICINE 230 [place], [place] [phone] Troy [facility] 230 [place], [place] [phone] Moderate asthma with acute exacerbation, unspecified whether [...] Office Visit [facility] ORTH[facility]ONT[facility] [address] [place] [address] 03/05/2025 1:15 PM EDT Office Visit [facility] MED[facility] [address] [place] [address] TroyValerie [facility] [address] [place] [address] documented as of this encounter Visit Diagnoses Diagnosis Moderate asthma with acute exacerbation, unspecified whether persistent documented in this encounter Additional Health Concerns Assessment Noted Time PHQ-9 Depression Total Score: 0 10/08/19 11:19 AM EDT documented as of this encounter Care Teams Ballistic Expert Relationship Specialty Start Date End Date Valerie Danielson FNP [address] [place] [phone] PCP - General Family Medicine 09/04/23 Barbie Slade Hockey ScoutFacs Teacher 12/16/24 documented as of this encounter
--- OUTSIDE RECORDS SUMMARY | 2025-02-16 05:13 | XMS_ITS | Encounter Summary ---
Author Organization [employer] Address 75 [facility] 7t [place] [address] Care Team Providers Care Track Laminating Machine Tender Name Role Phone AayushKayley Primary Care Provider [phone] [facility] Primary Care Provider [phone] Encounter Details Date Type Department Care Team (Late st Contact Info) Description 05/09/2022 Abstract [facility] ORTHODONTICS [address] [place] [address] Dental, Provider, DDS Social History Tobacco Use [...] 8:30 AM EDT Office Visit [facility] [address] [place] [address] 03/05/2025 1:15 PM EDT Office Visit [facility] MEDICINE [address] [place] [address] [facility] [address] [place] [address] documented as of this encounter Procedures Procedure [...] on filedocumented in this encounter Care Teams Track Laminating Machine Tender Relationship Specialty Start Date End Date Kayley Looney DO 230 [place] [address] PCP - General Pediatrics 02/11/13 09/03/23 [place] FNP [address] [place] [address] PCP - General Family Medicine 09/04/23 Barbie Slade Packing Machine TenderTruck Bracer 12/16/24 documented as of this encounter
--- NOTE | 2025-02-16 05:36 | ED.SOB ---
HPI - SOB/Dyspnea General Chief Complaint: Dyspnea Stated Complaint: ASTHMA EXACERBATION Time Seen by Provider: 02/16/25 04:43 Source: patient and EMS Mode of arrival: EMS Limitations: no limitations History of Present Illness ED Provider: Dr. Gudelia Sarabia HPI Narrative: 20-year-old female with history of asthma presenting via EMS with difficulty breathing. Patient woke out of sleep with shortness of breath. Ran out of her inhaler. Received nebulizer treatments, Solu-Medrol and magnesium in route by EMS and is feeling significantly improved. She denies recent illness including fevers, known sick contacts, chest pain, abdominal pain, nausea, vomiting, diarrhea or bowel changes. Last menstrual cycle was about 2 weeks ago. Related Data Previous Rx's ?Medication ?Instructions ?Recorded albuterol sulfate 90 mcg/actuation 2 inh inhalation Q4-6H PRN 09/14/21 breath activated powder inhaler shortness of breath or wheezing #1 ea albuterol sulfate 90 mcg/actuation 2 inh inhalation Q4-6H PRN 02/04/22 breath activated powder inhaler shortness of breath or wheezing #1 ea prednisone 20 mg tablet 20 mg PO DAILY 4 days #4 tabs 02/04/22 albuterol sulfate 90 mcg/actuation 2 inh inhalation Q4-6H PRN 08/10/22 breath activated powder inhaler shortness of breath or wheezing #1 ea prednisone 20 mg tablet 40 mg (2 x 20 mg) PO DAILY 5 days 08/10/22 #10 tabs albuterol sulfate 90 mcg/actuation 2 puff inhalation Q4-6H PRN 01/25/23 aerosol inhaler (ProAir HFA) shortness of breath or wheezing #8.5 grams prednisone 50 mg tablet 50 mg PO DAILY #4 tabs 01/25/23 cephalexin 500 mg capsule 500 mg PO BID 10 days #19 caps 01/05/24 albuterol sulfate 90 mcg/actuation 2 puff inhalation QID PRN 01/30/24 aerosol inhaler shortness of breath or wheezing #6.7 grams budesonide-formoterol HFA 80 1 inh inhalation BID #10.2 grams 01/30/24 mcg-4.5 mcg/actuation aerosol inhaler prednisone 20 mg tablet 40 mg (2 x 20 mg) PO DAILY 4 days 01/30/24 #8 tabs amoxicillin 875 mg-potassium 1 tab PO Q12H #20 tabs 11/09/24 clavulanate 125 mg tablet ibuprofen 600 mg tablet 600 mg PO Q6H PRN pain #20 tabs 11/09/24 prednisone 20 mg tablet 40 mg (2 x 20 mg) PO DAILY #10 tabs 02/11/25 albuterol sulfate 90 mcg/actuation 2 inh inhalation Q4H PRN shortness 02/16/25 breath activated powder inhaler of breath #1 ea prednisone 50 mg tablet 50 mg PO DAILY 5 days #5 tabs 02/16/25 Allergies Allergy/AdvReac Type Severity Reaction Status Date / Time Seasonal Allergies Allergy Mild Nasal Verified 02/16/25 04:44 congestion Review of Systems Review of Systems: as per HPI, full review of systems performed and negative but for the above mentioned pertinent positives and negatives. [facility] Past Medical History Medical History Asthma Social History Social History Alcohol intake: never Patient Tobacco Use Status: Never used Tobacco Smoked in Last 30 Days: No Use of substances other than those prescribed or required for medical reasons: No Advance Directives: No Advance Directives Information Provided: Yes Physical Exam Exam: Exam: GENERAL: Ill-appearing, moderate respiratory distress. SKIN: Normal skin color for ethnicity, warm, dry, no rashes noted. HEENT:? Normocephalic, atraumatic, no stridor, EOMI. NECK: Soft, supple, full ROM, midline structures nontender, no step-offs, no deformities, no lymphadenopathy. CHEST: Heart regular tachycardia, symmetric chest rise and fall. PULMONARY: Diffuse wheezes throughout, tachypnea, poor air movement bilaterally, moderate respiratory distress. ABDOMINAL: Soft, nontender, quiet bowel sounds in all quadrants. : Deferred. MUSCULOSKELETAL: Normal tone, full range of motion, no deformities, no peripheral edema. NEURO: Alert and oriented to person, CN II through XII intact, no focal neurologic deficits.? PSYCHIATRIC: Anxious affect, appropriate demeanor. Vital Signs: Vital Signs: Last Vital Signs Temp 98.7 F 02/16/25 07:21 Pulse 84 02/16/25 07:21 Resp 15 02/16/25 07:21 BP 129/85 02/16/25 07:21 Pulse Ox 100 02/16/25 07:21 O2 Del Method Room Air 02/16/25 07:21 BMI result Body Mass Index 39.1 Medications Administered Discontinued Medications Generic Name Dose Route Start Last Admin Trade Name Ever PRN Reason Stop Dose Admin Albuterol Sulfate 5 mg/ 0 mg 02/16/25 04:46 02/16/25 04:51 Albuterol/Ipratropium 3 ml INHALE 02/16/25 04:47 1 each ONCE ONE Administration Medical Decision Making Medical Decision Making [facility] [place] Narrative: Patient presents today with chief complaint of shortness of breath. Differential diagnosis includes, but is not limited to, upper respiratory infection, pneumonia, asthma exacerbation, CHF, pneumothorax, pleural effusion, pulmonary embolism, ACS. Broad-based work-up will be initiated to evaluate for etiology of patient's symptoms. Workup reassuring. No evidence of pneumonia or viral infection today. Discussed use of inhaler and return precautions. Differential Diagnosis Differential Diagnoses: The differential diagnosis associated with the presentation includes (as above) Admission/Observation Consideration of admission/observation: Escalation of care including admission/observation considered Lab Data [facility] [place] Lab Attestation statement: I reviewed the patient's lab results. Labs: Lab Results 02/16/25 Range/Units 05:43 Influenza Type A (PCR) NEGATIVE (Negative) Influenza Type B (PCR) NEGATIVE (Negative) RSV RNA Qual (PCR) NEGATIVE (Negative) SARS-CoV-2 RNA (RT-PCR) NEGATIVE (Negative) Independent Interpretation I performed an independent interpretation of an: Plain X-Ray Interpretation: My independent interpretation of the chest x-ray reveals no consolidations, pulmonary edema, pleural effusion, pneumothorax, obvious bony abnormalities. Radiology Impression Discussion of test interpretation with radiology: I have reviewed the radiologist's reading. Independent Historian Clinical information obtained from an independent historian. History obtained from or confirmed by: EMS Prescription Management I considered prescription management with: Other (albuterol, prednisone) Chronic Conditions Patient?s care impacted by: Other (asthma) Discharge Plan Discharge Clinical Impression: Asthma with exacerbation Patient Disposition: Home, Self-Care Instructions: Asthma (ED), How to Use a Breath-Activated Inhaler (ED) Additional Instructions: supervisor electric motor testing your medications at the pharmacy today. Follow up with your primary care doctor regarding your asthma and the need for more medications to control it better. Return to the emergency department with any new or worsening symptoms including: Worsening shortness of breath, fevers greater than 100?, bloody or brown sputum production, any new symptom that concerns you. Call 911 with any medical emergency. Prescriptions: New prednisone 50 mg tablet 50 mg PO DAILY 5 Days Qty: 5 0RF albuterol sulfate 90 mcg/actuation aerosol powdr breath activated 2 inh inhalation Q4H PRN (Reason: shortness of breath) Qty: 1 0RF No Action albuterol sulfate 90 mcg/actuation aerosol powdr breath activated 2 inh inhalation Q4-6H PRN (Reason: shortness of breath or wheezing) Qty: 1 0RF albuterol sulfate 90 mcg/actuation aerosol powdr breath activated 2 inh inhalation Q4-6H PRN (Reason: shortness of breath or wheezing) Qty: 1 0RF prednisone 20 mg tablet 20 mg PO DAILY 4 Days Qty: 4 0RF albuterol sulfate 90 mcg/actuation aerosol powdr breath activated 2 inh inhalation Q4-6H PRN (Reason: shortness of breath or wheezing) Qty: 1 0RF prednisone 20 mg tablet 40 mg PO DAILY 5 Days Qty: 10 0RF albuterol sulfate [ProAir HFA] 90 mcg/actuation HFA aerosol inhaler 2 puff inhalation Q4-6H PRN (Reason: shortness of breath or wheezing) Qty: 8.5 1RF prednisone 50 mg tablet 50 mg PO DAILY Qty: 4 0RF prednisone 20 mg tablet 40 mg PO DAILY 4 Days Qty: 8 0RF albuterol sulfate 90 mcg/actuation HFA aerosol inhaler 2 puff inhalation QID PRN (Reason: shortness of breath or wheezing) Qty: 6.7 0RF budesonide-formoterol 80-4.5 mcg/actuation HFA aerosol inhaler 1 inh inhalation BID Qty: 10.2 0RF Rx Instructions: rinse mouth after immediately after use cephalexin 500 mg capsule 500 mg PO BID 10 Days Qty: 19 0RF amoxicillin-pot clavulanate 875-125 mg tablet 1 tab PO Q12H Qty: 20 0RF ibuprofen 600 mg tablet 600 mg PO Q6H PRN (Reason: pain) Qty: 20 0RF prednisone 20 mg tablet 40 mg PO DAILY Qty: 10 0RF Stand Alone Forms: Work/School Release Interventions: ED Discharge Assessment Last Done: 02/16/25 07:21 Discharge Date/Time: 02/16/25 07:22 Print Language: Indonesian
[2025-02-16 06:25] LABS: Resp Syncy Virus RNA Qual PCR NEGATIVE (Negative); SARS COV2 PCR INHOUSE NEGATIVE (Negative)
[2025-02-16 07:01] VITALS: BP 129/85; PULSE 84; RESP 15; TEMP 37.1; O2SAT 100
[2025-02-16 07:21] VITALS: BP 129/85; PULSE 84; RESP 15; TEMP 37.1; O2SAT 100
== END 2025-02-16 07:22 | disposition home or self-care (01) ==
PROVIDERS: Emergency Provider Emergency Medicine
DX: J45.901 Unspecified asthma with (acute) exacerbation (principal); R06.02 Shortness of breath; Z03.818 Encounter for observation for suspected exposure to other biological agents ruled out
CPT/HCPCS: 87637; 94640; 99284

== ENCOUNTER 2025-03-29 02:37 | Emergency (ER) | payer MEDICAID, SELFPAY ==
[2025-03-29 02:41] VITALS: BP 120/67; BP 154/104; PULSE 100; PULSE 115; RESP 20; TEMP 36.5; O2SAT 92; O2SAT 97; BMI 39.0
[2025-03-29 03:01] VITALS: PULSE 103; RESP 24; O2SAT 92
[2025-03-29] MEDS: Albuterol Sulfate 2.5 MG, Albuterol/Iprat 2.5/0.5MG 3 ML 3 ML INHALE (03:10)
[2025-03-29 03:14] VITALS: PULSE 100; RESP 20; O2SAT 92
[2025-03-29 03:30] LABS: Resp Syncy Virus RNA Qual PCR NEGATIVE (Negative); SARS COV2 PCR INHOUSE NEGATIVE (Negative)
--- NOTE | 2025-03-29 03:33 | ED_ITS ---
HPI - Asthma General Chief Complaint: Asthma Stated Complaint: SOB hx ASTHMA Time Seen by Provider: 03/29/25 02:44 Source: patient and EMS Mode of arrival: EMS Limitations: no limitations History of Present Illness ED Provider: Dr. Gudelia Sarabia HPI Narrative: 20-year-old female with history of asthma presents with shortness of breath and wheezing that began this evening when she was getting up to use the bathroom. Admits she has been having upper respiratory symptoms including sinus congestion and cough over the last couple of days. Ran out of her asthma inhaler today. Denies other illness including fever, chest pain, abdominal pain, nausea, vomiting, bowel changes, urinary complete, known sick contacts or travel. Related Data Previous Rx's ?Medication ?Instructions ?Recorded albuterol sulfate 90 mcg/actuation 2 inh inhalation Q4 -6H PRN 09/14/21 breath activated powder inhaler shortness of breath or wheezing #1 ea albuterol sulfate 90 mcg/actuation 2 inh inhalation Q4 -6H PRN 02/04/22 breath activated powder inhaler shortness of breath or wheezing #1 ea prednisone 20 mg tablet 20 mg PO DAILY 4 days #4 tab s 02/04/22 albuterol sulfate 90 mcg/actuation 2 inh inhalation Q4 -6H PRN 08/10/22 breath activated powder inhaler shortness of breath or wheezing #1 ea prednisone 20 mg tablet 40 mg (2 x 20 mg) PO DAILY 5 days 08/10/22 #10 tabs albuterol sulfate 90 mcg/actuation 2 puff inhalation Q 4-6H PRN 01/25/23 aerosol inhaler (ProAir HFA) shortness of breath or wh eezing #8.5 grams prednisone 50 mg tablet 50 mg PO DAILY #4 tabs 01/25 cephalexin 500 mg capsule 500 mg PO BID 10 days #19 ca ps 01/05/24 albuterol sulfate 90 mcg/actuation 2 puff inhalation Q ID PRN 01/30/24 aerosol inhaler shortness of breath or wheez ing #6.7 grams budesonide-formoterol HFA 80 1 inh inhalation BID #10. 2 grams 01/30/24 mcg-4.5 mcg/actuation aerosol inhaler prednisone 20 mg tablet 40 mg (2 x 20 mg) PO DAILY 4 days 01/30/24 #8 tabs amoxicillin 875 mg-potassium 1 tab PO Q12H #20 tabs clavulanate 125 mg tablet ibuprofen 600 mg tablet 600 mg PO Q6H PRN pain #20 t abs 11/09/24 prednisone 20 mg tablet 40 mg (2 x 20 mg) PO DAILY # 10 tabs 02/11/25 albuterol sulfate 90 mcg/actuation 2 inh inhalation Q4 H PRN shortness 02/16/25 breath activated powder inhaler of breath #1 ea prednisone 50 mg tablet 50 mg PO DAILY 5 days #5 tab s 02/16/25 albuterol sulfate 90 mcg/actuation 2 inh inhalation Q4 H PRN shortness 03/29/25 breath activated powder inhaler of breath #1 ea prednisone 50 mg tablet 50 mg PO DAILY 5 days #5 tab s 03/29/25 Allergies Allergy/AdvReac Type Severity Reaction Status Date / Time Seasonal Allergies Allergy Mild Nasal Verified 03/29/25 02:46 congestion Review of Systems Review of Systems: as per HPI, full review of systems performed and negative but for the above mentioned pertinent positives and negatives. [facility] Past Medical History Medical History Asthma Social History Social History Alcohol intake: never Patient Tobacco Use Status: Never used Tobacco Smoked in Last 30 Days: No Use of substances other than those prescribed or required for medical reasons: No Advance Directives: No Advance Directives Information Provided: No Do you have a plan to hurt others: No Plan Patient : No Physical Exam Exam: Exam: GENERAL: Ill-appearing, moderate respiratory distress. SKIN: Normal skin color for ethnicity, warm, dry, no rashes noted. HEENT:? Normocephalic, atraumatic, no stridor, EOMI. NECK: Soft, supple, full ROM, midline structures nontender, no step-offs, no deformities, no lymphadenopathy. CHEST: Heart regular tachycardia, symmetric chest rise and fall. PULMONARY: Diffuse wheezes throughout, tachypnea, poor air movement bilaterally, moderate respiratory distress. ABDOMINAL: Soft, nontender, quiet bowel sounds in all quadrants. : Deferred. MUSCULOSKELETAL: Normal tone, full range of motion, no deformities, no peripheral edema. NEURO: Alert and oriented to person, CN II through XII intact, no focal neurologic deficits.? PSYCHIATRIC: Anxious affect, appropriate demeanor. Vital Signs: Vital Signs: Last Vital Signs Temp 98.1 F 03/29/25 03:55 Pulse 91 03/29/25 03:55 Resp 15 03/29/25 03:55 BP 141/79 H 03/29/25 03:55 Pulse Ox 95 03/29/25 03:55 O2 Del Method Room Air 03/29/25 03:55 BMI result Body Mass Index 39.0 Medications Administered Discontinued Medications Generic Name Dose Route Start Last Admin Trade Name Freq PRN Reason Stop Dose Admin Albuterol Sulfate 2.5 mg/ 0 mg 03/29/25 02:56 03/29/25 03:10 Albuterol/Ipratropium 3 ml INHALE 03/29/25 02:57 5 dose ONCE ONE Administration Prednisone 50 mg 03/29/25 03:29 03/29/25 03:46 Prednisone 10 Mg Tablet PO 03/29/25 03:30 50 mg ONCE ONE Administration Medical Decision Making Medical Decision Making [facility] Narrative: Patient presents today with chief complaint of shortness of breath. Differential diagnosis includes, but is not limited to, upper respiratory infection, pneumonia, COPD exacerbation, asthma exacerbation, CHF, pneumothorax, pleural effusion, pulmonary embolism, ACS. Broad-based work-up will be initiated to evaluate for etiology of patient's symptoms. Clinical picture today's consistent with an asthma exacerbation. Patient's flu and COVID swab were negative. She is feeling significantly improved after a single DuoNeb. Plan for discharge home with prednisone and albuterol. Discussed importance of follow-up as well as strict return precautions. Discharged home stable condition. Differential Diagnosis Differential Diagnoses: The differential diagnosis associated with the presentation includes (as above) Admission/Observation Consideration of admission/observation: Escalation of care including admission/observation considered Lab Data [facility] Lab Attestation statement: I reviewed the patient's lab results. Labs: Lab Results 03/29/25 Range/Units 02:49 Influenza Type A (PCR) NEGATIVE (Negative) Influenza Type B (PCR) NEGATIVE (Negative) RSV RNA Qual (PCR) NEGATIVE (Negative) SARS-CoV-2 RNA (RT-PCR) NEGATIVE (Negative) Independent Historian Clinical information obtained from an independent historian. History obtained from or confirmed by: EMS External Record Review External record reviewed: Inpatient record Prescription Management I considered prescription management with: Other (albuterol, steriods) Chronic Conditions Patient?s care impacted by: Other (asthma) Discharge Plan Discharge Clinical Impression: Asthma with acute exacerbation Patient Disposition: Home, Self-Care Instructions: Asthma (ED) Additional Instructions: Take steroids for the next 5 days. Refill your albuterol inhaler as soon as possible. Return to the emergency department if you develop any new or worsening symptoms including: Worsening shortness of breath despite medications, fevers greater than 100?, inability to tolerate food or drink, any new symptom that concerns you. Call 911 with any medical emergency. Prescriptions: New prednisone 50 mg tablet 50 mg PO DAILY 5 Days Qty: 5 0RF albuterol sulfate 90 mcg/actuation aerosol powdr breath activated 2 inh inhalation Q4H PRN (Reason: shortness of breath) Qty: 1 0RF No Action albuterol sulfate 90 mcg/actuation aerosol powdr breath activated 2 inh inhalation Q4-6H PRN (Reason: shortness of breath or wheezing) Qty: 1 0RF albuterol sulfate 90 mcg/actuation aerosol powdr breath activated 2 inh inhalation Q4-6H PRN (Reason: shortness of breath or wheezing) Qty: 1 0RF prednisone 20 mg tablet 20 mg PO DAILY 4 Days Qty: 4 0RF albuterol sulfate 90 mcg/actuation aerosol powdr breath activated 2 inh inhalation Q4-6H PRN (Reason: shortness of breath or wheezing) Qty: 1 0RF prednisone 20 mg tablet 40 mg PO DAILY 5 Days Qty: 10 0RF albuterol sulfate [ProAir HFA] 90 mcg/actuation HFA aerosol inhaler 2 puff inhalation Q4-6H PRN (Reason: shortness of breath or wheezing) Qty: 8.5 1RF prednisone 50 mg tablet 50 mg PO DAILY Qty: 4 0RF prednisone 20 mg tablet 40 mg PO DAILY 4 Days Qty: 8 0RF albuterol sulfate 90 mcg/actuation HFA aerosol inhaler 2 puff inhalation QID PRN (Reason: shortness of breath or wheezing) Qty: 6.7 0RF budesonide-formoterol 80-4.5 mcg/actuation HFA aerosol inhaler 1 inh inhalation BID Qty: 10.2 0RF Rx Instructions: rinse mouth after immediately after use cephalexin 500 mg capsule 500 mg PO BID 10 Days Qty: 19 0RF amoxicillin-pot clavulanate 875-125 mg tablet 1 tab PO Q12H Qty: 20 0RF ibuprofen 600 mg tablet 600 mg PO Q6H PRN (Reason: pain) Qty: 20 0RF prednisone 20 mg tablet 40 mg PO DAILY Qty: 10 0RF prednisone 50 mg tablet 50 mg PO DAILY 5 Days Qty: 5 0RF albuterol sulfate 90 mcg/actuation aerosol powdr breath activated 2 inh inhalation Q4H PRN (Reason: shortness of breath) Qty: 1 0RF Interventions: ED Discharge Assessment Last Done: 03/29/25 03:55 Discharge Date/Time: 03/29/25 03:56 Print Language: [place] Leone[place]
[2025-03-29 03:55] VITALS: BP 141/79; PULSE 91; RESP 15; TEMP 36.7; O2SAT 95
== END 2025-03-29 03:56 | disposition home or self-care (01) ==
PROVIDERS: Emergency Provider Emergency Medicine
DX: J45.901 Unspecified asthma with (acute) exacerbation (principal)
CPT/HCPCS: 87637; 94640; 99284

== ENCOUNTER 2025-05-16 16:19 | Emergency (ER) | payer MEDICAID, SELFPAY ==
[2025-05-16 16:28] VITALS: BP 131/81; PULSE 116; RESP 18; TEMP 36.9; O2SAT 94; BMI 34.9
[2025-05-16 16:33] VITALS: BP 131/81; PULSE 116; RESP 18; TEMP 36.9; O2SAT 94
--- NOTE | 2025-05-16 17:07 | ED_ITS ---
HPI - Asthma General Chief Complaint: Asthma Stated Complaint: diff breathing, asthma Time Seen by Provider: 05/16/25 16:26 History of Present Illness HPI Narrative: Patient is a 20-year-old female presented today with coughing congestion ran out of her asthma inhaler 2 days prior. Continued to have wheezing. Got a DuoNeb in route. Patient from home. Have not been intubated in the past. Has not been admitted to the hospital. Related Data Previous Rx's ?Medication ?Instructions ?Recorded albuterol sulfate 90 mcg/actuation 2 inh inhalation Q4 -6H PRN 09/14/21 breath activated powder inhaler shortness of breath or wheezing #1 ea albuterol sulfate 90 mcg/actuation 2 inh inhalation Q4 -6H PRN 02/04/22 breath activated powder inhaler shortness of breath or wheezing #1 ea prednisone 20 mg tablet 20 mg PO DAILY 4 days #4 tab s 02/04/22 albuterol sulfate 90 mcg/actuation 2 inh inhalation Q4 -6H PRN 08/10/22 breath activated powder inhaler shortness of breath or wheezing #1 ea prednisone 20 mg tablet 40 mg (2 x 20 mg) PO DAILY 5 days 08/10/22 #10 tabs albuterol sulfate 90 mcg/actuation 2 puff inhalation Q 4-6H PRN 01/25/23 aerosol inhaler (ProAir HFA) shortness of breath or wh eezing #8.5 grams prednisone 50 mg tablet 50 mg PO DAILY #4 tabs 01/25 cephalexin 500 mg capsule 500 mg PO BID 10 days #19 ca ps 01/05/24 albuterol sulfate 90 mcg/actuation 2 puff inhalation Q ID PRN 01/30/24 aerosol inhaler shortness of breath or wheez ing #6.7 grams budesonide-formoterol HFA 80 1 inh inhalation BID #10. 2 grams 01/30/24 mcg-4.5 mcg/actuation aerosol inhaler prednisone 20 mg tablet 40 mg (2 x 20 mg) PO DAILY 4 days 01/30/24 #8 tabs amoxicillin 875 mg-potassium 1 tab PO Q12H #20 tabs clavulanate 125 mg tablet ibuprofen 600 mg tablet 600 mg PO Q6H PRN pain #20 t abs 11/09/24 prednisone 20 mg tablet 40 mg (2 x 20 mg) PO DAILY # 10 tabs 02/11/25 albuterol sulfate 90 mcg/actuation 2 inh inhalation Q4 H PRN shortness 02/16/25 breath activated powder inhaler of breath #1 ea prednisone 50 mg tablet 50 mg PO DAILY 5 days #5 tab s 02/16/25 albuterol sulfate 90 mcg/actuation 2 inh inhalation Q4 H PRN shortness 03/29/25 breath activated powder inhaler of breath #1 ea prednisone 50 mg tablet 50 mg PO DAILY 5 days #5 tab s 03/29/25 Allergies Allergy/AdvReac Type Severity Reaction Status Date / Time Seasonal Allergies Allergy Mild Nasal Verified 05/16/25 16:30 congestion Review of Systems Review of Systems: Positive coughing positive shortness of breath. Positive wheezing. Symptoms started after not having her inhaler Yes all other systems are reviewed and are negative [facility] Past Medical History Attestation statement: The following information was validated with the patient. Medical History Asthma Social History Social History Alcohol intake: never Patient Tobacco Use Status: Never used Tobacco Smoked in Last 30 Days: No Use of substances other than those prescribed or required for medical reasons: No Advance Directives: No Advance Directives Information Provided: No Physical Exam Exam: Exam: Appearance: Alert. Oriented X3. No acute distress. Eyes: Pupils equal, round and reactive to light. ENT: Pharynx normal. Neck: Normal inspection. Neck supple. No lymph nodes noted. No crepitus CVS: Normal heart rate and rhythm. Pulses normal. Normal S1 and S2 Respiratory: No respiratory distress. Breath sounds normal. No Wheezing. No rales Abdomen: Soft and nontender. No rigidity. No distention. good BS x4 Skin: Skin warm and dry. Normal skin color. Normal skin turgor. Extremities: No lower extremity edema. Neurovascular intact to all extremities. No Lacerations. No Rash Neuro: Oriented X 3. No motor deficit. No sensory deficit. Moving all extermities. No slurred speech Vital Signs: Vital Signs: Last Vital Signs Temp 98.5 F 05/16/25 18:31 Pulse 96 05/16/25 18:31 Resp 16 05/16/25 18:31 BP 140/74 H 05/16/25 18:31 Pulse Ox 95 05/16/25 18:31 O2 Del Method Room Air 05/16/25 18:31 BMI result Body Mass Index 34.9 Medications Administered Discontinued Medications Generic Name Dose Route Start Last Admin Trade Name Freq PRN Reason Stop Dose Admin Albuterol Sulfate 2 puff 05/16/25 17:06 05/16/25 17:19 Albuterol Sulfate 90 Mcg 8 Gm Inhaler INHALE 05/16/25 17:07 2 puff ONCE ONE Administration Prednisone 60 mg 05/16/25 17:06 05/16/25 17:19 Prednisone 20 Mg Tablet PO 05/16/25 17:07 60 mg ONCE ONE Administration Medical Decision Making Medical Decision Making [facility] Narrative: COVID flu RSV was negative. Patient tolerating p.o.. No acute distress. Lungs are moving good air with minimal wheezing. Steroid given, albuterol given O2 sats 90% on room air ambulates well will discharge patient home close follow-up on an outpatient basis Differential Diagnosis Differential Diagnoses: The differential diagnosis associated with the presentation includes Asthma Admission/Observation Consideration of admission/observation: Escalation of care including admission/observation considered Lab Data [facility] Lab Attestation statement: I reviewed the patient's lab results. Labs: Lab Results 05/16/25 Range/Units 17:19 Influenza Type A (PCR) NEGATIVE (Negative) Influenza Type B (PCR) NEGATIVE (Negative) RSV RNA Qual (PCR) NEGATIVE (Negative) SARS-CoV-2 RNA (RT-PCR) NEGATIVE (Negative) Prescription Management Steroid was given no need for antibiotics Chronic Conditions Long history of asthma Social Determinants Patient?s care significantly limited by Social Determinants of Health including: Problems related to primary support group Discharge Plan Discharge Clinical Impression: Asthma with acute exacerbation Patient Disposition: Home, Self-Care Instructions: Asthma (DC) Prescriptions: No Action albuterol sulfate 90 mcg/actuation aerosol powdr breath activated 2 inh inhalation Q4-6H PRN (Reason: shortness of breath or wheezing) Qty: 1 0RF albuterol sulfate 90 mcg/actuation aerosol powdr breath activated 2 inh inhalation Q4-6H PRN (Reason: shortness of breath or wheezing) Qty: 1 0RF prednisone 20 mg tablet 20 mg PO DAILY 4 Days Qty: 4 0RF albuterol sulfate 90 mcg/actuation aerosol powdr breath activated 2 inh inhalation Q4-6H PRN (Reason: shortness of breath or wheezing) Qty: 1 0RF prednisone 20 mg tablet 40 mg PO DAILY 5 Days Qty: 10 0RF albuterol sulfate [ProAir HFA] 90 mcg/actuation HFA aerosol inhaler 2 puff inhalation Q4-6H PRN (Reason: shortness of breath or wheezing) Qty: 8. 5 1RF prednisone 50 mg tablet 50 mg PO DAILY Qty: 4 0RF prednisone 20 mg tablet 40 mg PO DAILY 4 Days Qty: 8 0RF albuterol sulfate 90 mcg/actuation HFA aerosol inhaler 2 puff inhalation QID PRN (Reason: shortness of breath or wheezing) Qty: 6.7 0RF budesonide-formoterol 80-4.5 mcg/actuation HFA aerosol inhaler 1 inh inhalation BID Qty: 10.2 0RF Rx Instructions: rinse mouth after immediately after use prednisone 50 mg tablet 50 mg PO DAILY 5 Days Qty: 5 0RF albuterol sulfate 90 mcg/actuation aerosol powdr breath activated 2 inh inhalation Q4H PRN (Reason: shortness of breath) Qty: 1 0RF cephalexin 500 mg capsule 500 mg PO BID 10 Days Qty: 19 0RF amoxicillin-pot clavulanate 875-125 mg tablet 1 tab PO Q12H Qty: 20 0RF ibuprofen 600 mg tablet 600 mg PO Q6H PRN (Reason: pain) Qty: 20 0RF prednisone 20 mg tablet 40 mg PO DAILY Qty: 10 0RF prednisone 50 mg tablet 50 mg PO DAILY 5 Days Qty: 5 0RF albuterol sulfate 90 mcg/actuation aerosol powdr breath activated 2 inh inhalation Q4H PRN (Reason: shortness of breath) Qty: 1 0RF Referrals: Valerie Danielson, FITNESS CLUB MANAGER [Primary Care Provider, Medical] - 05/18/25 Print Language: Syriac
[2025-05-16] MEDS: Albuterol Sulfate 90 MCG 8 GM INHALER 2 PUFF INHALE (17:19)
--- OUTSIDE RECORDS SUMMARY | 2025-05-16 17:28 | XMS_ITS | Encounter Summary ---
Author Organization [email or web address] Address [address] [facility] 7t [place] [address] Care Team Providers Care Apparel Rental Clerk Name Role Phone Kayley Looney DO Primary Care Provider [phone] [facility] Primary Care Provider Reason for Visit * Reason Comments Med Refill Encounter Details Date Type Department Care Team ([facility] Contact Info) Description 05/20/2023 Refill [facility] [address] [place], [place] [phone] Adelia Jalloh MD [address] [place], [place] [phone] Cough in adult; Moderate asthma with acute [...] as of this encounter Plan of Treatment Not on file documented as of this encounter Visit Diagnoses Diagnosis Cough in adult Moderate asthma with acute exacerbation, unspecified whether persistent documented in this encounter Care Teams Apparel Rental Clerk Relationship Specialty Start Date End Date Kayley Looney DO [address] [place], [place] [phone] PCP - General Pediatrics 02/11/13 09/03/23 [facility] DOCK ATTENDANT [address] [place] [address] PCP - General Family Medicine 09/04/23 Barbie Slade Scientific Systems AnalystToll Test Desk Worker 12/16/24 documented as of this encounter
--- OUTSIDE RECORDS SUMMARY | 2025-05-16 17:28 | XMS_ITS | Encounter Summary ---
Author Organization [employer] Address [address] [facility] 7t [place] [address] Care Team Providers Care Analytical Lab Analyst Name Role Phone [facility] Primary Care Provider [phone] Reason for Visit * Reason Onset Date Comments Returning Call 12/07/2024 Encounter Details Date Type Department Care Team ([facility] Contact Info) Description 12/07/2024 Telephone [facility] [address] [place], [place] [phone] [facility] [address] [place], [place] [phone] Returning Call Social History Tobacco Use Types [...] documented in this encounter Plan of Treatment Not on file documented as of this encounter Visit Diagnoses Not on filedocumented in this encounter Additional Health Concerns Assessment Noted Time PHQ-9 Depression Total Score: 0 10/08/19 25 11:19 AM EDT documented as of this encounter Care Teams Analytical Lab Analyst Relationship Specialty Start Date End Date Valerie Danielson FNP [address] [place] [phone] PCP - General Family Medicine 09/04/23 Barbie Slade Salon DesignerMirror Fabrication Supervisor 12/16/24 documented as of this encounter
--- OUTSIDE RECORDS SUMMARY | 2025-05-16 17:28 | XMS_ITS | Clinical Summary ---
Author Organization [employer] Address [address] [facility] [address] [place] [address] Care Team Providers Care Brewing Technician Name Role Phone Valerie Danielson [facility] Primary Care Provider [phone] Allergies No known active allergies Medications fluticasone (Flovent) 110 MCG/ACT inhaler 2 inh via spacer 2 times per day every day 08/24/19 22 Active Sodium Fluoride 1.1 % gel Boerne with a pea size amount every night. [...] 23 Active Sodium Fluoride 1.1 % cream Boerne with a pea size amount of toothpaste morning and bedtime. Floss between teeth. Do not rinse. Spit out excess. 56 g 10 11/29/19 23 Active loratadine (Claritin) 10 MG tablet [...] to increase to twice daily 30 tablet 11 10/08/19 25 Active NIFEdipine XL (Procardia XL) 60 MG 24 hr tabletIndicatio ns:Primary hypertension Take 1 tablet (60 mg) by mouth Once per day. Do not crush, chew, or split. 30 tablet 11 5 12:14 PM EST 10/08/19 25 026 Active olmesartan (Benicar) 5 MG tabletIndicatio ns:Primary hypertension Take 1 tablet (5 mg) by mouth Once per day. 30 tablet 01/13/20 25 026 Active levonorgestrel- ethinyl estradiol (Aviane, Alesse, Lessina) [...] EVENING 90 tablet 3 01/26/20 25 Active albuterol (Ventolin HFA) 108 (90 Base) MCG/ACT inhalerIndicati ons:Moderate asthma with acute exacerbation, unspecified whether persistent INHALE 2 PUFFS BY MOUTH EVERY 4 TO 6 HOURS NEEDED FOR COUGH, WHEEZING, OR SHORTNESS OF BREATH ADMINISTER WITH SPACER 18 g 3 5 11:54 AM EST 04/05/20 25 Active Eye Itch Relief 0.035 % solution PLACE 1 DROP INTO THE AFFECTED EYE(S) TWICE DAILY (AT least 8 HOURS APART) NEEDED FOR ALLERGY SYMPTOMS 5 mL 5 5 11:54 AM EST 04/28/20 25 Active ketotifen (Zaditor) 0.025 % ophthalmic solution 1 drp by ophthalmic (eye) route 2 times per day ;administer at least 8 hours apart prn allergy symptoms 5 mL 5 03/27/20 23 025 Discontinued Active Problems Problem Noted Date Diagnosed [...] Anxiety 02/05/2013 Overview (10/08/2023): therapy through [facility]; student support counselor + panic attacks-->hydroxyzine PRN, fluoxetine, guainfaceine for ?ADHD Eczema 03/10/2012 Learning difficulty 03/10/2012 Body mass index, pediatric, greater than or equal to 95th percentile for age 0903/10/2012 Resolved Problems Problem Noted Date Diagnosed Date Resolved Date Depressive disorder 02/08/2016 10/08/19 24 Encounters Date Type Department Care Team Description 04/26/2025 Refill [facility] [address] [place] [address] Kayley Looney DO 04/05/2025 Refill [facility] [address] [place] [address] Valerie Danielson FNP Moderate asthma with acute exacerbation, unspecified whether persistent 03/29/2025 Orders Only GENERIC EXTERNAL DATA DEPARTMENT Provider, Generic External Data 03/23/2025 9:00 AM EDT Office Visit [facility] [address] [place] [address] Beatriz Mckeon DMD 03/16/2025 9:00 AM EDT Office Visit [facility] [address] [place] [address] Beatriz Mckeon DMD 03/04/2025 Telephone [facility] [address] [place] [address] Valerie Danielson FNP chart prep 02/16/2025 8:30 AM EDT Office Visit [facility] [address] [place] [address] Beatriz Mckeon DMD 02/16/2025 Orders Only GENERIC EXTERNAL DATA DEPARTMENT Provider, Generic External Data from Last 3 Months Immunizations Immunization Administration [...] 01/12/2025 2:59 PM EDT Plan of Treatment Health Maintenance Due Date Last Done Comments Chlamydia and Gonorrhea Screening 2004 HIV Screening 2004 Disability Screening 2004 [...] 05/31/2023 11/28/2022 Dental X-Ray: Bitewings 11/30/2023 11/28/2022 Dental X-Ray: Full Mouth 04/04/2024 04/03/2021 SDOH Screening 09/10/2024 09/11/2023 Pap Smear 01/26/2025 DTaP/Tdap/Td Vaccines (7 - Td or Tdap) 02/04/2025 02/04/2015, 09/15/2008, 07/10/2005, Additional history exists COVID-19 Vaccine ( - 2024- season) 2025 09/11/2023, 11/13/2020, 10/22/2020 Influenza Vaccine (#1) 2025 , 08/07/2019, 05/29/2018, Additional history exists Depression Screening 10/07/2025 10/07/2024, 10/08/19 25 Tobacco Screening 03/23/2026 03/23/2025 Lipid Panel 09/10/2028 09/11/2023, 06/0 01/2023, 02/27/2021 [...] Procedure Name Priority Date/Time Associated Diagnosis Comments SARS COV2/INFLUENZA A/B AND RSV RNA QL NAAT Routine 03/29/2025 2:49 AM EDT NO CHARGE, UNSPECIFIED ORTHODONTIC PROCEDURE, BY REPORT Routine 03/23/2025 9:00 AM EDT CASE PRESENTATION, DETAILED AND EXTENSIVE TREATMENT PLANNING Routine 03/16/2025 9:00 AM EDT ORTHODONTIC RETENTION Routine 03/16/2025 9:00 AM EDT NO CHARGE, PERIODIC ORTHODONTIC TREATMENT VISITS Routine 02/16/2025 8:30 AM EDT SARS COV2/INFLUENZA A/B AND RSV RNA QL NAAT Routine 02/16/2025 5:43 AM EDT LIPID PANEL, STANDARD Routine 09/11/2023 3:53 PM EDT Elevated blood pressure reading PROPHYLAXIS - ADULT Routine 11/28/2022 1 1:00 AM EDT BITEWINGS - 4 RADIOGRAPHIC IMAGES Routine 11/28/2022 11:00 AM EDT PERIODIC ORAL EVALUATION - ESTABLISHED PATIENT Routine 11/28/2022 11:00 AM EDT from Last 3 Months or Most Recently Relevant to Health Maintenance Results * SARS-CoV-2 RNA, Influenza A/B, and RSV RNA, Ql NAAT (03/29/2025 2:49 AM EDT) Only the most recent of2 resultswithin the time period is included. Influenza A PCR NEGATIVE Negative [facility] Influenza B PCR NEGATIVE Negative [facility] Resp Syncy Virus RNA Qual PCR NEGATIVE Negative [facility] SARS COV2 PCR NEGATIVE Negative [facility] Comment:All test results mus t be correlated with clinical findings.Negative results do not preclude SARS-CoV2, influenza Avirus, influenza B virus and/or RSV infectionand should not be used as the sole basis for treatment orother patient management decisions. Negative results must becombined with clinical observations, patient history, andepidemiological information.This test has not been evaluated for monitoring treatment ofinfection.This test has been authorized by the FDA under an EmergencyUse Authorization (EUA) for use by authorized laboratories.Testing performed on the [facility] GeneXpert utilizingreal-time RT-PCR.All SARS CoV2 and positive influenza A/B results arereported to [facility]. 03/29/2025 2:49 AM EDT 03/29/2025 2:52 AM EDT us Generic External Data Provider LAB MICROBIOLOGY - GENERAL ORDERABLES Final Result [facility] [address] [place] [phone] * (ABNORMAL) Lipid Panel, Standard (09/11/2023 3:53 PM EDT) Triglycerides 247(H) <150 mg/dL [facility] Comment:Desirable Triglyceri de: less than 90 mg/dLBorderline High Triglyceride: 90-129 mg/dLHigh Triglyceride: greater than 130 mg/dL Cholesterol 154 <200 mg/dL [facility] Comment:Desirable Cholestero l: less than 170 mg/dLBorderline High Cholesterol: 170-199 mg/dLHigh Cholesterol: greater than 200 mg/dL LDL Cholesterol Calculated 71 <100 mg/dL [facility] Comment:Desirable LDL: less than 110 mg/dLBorderline LDL: 110-129 mg/dLHigh LDL: greater than or equal to 130 mg/dL HDL Cholesterol 34(L) >40 mg/dL [facility] Comment:Desirable HDL: great er than 45 mg/dLBorderline HDL: 40-45 mg/dLLow HDL: less than 40 mg/dL Note: This HDL assay may give artificially low results in patients with liver disease. Blood Venous blood specimen / Unknown 09/11/2023 3:53 PM EDT 09/11/2023 5:18 PM EDT [facility]LOOD ORDERABLES Final Re sult [facility] [address] [place] [address] [phone] from Last 3 Months or Most Recently Relevant to Health Maintenance Insurance [place] AD[place] Care Teams Brewing Technician Relationship Specialty Start Date End Date Valerie Danielson FNP [address] [place] [address] PCP - General Family Medicine 09/04/23 Barbie Slade Property AdministratorModel Maker Firearms 12/16/24
--- OUTSIDE RECORDS SUMMARY | 2025-05-16 17:28 | XMS_ITS | Encounter Summary ---
Author Organization [employer] Address [address] [facility] 7t [place] [address] Care Team Providers Care Washer Engineer Name Role Phone Kayley Looney DO Primary Care Provider [phone] [facility] Primary Care Provider [phone] Reason for Visit * Reason Onset Date Comments Med Refill 04/26/2023 Encounter Details Date Type Department Care Team ([facility] st Contact Info) Description 04/26/2023 Refill [facility] [address] [place] [address] Kayley Looney DO [address] [place], [place] [phone] Cough in adult; Moderate asthma with acute [...] Base) MCG/ACT inhaler to be sent to [facility] pharmacy documented in this encounter Plan of Treatment Not on file documented as of this encounter Visit Diagnoses Diagnosis Cough in adult Moderate asthma with acute exacerbation, unspecified whether persistent documented in this encounter Care Teams Washer Engineer Relationship Specialty Start Date End Date Kayley Looney DO [address] [place] [address] PCP - General Pediatrics 02/11/13 09/03/23 [place]erie FNP [address] [place] [address] PCP - General Family Medicine 09/04/23 Barbie Slade Limnology TeacherCrystal Evaluator 12/16/24 documented as of this encounter
--- OUTSIDE RECORDS SUMMARY | 2025-05-16 17:28 | XMS_ITS | Encounter Summary ---
Author Organization [employer] Address [address] [facility] [address]t [place] [address] Care Team Providers Care Family Preservation Worker Name Role Phone Valerie Danielson SHIM PLUG CUTTER Primary Care Provider [phone] Reason for Visit * Reason Comments Med Refill Encounter Details Date Type Department Care Team ([facility] st Contact Info) Description 09/27/2023 Refill [facility] [address] [place], [place] [phone] Kayley Looney DO [address] [place], [place] [phone] Cough in adult; Moderate asthma with acute [...] documented as of this encounter Care Teams Family Preservation Worker Relationship Specialty Start Date End Date Valerie Danielson FNP [address] [place] [phone] PCP - General Family Medicine 09/04/23 Barbie Slade Route Delivery ManagerIndustrial Editor 12/16/24 documented as of this encounter
--- OUTSIDE RECORDS SUMMARY | 2025-05-16 17:28 | XMS_ITS | Encounter Summary ---
Author Organization [employer] Address [address] [facility] 7t [place] [address] Care Team Providers Care Passenger Service Representative Name Role Phone DilciamerissadoeKayley Primary Care Provider [phone] [facility] Primary Care Provider [phone] Encounter Details Date Type Department Care Team ([facility] st Contact Info) Description 05/09/2022 Abstract [facility] [address] [facility] [place], [place] [phone] Dental, Provider, DDS Social History Tobacco Use [...] on file documented as of this encounter Procedures Procedure [...] on filedocumented in this encounter Care Teams Passenger Service Representative Relationship Specialty Start Date End Date Kayley Looney DO [address] [place] [address] PCP - General Pediatrics 02/11/13 09/03/23 [place] FNP [address] [place] [address] PCP - General Family Medicine 09/04/23 Barbie Slade Teradata DeveloperSoap Grinder 12/16/24 documented as of this encounter
--- OUTSIDE RECORDS SUMMARY | 2025-05-16 17:28 | XMS_ITS | Encounter Summary ---
Author Organization [employer] Address [address] [facility] [address] [facility] [address]t [place] [address] Care Team Providers Care Cleaner Touch Up Worker Name Role Phone DilciaKayley alaniz Primary Care Provider [facility] Primary Care Provider [phone] Encounter Details Date Type Department Care Team ([facility] st Contact Info) Description 05/17/2022 Orders Only [facility] [address] [place], [place] [phone] Adelia Jalloh MD [address] [place], [place] [phone] Mild intermittent asthma, unspecified whether complicated (Primary [...] (Lucas) (08/10/2022 8:56 PM EST) IDNOW SERIAL# [id number] [facility] Influenza A Negative Negative [facility] Influenza B2 Negative Negative [facility] Influenza A B2 Note See Note [facility] Comment:The Lucas ID NOW In [...] LAB MICROBIOLOGY - GENERAL ORDERABLES Final Result [facility] [address] [place] [phone] * COVID-19 ID NOW (LUCAS) (08/10/2022 8:56 PM EST) IDNOW SERIAL# [id number] [facility] COVID-19 TEST Negative Negative [facility] COVID-19 NOTE See Note [facility] Comment: Results are for the identification of SARS-CoV2 RNA. TheSARS-CoV2 RNA is generally detectable in respiratory samplesduring the acute phase of infection. Positive results areindicative of the presence of SARS-CoV-2 RNA; clinicalcorrelation with patient history and other diagnosticinformation is necessary to determine patient infectionstatus. Positive results do not rule out bacterial infectionor co- infection with other viruses.Testing facilities within the [facility] and itsterritories are required to report [...] use by authorized laboratories.Testing performed on the Nor1 NOW utilizing NAAT. 08/10/2022 8:56 PM EST 08/10/2022 9:04 PM EST [facility] Exter nal Provider LAB MOLECULAR DIAGNOSTICS ORDERABLES Final Result Performing Organization Address [facility] Co de Phone Number [facility] [address] [place] [address] [phone] * Magnesium (08/10/2022 8:56 PM EST) Magnesium 1.7 1.6 - 2.6 mg/dL [facility] 08/10/2022 8:56 PM EST 08/10/2022 9:04 PM EST [facility] External Provider LAB BLO OD ORDERABLES Final Result Performing Organization Address [facility] Co de Phone Number [facility] [address] [place] [address] [phone] * (ABNORMAL) Comprehensive Metabolic Panel (08/10/2022 8:56 PM EST) Sodium 139 135 - 145 mmol/L [facility] Potassium 3.4 3.3 - 5.1 mmol/L [facility] Chloride 109(H) 96 - 108 mmol/L [facility] Carbon Dioxide 21(L) 22 - 29 mmol/L [facility] Anion Gap 12 12 - 20 [facility] Urea Nitrogen (BUN) 12 9 - 16 mg/dL [facility] Creatinine, Serum 0.77 0.5 - 1.4 mg/dL [facility] Creatinine Clr Calc Pharmacy TNP [facility] Comment:Cannot be calculated ; patient is less than 19 years old. Estimated Glomerular Filt Rate >60 [facility] Comment:NOTE: For -Am erican individuals, multiply the result by 1.210.Chronic Kidney Disease: Estimated GFR < 60 mL/min/1.62u1Yktmmj Kidney Disease: Estimated GFR < 15 mL/min/1.73m2 Glucose 103 60 - 115 mg/dL [facility] Calcium 9.3 8.4 - 10.2 mg/dL [facility] Bilirubin, Total 0.4 0.0 - 1.0 mg/dL [facility] Aspartate Amino Transferase 17 5 - 31 U/L [facility] Alanine Aminotransferase 17 0 - 31 U/L [facility] Total Protein 7.4 6.5 - 8.0 g/dL [facility] Albumin Level 4.3 3.5 - 5.0 g/dL [facility] Alkaline Phosphatase 78 39 - 117 U/L [facility] 08/10/2022 8:56 PM EST 08/10/2022 9:04 PM EST [facility] External Provider LAB BLO OD ORDERABLES Final Result [facility] [address] [place] [phone] * (ABNORMAL) CBC auto differential (08/10/2022 8:56 PM EST) White Blood Count 11.1(H) 4.8 - 10.8 X10*3/uL [facility] Red Blood Count 4.99 4.20 - 5.50 X10*6/uL [facility] Hemoglobin 12.9 12.0 - 16.0 g/dl [facility] Hematocrit 38.9 37.0 - 47.0 % [facility] Mean Corpuscular Volume 78.0(L) 80.0 - 98.0 fL [facility] Mean Corpuscular Hemoglobin 25.9(L) 27.0 - 33.0 pg [facility] Mean Corpuscular HGB Conc 33.2 31.0 - 35.0 g/dl [facility] Red Cell Distribution Width 13.4 11.0 - 16.0 % [facility] Platelet Count 351 160 - 400 X10*3/uL [facility] Mean Platelet Volume 9.1(L) 9.4 - 12.3 fL [facility] Neutrophils Percent Auto 61.2 45 - 73 % [facility] Imm Gran Pct Auto 0.3 0.0 - 0.4 % [facility] Lymphocytes Percent Auto 24.3 20 - 40 % [facility] Monocytes Percent Auto 6.4 2 - 11 % [facility] Eosinophils Percent Auto 6.6(H) 0 - 4 % [facility] Basophils Percent Auto 1.2 0 - 2 % [facility] NRBC Pct Auto 0.0 0.0 - 0.2 /100WBC [facility] Neutrophils Absolute Auto 6.8 2.0 - 8.3 x10*3/uL [facility] Imm Gran Abs Auto 0.03 0.00 - 0.03 X10*3/uL [facility] Lymphocytes Absolute Auto 2.7 1.2 - 4.9 X10*3/uL [facility] Monocytes Absolute Auto 0.7 0.1 - 1.2 X10*3/uL [facility] Eosinophils Absolute Auto 0.7(H) 0.0 - 0.4 X10*3/uL [facility] Basophils Absolute Auto 0.1 0.0 - 0.2 X10*3/uL [facility] NRBC Abs Auto 0.000 0.0 - 0.012 X10*3/uL [facility] 08/10/2022 8:56 PM EST 08/10/2022 9:04 PM EST us [facility] External Provider LAB BLO OD ORDERABLES Final Result [facility] [address] [place] [phone] documented in this encounter Visit Diagnoses Diagnosis Mild intermittent asthma, unspecified whether complicated- Primary documented in this encounter Care Teams Cleaner Touch Up Worker Relationship Specialty Start Date End Date Kayley Looney DO [address] [place] [address] PCP - General Pediatrics 02/11/13 09/03/23 BoelusValerie FNP [address] [place] [address] PCP - General Family Medicine 09/04/23 Barbie Slade Bar StaffZinc Plating Machine Operator 12/16/24 documented as of this encounter
--- OUTSIDE RECORDS SUMMARY | 2025-05-16 17:28 | XMS_ITS | Encounter Summary ---
Author Organization [employer] Address [address] [facility] 7t [place] [address] Care Team Providers Care Homogenizer Operator Name Role Phone Valerie Danielson PAPERBOARD BOXES ESTIMATOR Primary Care Provider [phone] Reason for Visit * Reason Comments Med Refill Encounter Details Date Type Department Care Team ([facility] st Contact Info) Description 06/18/2024 Refill [facility] [address] [place], [place] [phone] Alana Castillo MD [address] [place], [place] [phone] Moderate asthma with acute exacerbation, unspecified whether [...] documented as of this encounter Care Teams Homogenizer Operator Relationship Specialty Start Date End Date Valerie Danielson FNP [address] [place] [address] PCP - General Family Medicine 09/04/23 Barbie Slade Hand Cloth ExaminerTacking Machine Operator 12/16/24 documented as of this encounter
--- OUTSIDE RECORDS SUMMARY | 2025-05-16 17:28 | XMS_ITS | Encounter Summary ---
Author Organization [employer] Address [address] [facility] 7t [place] [address] Care Team Providers Care Infectious Disease Technician Name Role Phone [facility] Primary Care Provider [phone] Reason for Visit * Reason Comments Med Refill Encounter Details Date Type Department Care Team ([facility] st Contact Info) Description 10/21/2024 Refill [facility] [address] [place], [place] [phone] [facility] [address] [place] [address] Moderate asthma with acute exacerbation, unspecified whether [...] documented as of this encounter Care Teams Infectious Disease Technician Relationship Specialty Start Date End Date Valerie Danielson FNP [address] [place] [phone] PCP - General Family Medicine 09/04/23 Barbie Slade Epic Stork SpecialistsBird Sitter 12/16/24 documented as of this encounter
--- OUTSIDE RECORDS SUMMARY | 2025-05-16 17:28 | XMS_ITS | Encounter Summary ---
Author Organization [employer] Address [address] [facility] 7t [place] [address] Care Team Providers Care Cold Working Supervisor Name Role Phone [facility] Primary Care Provider [phone] Reason for Visit * Reason Comments Med Refill Encounter Details Date Type Department Care Team ([facility] st Contact Info) Description 10/31/2024 Refill [facility] MEDIC[facility] [address] [place], [place] [phone] [facility] [address] [place], [place] [phone] Moderate asthma with acute exacerbation, unspecified whether [...] documented as of this encounter Care Teams Cold Working Supervisor Relationship Specialty Start Date End Date Valerie Danielson FNP [address] [place] [address] PCP - General Family Medicine 09/04/23 Barbie Slade Wired Music OperatorAirport Skilled Maintenance Supervisor 12/16/24 documented as of this encounter
--- OUTSIDE RECORDS SUMMARY | 2025-05-16 17:28 | XMS_ITS | Encounter Summary ---
Author Organization [employer] Address [address] [facility] 7t h Floor [place] [phone] Care Team Providers Care [place] Laborer Name Role Phone Kayley Looney DO Primary Care Provider [phone] [facility] Primary Care Provider [phone] Reason for Visit * Reason Comments Med Refill Encounter Details Date Type Department Care Team ([facility] st Contact Info) Description 08/16/2023 Refill [facility] MED[facility] [address] [place], [place] [phone] Kayley Looney DO [address] [place], [place] [phone] Cough in adult; Moderate asthma with acute [...] persistent documented in this encounter Care Teams [place] Laborer Relationship Specialty Start Date End Date Kayley Looney DO [address] [place], [place] [phone] PCP - General Pediatrics 02/11/13 09/03/23 [facility], HOSPITAL SUPERINTENDENT [address] [place] [address] PCP - General Family Medicine 09/04/23 Barbie Slade Estate Planning DirectorWelding Machine Operator Arc 12/16/24 documented as of this encounter
--- OUTSIDE RECORDS SUMMARY | 2025-05-16 17:28 | XMS_ITS | Encounter Summary ---
Author Organization [employer] Address [address] [facility] [address] [place] [phone] Care Team Providers Care Ophthalmic Dispenser Name Role Phone Kayley Looney DO Primary Care Provider [phone] [facility] Primary Care Provider [phone] Reason for Visit * Reason Comments Med Refill Encounter Details Date Type Department Care Team ([facility] st Contact Info) Description 07/08/2023 Refill [facility] [address] [place], [place] [phone] Kayley Looney DO [address] [place], [place] [phone] Cough in adult; Moderate asthma with acute [...] persistent documented in this encounter Care Teams Ophthalmic Dispenser Relationship Specialty Start Date End Date Kayley Looney DO [address] [place], [place] [phone] PCP - General Pediatrics 02/11/13 09/03/23 [facility], DIRECTOR OF STUDENT AID [address] [place] [address] PCP - General Family Medicine 09/04/23 Barbie Slade Miner PlacerDevelopment Engineer 12/16/24 documented as of this encounter
[2025-05-16 18:28] LABS: Resp Syncy Virus RNA Qual PCR NEGATIVE (Negative); SARS COV2 PCR INHOUSE NEGATIVE (Negative)
[2025-05-16 18:31] VITALS: BP 140/74; PULSE 96; RESP 16; TEMP 36.9; O2SAT 95
[2025-05-16 18:44] VITALS: BP 140/74; PULSE 96; RESP 16; TEMP 36.9; O2SAT 95
== END 2025-05-16 18:53 | disposition home or self-care (01) ==
PROVIDERS: Emergency Provider Emergency Medicine Emergency Medical Services; PCP Registered Nurse
DX: J45.901 Unspecified asthma with (acute) exacerbation (principal); R05.9 Cough, unspecified; Z03.818 Encounter for observation for suspected exposure to other biological agents ruled out; Z79.51 Long term (current) use of inhaled steroids
CPT/HCPCS: 87637; 99284

== ENCOUNTER 2025-06-11 12:54 | Emergency (ER) | payer MEDICAID, SELFPAY ==
--- OUTSIDE RECORDS SUMMARY | 2025-06-07 10:45 | XMS_ITS | Encounter Summary ---
Author Organization [employer] Address [address] [facility] [address] [facility] [address] 7[address] [place] [address] Care Team Providers Care Rack Room Worker Name Role Phone Valerie Danielson SALES APPLICATIONS ENGINEER Primary Care Provider Encounter Details Date Type Department Care Team (Late st Contact Info) Description 06/07/2025 10:45 AM EST Office Visit [facility] OPTOMETRY [address] [place], [place] [phone] Bryant, Anali, OD [address] [place], [place] [phone] Myopia of both eyes (Primary Dx) Social History Tobacco Use Types [...] AM EDT documented as of this encounter Progress Notes * Anali Hurtado OD - 06/07/2025 10:45 AM EST MH glasses were dispensed. documented in this encounter Plan of Treatment Upcoming Encounters Date Type Department Care Team (Late st Contact Info) Description 10/15/2025 9:00 AM EDT Office Visit [facility] OPTOMETRY [address] [place] [address] Anali Hurtado, OD [address] [place] [address] documented as of this encounter Visit Diagnoses Diagnosis Myopia of both eyes- Primary documented in this encounter Additional Health Concerns Assessment Noted Time PHQ-9 Depression Total Score: 0 10/08/19 11:19 AM EDT documented as of this encounter Care Teams Rack Room Worker Relationship Specialty Start Date End Date Valerie Danielson FNP [address] [place] [address] PCP - General Family Medicine 09/04/23 Barbie Slade Negotiator SalesDirector Of Cath Lab 12/16/24 documented as of this encounter
--- NOTE | ~2025-06-11 | XR_ITS ---
EXAMINATION: XR CHEST CLINICAL INFORMATION: shortness of breath COMPARISON: None available. Chest x-ray 03/02/2025 TECHNIQUE: Frontal view of the chest was obtained. FINDINGS: No significant abnormality is noted involving the heart, lungs, mediastinum, bony thorax or soft tissues. XR/XR chest 1V IMPRESSION: Unremarkable chest examination. Electronically signed by: Rigo Rhodes MD 06/11/2025 01:55 PM [facility] [place]
--- NOTE | 2025-06-11 13:00 | ED_ITS ---
HPI - General Adult General Chief complaint: Asthma Stated complaint: SOB ASTHMA Time Seen by Provider: 06/11/25 12:56 History of Present Illness ED Provider: Ava BONILLA narrative: The patient is a 20-year-old female with a history of asthma and seasonal allergies who says that she was at home watching TV today when she began to feel short of breath. She asked a family member to get her nebulizer machine. She tried using her nebulizer machine but she felt that she was getting worse and so an ambulance was called. Paramedics found the patient in what they felt was significant respiratory distress consistent with a asthma. The patient was given an IV and was given IV methylprednisolone and IV magnesium. The patient was also given bronchodilator nebulizer treatment and was ultimately placed on a CPAP machine to assist with breathing. The patient says that this episode feels similar to previous episodes of asthma exacerbation. Related Data Previous Rx's ?Medication ?Instructions ?Recorded albuterol sulfate 90 mcg/actuation 2 inh inhalation Q4 -6H PRN 09/14/21 breath activated powder inhaler shortness of breath or wheezing #1 ea albuterol sulfate 90 mcg/actuation 2 inh inhalation Q4 -6H PRN 02/04/22 breath activated powder inhaler shortness of breath or wheezing #1 ea prednisone 20 mg tablet 20 mg PO DAILY 4 days #4 tab s 02/04/22 albuterol sulfate 90 mcg/actuation 2 inh inhalation Q4 -6H PRN 08/10/22 breath activated powder inhaler shortness of breath or wheezing #1 ea prednisone 20 mg tablet 40 mg (2 x 20 mg) PO DAILY 5 days 08/10/22 #10 tabs albuterol sulfate 90 mcg/actuation 2 puff inhalation Q 4-6H PRN 01/25/23 aerosol inhaler (ProAir HFA) shortness of breath or wh eezing #8.5 grams prednisone 50 mg tablet 50 mg PO DAILY #4 tabs 01/25 cephalexin 500 mg capsule 500 mg PO BID 10 days #19 ca ps 01/05/24 albuterol sulfate 90 mcg/actuation 2 puff inhalation Q ID PRN 01/30/24 aerosol inhaler shortness of breath or wheez ing #6.7 grams budesonide-formoterol HFA 80 1 inh inhalation BID #10. 2 grams 01/30/24 mcg-4.5 mcg/actuation aerosol inhaler prednisone 20 mg tablet 40 mg (2 x 20 mg) PO DAILY 4 days 01/30/24 #8 tabs amoxicillin 875 mg-potassium 1 tab PO Q12H #20 tabs clavulanate 125 mg tablet ibuprofen 600 mg tablet 600 mg PO Q6H PRN pain #20 t abs 11/09/24 prednisone 20 mg tablet 40 mg (2 x 20 mg) PO DAILY # 10 tabs 02/11/25 albuterol sulfate 90 mcg/actuation 2 inh inhalation Q4 H PRN shortness 02/16/25 breath activated powder inhaler of breath #1 ea prednisone 50 mg tablet 50 mg PO DAILY 5 days #5 tab s 02/16/25 albuterol sulfate 90 mcg/actuation 2 inh inhalation Q4 H PRN shortness 03/29/25 breath activated powder inhaler of breath #1 ea prednisone 50 mg tablet 50 mg PO DAILY 5 days #5 tab s 03/29/25 azithromycin 250 mg tablet 250 mg PO DAILY 4 days #4 t abs 06/11/25 budesonide-formoterol HFA 160 2 puff inhalation BID #1 0.2 grams 06/11/25 mcg-4.5 mcg/actuation aerosol inhaler prednisone 20 mg tablet 20 mg PO DAILY #12 tabs 05/18 12/09 Allergies Allergy/AdvReac Type Severity Reaction Status Date / Time Seasonal Allergies Allergy Mild Nasal Verified 06/11/25 13:06 congestion Review of Systems 2 Review of Systems: Yes all other systems are reviewed and are negative PMFSH Past Medical History Medical History Asthma Social History Social History Alcohol intake: never Patient Tobacco Use Status: Never used Tobacco Physical Exam ED Vital Signs: Vital Signs - 24 hr 06/11/25 13:05 06/11/25 17:00 06/11/25 18:22 Temperature 97.8 F 98.1 F 98.3 F Pulse Rate 138 H 120 H 110 H Respiratory Rate 20 18 18 Blood Pressure 134/101 H 139/76 140/73 H Pulse Oximetry 96 94 98 Oxygen Delivery Method Oxymask Room Air Room Air BMI result Body Mass Index 37.3 Const Other: The patient is a 20-year-old female who was awake and alert. She arrived with a CPAP mask applied by paramedics. She looked fatigued but not in overt distress. Orientation/consciousness: patient oriented x3 HENMT Other: The face is symmetrical. Mucous membranes moist. Airway clear. Eyes Other: Pupils are round equal, conjunctivae are clear, extraocular movements intact General: appearance normal, both eyes and all related structures Neck Neck: Yes normal visual inspection, Yes full ROM and Yes no lymphadenopathy Chest Other: No leonides obvious increased work of breathing, no indrawing Resp Other: I felt the patient had diminished air entry throughout her lung llanes but I did not feel she had definite acute wheezing present. No crackles. Cardio Rate: tachycardic Rhythm: regular rhythm Heart sounds: S1 normal heart sound present, S2 normal heart sound present and Murmur heart sound present ( No murmur heard) GI Other: Abdomen is soft and nontender Skin Other: The skin is dry and unremarkable General skin exam: no rashes or lesions noted Neuro General: patient oriented x3, tone normal, moves all extremities, no focal motor deficits and CN's II-XI intact bilaterally Extrem Other: There is no calf swelling or tenderness. No asymmetry. No peripheral edema. Medications Administered Discontinued Medications Generic Name Dose Route Start Last Admin Trade Name Freq PRN Reason Stop Dose Admin Azithromycin 500 mg 06/11/25 17:38 06/11/25 18:20 Azithromycin 500 Mg Tablet PO 06/11/25 17:39 500 mg ONCE ONE Administration Sodium Chloride 1,000 mls @ 999 mls/hr 06/11/25 13:30 06/11/25 16:24 Ns IV 06/11/25 14:30 Infused .Q1H1M CASSIDY Infusion Prednisone 40 mg 06/11/25 17:38 06/11/25 18:20 Prednisone 20 Mg Tablet PO 06/11/25 17:39 40 mg ONCE ONE Administration Medical Decision Making Medical Decision Making MDM Narrative: the patient is a 20-year-old female with a history of asthma. She says that she has seasonal allergies. She says that she may have had some very mild respiratory symptoms over the last 2 days but was relatively asymptomatic when she was watching TV just prior to arrival and then became acutely short of breath. She tried to use a home nebulizer machine without improvement. Family called 911. Paramedics felt that she was in an acute asthmatic state and administered magnesium, methylprednisolone, bronchodilators, and a CPAP mask for respiratory support. By the time the patient arrived here she looked fatigued but she did not seem acutely ill. We were able to take her off the paramedics CPAP and place her on an OxyMask. Her exam was relatively benign. She seemed fatigued, she had diminished air entry bilaterally no leonides wheezing and no leonides increased work of breathing. She does not describe being particularly ill prior to the onset of the significant shortness of breath. The patient had a chest x-ray that was clear. Labs were done that That were fairly unremarkable. This included a undetectable D-dimer. The patient did not require any additional bronchodilator treatment in the emergency department. She was tachycardic which I attributed to the bronchodilators administered by paramedics. She was given IV fluids. Ultimately after several hours of observation she seems stable. She will be discharged with a course of outpatient prednisone and azithromycin. She says that she has run out of her inhaler. She will be prescribed an inhaler for budesonide formoterol. She should follow up with her PCP. She should return if worse. Lab Data 06/11/25 14:02 06/11/25 14:01 Labs: Lab Results 06/11/25 06/11/25 06/11/25 Range/Units 14:01 14:02 16:56 WBC 12.0 H (4.8-10.8) X10*3/uL RBC 5.18 (4.20-5.50) X10*6/uL Hgb 13.7 (12.0-16.0) g/dl Hct 41.7 (37.0-47.0) % MCV 80.5 (80.0-98.0) fL MCH 26.4 L (27.0-33.0) pg MCHC 32.9 (31.0-35.0) g/dl RDW 13.1 (11.0-16.0) % Plt Count 399 (160-400) X10*3/uL MPV 9.3 L (9.4-12.3) fL Immature Gran % (Auto) 0.3 (0.0-0.4) % Neut % (Auto) 77.6 H (45-73) % Lymph % (Auto) 12.2 L (20-40) % [place] % (Auto) 4.0 (2-11) % Eos % (Auto) 4.8 H (0-4) % Baso % (Auto) 1.1 (0-2) % Lymph # (Auto) 1.5 (1.2-4.9) X10*3/uL [place] # (Auto) 0.5 (0.1-1.2) X10*3/uL Eos # (Auto) 0.6 H (0.0-0.4) X10*3/uL Baso # (Auto) 0.1 (0.0-0.2) X10*3/uL Abs Immat Gran (auto) 0.04 H (0.00-0.03) X10*3/uL Absolute Neuts (auto) 9.3 H (2.0-8.3) x10*3/uL Absolute Nucleated RBC 0.000 (0.0-0.012) X10*3/uL Nucleated RBC % (auto) 0.0 (0.0-0.2) /100WBC D-Dimer High Sensitivty < 150 NG/ML Sodium 139 (135-145) mmol/L Potassium 3.8 (3.3-5.1) mmol/L Chloride 106 (96-108) mmol/L Carbon Dioxide 23 (22-29) mmol/L Anion Gap 14 (12-20) BUN 11 (9-16) mg/dL Creatinine 0.71 (0.5-1.4) mg/dL Estim Creat Clear Calc 153.3 Estimated GFR > 60 Random Glucose 104 (60-115) mg/dL Calcium 9.3 (8.4-10.2) mg/dL Total Bilirubin 0.3 (0.0-1.0) mg/dL Direct Bilirubin 0.1 (0.0-0.5) mg/dL AST 25 (5-31) U/L ALT 25 (0-31) U/L Alkaline Phosphatase 75 (39-117) U/L C-Reactive Protein 1.39 H (< or = 0.50) mg/dL Total Protein 7.9 (6.5-8.0) g/dL Albumin 4.6 (3.5-5.0) g/dL Beta HCG, Quant < 2 mIU/mL Influenza Type A (PCR) NEGATIVE (Negative) Influenza Type B (PCR) NEGATIVE (Negative) RSV RNA Qual (PCR) NEGATIVE (Negative) SARS-CoV-2 RNA (RT-PCR) NEGATIVE (Negative) Discharge Plan Discharge Clinical Impression: Acute asthma exacerbation Patient Disposition: Home, Self-Care Instructions: Asthma (ED), How to Use a Metered-Dose Inhaler (ED) Additional Instructions: For this asthma exacerbation you has been sent prescriptions for the following: Prednisone, take this once a day starting tomorrow (you received a dose in the emergency room today). Azithromycin, take this once a day starting tomorrow (you also received a dose in the emergency room today). Budesonide-formoterol. This is a combination medication of a bronchodilator and an inhaled steroid. This is both a maintenance medication and a rescue inhaler. On regular days you may simply take 1-2 puffs in the morning and 1-2 puffs in the evening. However when you feel that your asthma is acting up you can increase this to 2 puffs every 4 hours as needed. Please follow up soon with your regular doctor. Return to the emergency room if you feel significantly worse. Prescriptions: New azithromycin 250 mg tablet 250 mg PO DAILY 4 Days Qty: 4 0RF Rx Instructions: start on day 2 of therapy prednisone 20 mg tablet 20 mg PO DAILY Qty: 12 0RF Rx Instructions: Take 3 tablets by mouth daily for 2 days then take 2 tablets by mouth daily for 3 days. budesonide-formoterol 160-4.5 mcg/actuation HFA aerosol inhaler 2 puff inhalation BID Qty: 10.2 0RF No Action albuterol sulfate 90 mcg/actuation aerosol powdr breath activated 2 inh inhalation Q4-6H PRN (Reason: shortness of breath or wheezing) Qty: 1 0RF albuterol sulfate 90 mcg/actuation aerosol powdr breath activated 2 inh inhalation Q4-6H PRN (Reason: shortness of breath or wheezing) Qty: 1 0RF prednisone 20 mg tablet 20 mg PO DAILY 4 Days Qty: 4 0RF albuterol sulfate 90 mcg/actuation aerosol powdr breath activated 2 inh inhalation Q4-6H PRN (Reason: shortness of breath or wheezing) Qty: 1 0RF prednisone 20 mg tablet 40 mg PO DAILY 5 Days Qty: 10 0RF albuterol sulfate [ProAir HFA] 90 mcg/actuation HFA aerosol inhaler 2 puff inhalation Q4-6H PRN (Reason: shortness of breath or wheezing) Qty: 8.5 1RF prednisone 50 mg tablet 50 mg PO DAILY Qty: 4 0RF prednisone 20 mg tablet 40 mg PO DAILY 4 Days Qty: 8 0RF albuterol sulfate 90 mcg/actuation HFA aerosol inhaler 2 puff inhalation QID PRN (Reason: shortness of breath or wheezing) Qty: 6.7 0RF budesonide-formoterol 80-4.5 mcg/actuation HFA aerosol inhaler 1 inh inhalation BID Qty: 10.2 0RF Rx Instructions: rinse mouth after immediately after use prednisone 50 mg tablet 50 mg PO DAILY 5 Days Qty: 5 0RF albuterol sulfate 90 mcg/actuation aerosol powdr breath activated 2 inh inhalation Q4H PRN (Reason: shortness of breath) Qty: 1 0RF cephalexin 500 mg capsule 500 mg PO BID 10 Days Qty: 19 0RF amoxicillin-pot clavulanate 875-125 mg tablet 1 tab PO Q12H Qty: 20 0RF ibuprofen 600 mg tablet 600 mg PO Q6H PRN (Reason: pain) Qty: 20 0RF prednisone 20 mg tablet 40 mg PO DAILY Qty: 10 0RF prednisone 50 mg tablet 50 mg PO DAILY 5 Days Qty: 5 0RF albuterol sulfate 90 mcg/actuation aerosol powdr breath activated 2 inh inhalation Q4H PRN (Reason: shortness of breath) Qty: 1 0RF Referrals: [facility] [Provider Group] Interventions: ED Discharge Assessment Last Done: 06/11/25 18:22 Discharge Date/Time: 06/11/25 18:35 Print Language: Maltese
[2025-06-11 13:01] VITALS: BP 102/64; PULSE 150; O2SAT 97
[2025-06-11 13:05] VITALS: BP 134/101; PULSE 138; RESP 20; TEMP 36.6; O2SAT 96; BMI 37.3
--- OUTSIDE RECORDS SUMMARY | 2025-06-11 13:25 | XMS_ITS | Encounter Summary ---
Author Organization [employer] Address [address] [facility] [address] [place] [address] Care Team Providers Care Embroidery Patternmaker Name Role Phone Kayley Looney DO Primary Care Provider [phone] [employer] Primary Care Provider [phone] Reason for Visit * Reason Comments Med Refill Encounter Details Date Type Department Care Team (Late st Contact Info) Description 07/08/2023 Refill [facility] [address] [place] [address] Kayley Looney DO [address] [place] [address] Cough in adult; Moderate asthma with acute [...] Description 10/15/2025 9:00 AM EDT Office Visit [facility] [address] [place] [address] Bryant, Anali, OD [address] [place] [address] documented as of this encounter Visit Diagnoses Diagnosis Cough in adult Moderate asthma with acute exacerbation, unspecified whether persistent documented in this encounter Care Teams Embroidery Patternmaker Relationship Specialty Start Date End Date Kayley Looney DO [address] [place] [address] PCP - General Pediatrics 02/11/13 09/03/23 FillmoreValerie FNP [address] [place] [address] PCP - General Family Medicine 09/04/23 Barbie Slade Director Of ResearchEmergency Medical Tech 12/16/24 documented as of this encounter
--- OUTSIDE RECORDS SUMMARY | 2025-06-11 13:25 | XMS_ITS | Encounter Summary ---
Author Organization [employer] Address [address] [facility] [address] [place] [address] Care Team Providers Care Civil Engineering Project Designer Name Role Phone [facility] Primary Care Provider [phone] Reason for Visit * Reason Comments Med Refill Encounter Details Date Type Department Care Team ([facility] st Contact Info) Description 10/21/[address] [facility] [address] [place], [place] [phone] [facility] [address] [place] [address] Moderate asthma with acute exacerbation, unspecified whether [...] Description 10/15/2025 9:00 AM EDT Office Visit [facility] [address] [place] [address] Bryant, Anali, OD [address] [place] [address] documented as of this encounter Visit Diagnoses Diagnosis Moderate asthma with acute exacerbation, unspecified whether persistent Cough in adult documented in this encounter Additional Health Concerns Assessment Noted Time PHQ-9 Depression Total Score: 0 10/08/19 25 11:19 AM EDT documented as of this encounter Care Teams Civil Engineering Project Designer Relationship Specialty Start Date End Date Valerie Danielson FNP [address] [place] [address] PCP - General Family Medicine 09/04/23 Barbie Slade Microbiological AnalystSecondary School Teacher 12/16/24 documented as of this encounter
--- OUTSIDE RECORDS SUMMARY | 2025-06-11 13:25 | XMS_ITS | Encounter Summary ---
Author Organization [employer] Address [address] [facility] [address] [place] [address] Care Team Providers Care Qualitative Researcher Name Role Phone Jagjit [facility] Primary Care Provider [phone] Reason for Visit * Reason Onset Date Comments Returning Call 12/07/2024 Encounter Details Date Type Department Care Team ([facility] Contact Info) Description 12/07/2024 Telephone [facility] [address] [place], [place] [phone] [facility] [address] [place], [place] [phone] Returning Call Social History Tobacco Use Types [...] Description 10/15/2025 9:00 AM EDT Office Visit [facility] [address] [place] [address] Anali Hurtado, OD [address] [place] [address] documented as of this encounter Visit Diagnoses Not on filedocumented in this encounter Additional Health Concerns Assessment Noted Time PHQ-9 Depression Total Score: 0 10/08/19 11:19 AM EDT documented as of this encounter Care Teams Qualitative Researcher Relationship Specialty Start Date End Date Valerie Danielson FNP [address] [place] [address] PCP - General Family Medicine 09/04/23 Barbie Slade Computer AnimatorSupervisor Record Press 12/16/24 documented as of this encounter
--- OUTSIDE RECORDS SUMMARY | 2025-06-11 13:25 | XMS_ITS | Clinical Summary ---
Author Organization [employer] Address [address] [facility] 7t [place] [address] Care Team Providers Care Continuous Towel Roller Name Role Phone Valerie Danielson [facility] Primary Care Provider [phone] Allergies No known active allergies Medications fluticasone (Flovent) 110 MCG/ACT inhaler 2 inh via spacer 2 times per day every day 2 Active Sodium Fluoride 1.1 % gel [place] with a pea size amount every night. Floss then spit out excess. Do not rinse 1 Active chlorhexidine (Peridex) 0.12 % solution RINSE FOR 30 SECONDS WITH A HALF OUNCE (15ml) TWICE DAILY, SPIT OUT -- DO NOT SWALLOW., USE AFTER MEALS 2 Active hydrOXYzine pamoate (Vistaril) 25 MG capsule TAKE 1 CAPSULE BY MOUTH TWICE DAILY NEEDED 3 Active guanFACINE (Intuniv) 4 mg 24 hr tablet Take 4 mg by mouth in the morning. 3 Active Sodium Fluoride 1.1 % cream [place] with a pea size amount of toothpaste morning and bedtime. Floss between teeth. Do not rinse. Spit out excess. 56 g 10 3 Active loratadine (Claritin) 10 MG tablet 1 tablet by oral route daily prn allergy symptoms 90 tablet 3 Active Additional Information Patient not taking.Reported on 12/22/2024 Blood Pressure kitIndications:E levated blood pressure reading Use as directed to check blood pressure once daily 1 kit 4 Active FLUoxetine (PROzac) 20 MG capsule TAKE 1 CAPSULE BY MOUTH EVERY MORNING WITH 10 MG CAPSULE 4 Active melatonin 3 MG tablet TAKE 1 TO 2 TABLETS BY MOUTH 1 HOUR BEFORE BEDTIME 4 Active fluticasone (Flonase) 50 MCG/ACT nasal sprayIndications :Otitis media with effusion, left Administer 2 sprays into each nostril Once per day. Shake gently. Before first use, prime pump. After use, clean tip and replace cap. 16 g 2 4 Active triamcinolone (Kenalog) 0.1 % ointmentIndicati ons:Flexural eczema Mix with 1 lb jar of Cerave healing ointment and apply topically to body twice a day 80 g 2 4 Active albuterol (2.5 MG/3ML) 0.083% nebulizer solutionIndicati ons:Moderate asthma with acute exacerbation, unspecified whether persistent,Cough in adult INHALE 1 AMPULE USING A NEBULIZER EVERY 4 TO 6 HOURS NEEDED FOR COUGH, WHEEZING, OR SHORTNESS OF BREATH 90 mL 3 5 Active Neomycin-Polymyx in-HC 1 % solutionIndicati ons:Acute otitis externa of right ear, unspecified type Administer 4 drops into affected ear(s) 4 times daily. 10 mL 5 Active metFORMIN XR (Glucophage-XR) 500 MG 24 hr tabletIndication s:PCOS (polycystic ovarian syndrome) Take 1 tablet by oral route daily. If tolerating well OK to increase to twice daily 30 tablet 11 5 Active NIFEdipine XL (Procardia XL) 60 MG 24 hr tabletIndication s:Primary hypertension Take 1 tablet (60 mg) by mouth Once per day. Do not crush, chew, or split. 30 tablet 11 05/04/2025 12:14 PM EST 5 10/08/19 26 Active olmesartan (Benicar) 5 MG tabletIndication s:Primary hypertension Take 1 tablet (5 mg) by mouth Once per day. 30 tablet 11 5 01/13/20 26 Active levonorgestrel-e thinyl estradiol (Aviane, Alesse, Lessina) 0.1-20 MG-MCG tabletIndication s:PCOS (polycystic ovarian syndrome),Irregu lar menses 1 tab by oral route daily 28 tablet 12 5 Active fluconazole (Diflucan) 150 MG tabletIndication s:Vaginal yeast infection Take 1 tablet by oral route. Repeat in 72 hours. 2 tablet 5 Active cholecalciferol (Vitamin D-3) 25 MCG tabletIndication s:Vitamin D deficiency TAKE 1 TABLET BY MOUTH EVERY DAY IN THE MORNING 90 tablet 3 5 Active montelukast (Singulair) 10 MG tablet TAKE 1 TABLET BY MOUTH EVERY EVENING 90 tablet 3 06/01/2025 3:36 PM EST 5 Active albuterol (Ventolin HFA) 108 (90 Base) MCG/ACT inhalerIndicatio ns:Moderate asthma with acute exacerbation, unspecified whether persistent INHALE 2 PUFFS BY MOUTH EVERY 4 TO 6 HOURS NEEDED FOR COUGH, WHEEZING, OR SHORTNESS OF BREATH ADMINISTER WITH SPACER 18 g 3 06/01/2025 3:36 PM EST 5 Active Eye Itch Relief 0.035 % solution PLACE 1 DROP INTO THE AFFECTED EYE(S) TWICE DAILY (AT least 8 HOURS APART) NEEDED FOR ALLERGY SYMPTOMS 5 mL 5 05/04/2025 11:54 AM EST 5 Active Active Problems Problem Noted Date Diagnosed Date [...] Anxiety 02/05/2013 Overview (10/08/2023): therapy 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 [facility]; 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 attacks-->hydroxyzine PRN, fluoxetine, guainfaceine for ?ADHD Eczema 03/10/2012 Learning difficulty 03/10/2012 Body mass index, pediatric, greater than or equal to 95th percentile for age 0903/10/2012 Resolved Problems Problem Noted Date Diagnosed Date Resolved Date Depressive disorder 02/08/2016 10/08/19 24 Encounters Date Type Department Care Team Description 06/07/2025 10:45 AM EST Office Visit [facility] OPTOMETRY [address] [place] [address] Bryant, Anali, OD Myopia of both eyes (Primary Dx) 05/16/2025 Orders Only GENERIC EXTERNAL DATA DEPARTMENT Provider, Generic External Data 04/26/2025 Refill [facility] MED & PEDS [address] [place] [address] Kayley Looney DO 04/05/2025 Refill [facility] MEDICINE [address] [place] [address] Guadalupe, Valerie, [facility] Moderate asthma with acute exacerbation, unspecified whether persistent 03/29/2025 Orders Only GENERIC EXTERNAL DATA DEPARTMENT Provider, Generic External Data 03/23/2025 9:00 AM EDT Office Visit [facility] ORTHODONTICS [address] [place] [address] Beatriz Mckeon, DMD 03/16/2025 9:00 AM EDT Office Visit [facility] ORTHODONTICS [address] [place] [address] Beatriz Mckeon DMD from Last 3 Months Immunizations Immunization Administration [...] is your housing situation today? I have yvno sing 09/11/[address] you li [...] Description 10/15/2025 9:00 AM EDT Office Visit [facility] OPTOMETRY [address] [place] [address] Bryant, Anali, OD [address] [place] [address] Health Maintenance Due Date Last Done Comments [...] A/B AND RSV RNA QL NAAT Routine 05/16/2025 5:19 PM EST SARS COV2/INFLUENZA A/B AND RSV RNA QL NAAT Routine 03/29/2025 2:49 AM EDT NO CHARGE, UNSPECIFIED ORTHODONTIC PROCEDURE, BY REPORT Routine 03/23/2025 9:00 AM EDT CASE PRESENTATION, DETAILED AND EXTENSIVE TREATMENT PLANNING Routine 03/16/2025 9:00 AM EDT ORTHODONTIC RETENTION Routine 03/16/2025 9:00 AM EDT LIPID PANEL, STANDARD Routine 09/11/2023 [...] Influenza A/B, and RSV RNA, Ql NAAT (05/16/2025 5:19 PM EST) Only the most recent of2 resultswithin the time period is included. Influenza A PCR NEGATIVE Negative [facility] Influenza B PCR NEGATIVE Negative [facility] Resp Syncy Virus RNA Qual PCR NEGATIVE Negative [facility] SARS COV2 PCR NEGATIVE Negative [facility] Comment:All test results mus t [...] use by authorized laboratories.Testing performed on the [employer] GeneXpert utilizingreal-time RT-PCR.All SARS CoV2 and positive influenza A/B results arereported to [facility]. 05/16/2025 5:19 PM EST 05/16/2025 5:22 PM EST Generic External Data Provider LAB MICROBIOLOGY - GENERAL ORDERABLES Final Result Performing Organization Address [facility]/ZIP Co de Phone Number [facility] [address] [place] [phone] * (ABNORMAL) Lipid Panel, Standard (09/11/2023 3:53 PM EDT) Triglycerides 247(H) <150 mg/dL [facility] Comment:Desirable Triglyceri de: less than 90 mg/dLBorderline High Triglyceride: 90-129 mg/dLHigh Triglyceride: greater than 130 mg/dL Cholesterol 154 <200 mg/dL [facility] Comment:Desirable Cholestero l: less than 170 mg/dLBorderline High Cholesterol: 170-199 mg/dLHigh Cholesterol: greater than 200 mg/dL LDL Cholesterol Calculated 71 <100 mg/dL [facility] Comment:Desirable LDL: less than 110 mg/dLBorderline LDL: 110-129 mg/dLHigh LDL: greater than or equal to 130 mg/dL HDL Cholesterol 34(L) >40 mg/dL [facility] Comment:Desirable HDL: great er than 45 mg/dLBorderline HDL: 40-45 mg/dLLow HDL: less than 40 mg/dL Note: This HDL assay may give artificially low results in patients with liver disease. Blood Venous blood specimen / Unknown 09/11/2023 3:53 PM EDT 09/11/2023 5:18 PM EDT [facility] CHARTING CLERK LAB BLOOD ORDERABLES Final Re sult Performing Organization Address [facility]/ZIP Co de Phone Number [facility] [address] [place] [address] [phone] from Last 3 Months or Most Recently Relevant to Health Maintenance [place] AD[place] Care Teams Continuous Towel Roller Relationship Specialty Start Date End Date Valerie Danielson FNP [address] [place] [address] PCP - General Family Medicine 09/04/23 Barbie Slade Library Sales ConsultantHuman Resources Department Supervisor 12/16/24
--- OUTSIDE RECORDS SUMMARY | 2025-06-11 13:25 | XMS_ITS | Encounter Summary ---
Author Organization [employer] Address [address] [facility] 7t [place] [address] Care Team Providers Care Vegetable Preparer Name Role Phone Valerie Danielson GLASS INSTALLER TECHNICIAN Primary Care Provider [phone] Reason for Visit * Reason Comments Med Refill Encounter Details Date Type Department Care Team ([facility] st Contact Info) Description 06/18/2024 Refill [facility] MEDICINE [address] [place], [place] [phone] Alana Castillo MD [address] [place], [place] [phone] Moderate asthma with acute exacerbation, unspecified whether [...] Description 10/15/2025 9:00 AM EDT Office Visit [facility] OPTOMETRY [address] [place] [address] Bryant, Anali, OD [address] [place] [address] documented as of this encounter Visit Diagnoses Diagnosis Moderate asthma with acute exacerbation, unspecified whether persistent documented in this encounter Additional Health Concerns Assessment Noted Time PHQ-9 Depression Total Score: 0 02/14/20 24 2:22 PM EDT documented as of this encounter Care Teams Vegetable Preparer Relationship Specialty Start Date End Date Valerie Danielson FNP [address] [place] [address] PCP - General Family Medicine 09/04/23 Barbie Slade White WasherChief Guard 12/16/24 documented as of this encounter
--- OUTSIDE RECORDS SUMMARY | 2025-06-11 13:25 | XMS_ITS | Encounter Summary ---
Author Organization [employer] Address [address] [facility] 7t [place] [address] Care Team Providers Care Investigation Division Lieutenant Name Role Phone DilciaKayley alaniz Primary Care Provider [phone] [facility] Primary Care Provider [phone] Encounter Details Date Type Department Care Team (Late st Contact Info) Description 05/09/2022 Abstract [facility] ORTHODONTICS [address] [place] [address] Dental, Provider, DDS Social History Tobacco Use [...] Department Care Team (Late Contact Info) Description 10/15/2025 9:00 AM EDT Office Visit [facility] OPTOMETRY [address] [place], [place] [phone] Bryant, Anali, OD [address] [place] [address] documented as of this encounter Procedures Procedure [...] on filedocumented in this encounter Care Teams Investigation Division Lieutenant Relationship Specialty Start Date End Date Kayley Looney DO [address] [place] [address] PCP - General Pediatrics 02/11/13 09/03/23 [facility] [address] [place] [address] PCP - General Family Medicine 09/04/23 Barbie Slade Tree ClimberHaulpak Driver 12/16/24 documented as of this encounter
--- OUTSIDE RECORDS SUMMARY | 2025-06-11 13:25 | XMS_ITS | Encounter Summary ---
Author Organization [employer] Address 75 [facility] 7t [place] [address] Care Team Providers Care Classroom Coordinator Name Role Phone Valerie Danielson SHORT STORY WRITER Primary Care Provider [phone] Reason for Visit * Reason Comments Med Refill Encounter Details Date Type Department Care Team ([facility] st Contact Info) Description 09/27/2023 Refill [facility] MEDICINE [address] [place], [place] [phone] Kayley Looney DO [address] [place], [place] [phone] Cough in adult; Moderate asthma with acute [...] Description 10/15/2025 9:00 AM EDT Office Visit [facility] OPTOMETRY [address] [place] [address] Bryant, Anali, OD [address] [place] [address] documented as of this encounter Visit Diagnoses Diagnosis Cough in adult Moderate asthma with acute exacerbation, unspecified whether persistent documented in this encounter Additional Health Concerns Assessment Noted Time PHQ-9 Depression Total Score: 0 09/11/19 24 2:55 PM EDT documented as of this encounter Care Teams Classroom Coordinator Relationship Specialty Start Date End Date Valerie Danielson FNP [address] [place] [address] PCP - General Family Medicine 09/04/23 Barbie Slade Wellness Nurse RnRotary Furnace Operator 12/16/24 documented as of this encounter
--- OUTSIDE RECORDS SUMMARY | 2025-06-11 13:25 | XMS_ITS | Encounter Summary ---
Author Organization [employer] Address [address] [facility] 7t [place] [address] Care Team Providers Care Grinder Name Role Phone Kayley Looney Primary Care Provider [phone] [facility] Primary Care Provider [phone] Reason for Visit * Reason Comments Med Refill Encounter Details Date Type Department Care Team (Late st Contact Info) Description 05/20/2023 Refill [facility] MEDICINE [address] [place] [address] Adelia Jalloh MD [address] [place] [address] Cough in adult; Moderate asthma with acute [...] Description 10/15/2025 9:00 AM EDT Office Visit [facility] OPTOMETRY [address] [place] [address] BryantAnali marcum, OD [address] [place] [address] documented as of this encounter Visit Diagnoses Diagnosis Cough in adult Moderate asthma with acute exacerbation, unspecified whether persistent documented in this encounter Care Teams Grinder Relationship Specialty Start Date End Date Kayley Looney DO [address] [place] [address] PCP - General Pediatrics 02/11/13 09/03/23 NitroValerie FNP [address] [place] [address] PCP - General Family Medicine 09/04/23 Barbie Slade Packing Tractor Machine OperatorElectrical Cad Designer 12/16/24 documented as of this encounter
--- OUTSIDE RECORDS SUMMARY | 2025-06-11 13:25 | XMS_ITS | Encounter Summary ---
Author Organization [employer] Address [address] [facility] 7t [place] [address] Care Team Providers Care Trust Vault Custodian Name Role Phone Kayley Looney DO Primary Care Provider [phone] [facility] Primary Care Provider [phone] Reason for Visit * Reason Comments Med Refill Encounter Details Date Type Department Care Team (Late st Contact Info) Description 08/16/2023 Refill [facility] MEDICINE [address] [place] [address] Kayley Looney DO [address] [place] [address] Cough in adult; Moderate asthma with acute [...] Description 10/15/2025 9:00 AM EDT Office Visit [facility] OPTOMETRY [address] [place] [address] Bryant, Anali, OD [address] [place] [address] documented as of this encounter Visit Diagnoses Diagnosis Cough in adult Moderate asthma with acute exacerbation, unspecified whether persistent documented in this encounter Care Teams Trust Vault Custodian Relationship Specialty Start Date End Date Kayley Looney DO [address] [place] [address] PCP - General Pediatrics 02/11/13 09/03/23 [place] FNP [address] [place] [address] PCP - General Family Medicine 09/04/23 Barbie Slade Customs OfficerTrack Dresser 12/16/24 documented as of this encounter
--- OUTSIDE RECORDS SUMMARY | 2025-06-11 13:25 | XMS_ITS | Encounter Summary ---
Author Organization [employer] Address [address] [facility] 7t [place] [address] Care Team Providers Care Supply Coordinator Name Role Phone Kayley Looney DO Primary Care Provider [phone] [facility] Primary Care Provider [phone] Reason for Visit * Reason Onset Date Comments Med Refill 04/26/2023 Encounter Details Date Type Department Care Team ([facility] st Contact Info) Description 04/26/2023 Refill [facility] MEDICINE [address] [place] [address] Kayley Looney DO [address] [place], [place] [phone] Cough in adult; Moderate asthma with acute [...] Base) MCG/ACT inhaler to be sent to [facility] pharmacy documented in this encounter Plan of Treatment Upcoming Encounters Date Type Department Care Team (Late st Contact Info) Description 10/15/2025 9:00 AM EDT Office Visit [facility] OPTOMETRY [address] [place], [place] [phone] Anali Hurtado, FERCHO [address] [place] [address] documented as of this encounter Visit Diagnoses Diagnosis Cough in adult Moderate asthma with acute exacerbation, unspecified whether persistent documented in this encounter Care Teams Supply Coordinator Relationship Specialty Start Date End Date Kayley Looney DO [address] [place] [address] PCP - General Pediatrics 02/11/13 09/03/23 [place] FNP [address] [place] [address] PCP - General Family Medicine 09/04/23 Barbie Slade Coil FinisherGel Coat Sprayer 12/16/24 documented as of this encounter
--- OUTSIDE RECORDS SUMMARY | 2025-06-11 13:26 | XMS_ITS | Encounter Summary ---
Author Organization [employer] Address 75 [facility] 7t [place] [address] Care Team Providers Care Notch Grinder Name Role Phone DilciaKayley alaniz Primary Care Provider [phone] [facility] Primary Care Provider [phone] Encounter Details Date Type Department Care Team (Late Contact Info) Description 05/17/2022 Orders Only [facility] PEDIATRICS [address] [place] [address] Adelia Jalloh MD [address] [place], [place] [phone] Mild intermittent asthma, unspecified whether complicated (Primary [...] Description 10/15/2025 9:00 AM EDT Office Visit [facility] OPTOMETRY [address] [place] [address] Anali Hurtado, OD [address] [place] [address] documented as of this encounter Procedures Procedure [...] (Lucas) (08/10/2022 8:56 PM EST) IDNOW SERIAL# [id number] [facility] Influenza A Negative Negative [facility] Influenza B2 Negative Negative [facility] Influenza A B2 Note See Note [facility] Comment:The Lucas ID NOW In [...] PM EST 08/10/2022 9:04 PM EST us [facility] Exter nal Provider LAB MICROBIOLOGY - GENERAL ORDERABLES Final Result [facility] [address] [place] [phone] * COVID-19 ID NOW (LUCAS) (08/10/2022 8:56 PM EST) IDNOW SERIAL# [id number] [facility] COVID-19 TEST Negative Negative [facility] COVID-19 NOTE See Note [facility] Comment: Results are for the identification of SARS-CoV2 RNA. TheSARS-CoV2 RNA is generally detectable in respiratory samplesduring the acute phase of infection. Positive results areindicative of the presence of SARS-CoV-2 RNA; clinicalcorrelation with patient history and other diagnosticinformation is necessary to determine patient infectionstatus. Positive results do not rule out bacterial infectionor co- infection with other viruses.Testing facilities within the [facility] and [facility] are required to report all positive [...] PM EST 08/10/2022 9:04 PM EST us [facility] Exter nal Provider LAB MOLECULAR DIAGNOSTICS ORDERABLES Final Result [facility] [address] [place] [phone] * Magnesium (08/10/2022 8:56 PM EST) Magnesium 1.7 1.6 - 2.6 mg/dL [facility] 08/10/2022 8:56 PM EST 08/10/2022 9:04 PM EST us [facility] External Provider LAB BLO OD ORDERABLES Final Result [facility] [address] [place] [address] [phone] * (ABNORMAL) Comprehensive Metabolic Panel (08/10/2022 8:56 PM EST) Sodium 139 135 - 145 mmol/L [facility] Potassium 3.4 3.3 - 5.1 mmol/L [facility] Chloride 109(H) 96 - 108 mmol/L [facility] Carbon Dioxide 21(L) 22 - 29 mmol/L [facility] Anion Gap 12 12 - 20 [facility] Urea Nitrogen (BUN) 12 9 - 16 mg/dL [facility] Creatinine, Serum 0.77 0.5 - 1.4 mg/dL [facility] Creatinine Clr Calc Pharmacy TNP [facility] Comment:Cannot be calculated ; patient is less than 19 years old. Estimated Glomerular Filt Rate >60 [facility] Comment:NOTE: For -Am erican individuals, multiply the result by 1.210.Chronic Kidney Disease: Estimated GFR < 60 mL/min/1.51q8Hbyrsx Kidney Disease: Estimated GFR < 15 mL/min/1.73m2 Glucose 103 60 - 115 mg/dL [facility] Calcium 9.3 8.4 - 10.2 mg/dL [facility] Bilirubin, Total 0.4 0.0 - 1.0 mg/dL [facility] Aspartate Amino Transferase 17 5 - 31 U/L [facility] Alanine Aminotransferase 17 0 - 31 U/L [facility] Total Protein 7.4 6.5 - 8.0 g/dL [facility] Albumin Level 4.3 3.5 - 5.0 g/dL [facility] Alkaline Phosphatase 78 39 - 117 U/L [facility] 08/10/2022 8:56 PM EST 08/10/2022 9:04 PM EST us [facility] External Provider LAB BLO OD ORDERABLES Final Result [facility] [address] [place], [place] [phone] * (ABNORMAL) CBC auto differential (08/10/2022 8:56 PM EST) White Blood Count 11.1(H) 4.8 - 10.8 X10*3/uL [facility] Red Blood Count 4.99 4.20 - 5.50 X10*6/uL [facility] Hemoglobin 12.9 12.0 - 16.0 g/dl [facility] Hematocrit 38.9 37.0 - 47.0 % [facility] Mean Corpuscular Volume 78.0(L) 80.0 - 98.0 fL [facility] Mean Corpuscular Hemoglobin 25.9(L) 27.0 - 33.0 pg [facility] Mean Corpuscular HGB Conc 33.2 31.0 - 35.0 g/dl [facility] Red Cell Distribution Width 13.4 11.0 - 16.0 % [facility] Platelet Count 351 160 - 400 X10*3/uL [facility] Mean Platelet Volume 9.1(L) 9.4 - 12.3 fL [facility] Neutrophils Percent Auto 61.2 45 - 73 % [facility] Imm Gran Pct Auto 0.3 0.0 - 0.4 % [facility] Lymphocytes Percent Auto 24.3 20 - 40 % [facility] Monocytes Percent Auto 6.4 2 - 11 % [facility] Eosinophils Percent Auto 6.6(H) 0 - 4 % [facility] Basophils Percent Auto 1.2 0 - 2 % [facility] NRBC Pct Auto 0.0 0.0 - 0.2 /100WBC [facility] Neutrophils Absolute Auto 6.8 2.0 - 8.3 x10*3/uL [facility] Imm Gran Abs Auto 0.03 0.00 - 0.03 X10*3/uL [facility] Lymphocytes Absolute Auto 2.7 1.2 - 4.9 X10*3/uL [facility] Monocytes Absolute Auto 0.7 0.1 - 1.2 X10*3/uL [facility] Eosinophils Absolute Auto 0.7(H) 0.0 - 0.4 X10*3/uL [facility] Basophils Absolute Auto 0.1 0.0 - 0.2 X10*3/uL [facility] NRBC Abs Auto 0.000 0.0 - 0.012 X10*3/uL [facility] 08/10/2022 8:56 PM EST 08/10/2022 9:04 PM EST [facility] External Provider LAB BLO OD ORDERABLES Final Result Performing Organization Address City/State/[facility] Co de Phone Number [facility] [address] [place] [address] [phone] documented in this encounter Visit Diagnoses Diagnosis Mild intermittent asthma, unspecified whether complicated- Primary documented in this encounter Care Teams Notch Grinder Relationship Specialty Start Date End Date Kayley Looney DO [address] [place] [phone] PCP - General Pediatrics 02/11/13 09/03/23 [place] FNP [address] [place] [address] PCP - General Family Medicine 09/04/23 Barbie Slade Assistant Football CoachMilk Deliverer 12/16/24 documented as of this encounter
--- OUTSIDE RECORDS SUMMARY | 2025-06-11 13:26 | XMS_ITS | Encounter Summary ---
Author Organization [employer] Address [address] [place] [address] Care Team Providers Care Sales Special Agent Name Role Phone [facility] Primary Care Provider [phone] Reason for Visit * Reason Comments Med Refill Encounter Details Date Type Department Care Team ([facility] st Contact Info) Description 10/31/2024 Refill [facility] MEDICINE [address], [place] [phone] [facility] [address] [place], [place] [phone] Moderate asthma with acute exacerbation, unspecified whether [...] Description 10/15/2025 9:00 AM EDT Office Visit [facility] OPTOMETRY [address] [place] [address] Bryant, Anali, OD [address] [place] [address] documented as of this encounter Visit Diagnoses Diagnosis Moderate asthma with acute exacerbation, unspecified whether persistent documented in this encounter Additional Health Concerns Assessment Noted Time PHQ-9 Depression Total Score: 0 10/08/19 25 11:19 AM EDT documented as of this encounter Care Teams Sales Special Agent Relationship Specialty Start Date End Date Valerie Danielson FNP [address] [place] [address] PCP - General Family Medicine 09/04/23 Barbie Slade Animal KillerTandem Operator 12/16/24 documented as of this encounter
--- NOTE | 2025-06-11 13:51 | PC.NURSE ---
up to BR, unlabored. steady
[2025-06-11 14:06] LABS: MANUAL DIFF FLAG NO
[2025-06-11 14:07] LABS: Hematocrit 41.7 % (37.0-47.0); Hemoglobin 13.7 g/dl (12.0-16.0); Imm Gran Abs Auto 0.04 X10*3/uL (0.00-0.03); Imm Gran Pct Auto 0.3 % (0.0-0.4); Lymphocytes Absolute Auto 1.5 X10*3/uL (1.2-4.9); Mean Corpuscular HGB Conc 32.9 g/dl (31.0-35.0); Mean Corpuscular Hemoglobin 26.4 pg (27.0-33.0); Mean Corpuscular Volume 80.5 fL (80.0-98.0); NRBC Abs Auto 0.000 X10*3/uL (0.0-0.012); NRBC Pct Auto 0.0 /100WBC (0.0-0.2); Platelet Count 399 X10*3/uL (160-400); Red Blood Count 5.18 X10*6/uL (4.20-5.50); White Blood Count 12.0 X10*3/uL (4.8-10.8)
[2025-06-11 14:26] LABS: Anion Gap 14 (12-20); Blood Urea Nitrogen 11 mg/dL (9-16); Carbon Dioxide 23 mmol/L (22-29); Chloride 106 mmol/L (96-108); Potassium 3.8 mmol/L (3.3-5.1); Sodium 139 mmol/L (135-145)
[2025-06-11 14:27] LABS: Alanine Aminotransferase 25 U/L (0-31); Albumin Level 4.6 g/dL (3.5-5.0); Alkaline Phosphatase 75 U/L (39-117); Aspartate Amino Transferase 25 U/L (5-31); Calcium 9.3 mg/dL (8.4-10.2); Creatinine Clr Calc Pharmacy 153.3; Estimated Glomerular Filt Rate > 60; Total Protein 7.9 g/dL (6.5-8.0)
[2025-06-11 15:01] LABS: Resp Syncy Virus RNA Qual PCR NEGATIVE (Negative); SARS COV2 PCR INHOUSE NEGATIVE (Negative)
[2025-06-11 17:00] VITALS: BP 139/76; PULSE 120; RESP 18; TEMP 36.7; O2SAT 94
[2025-06-11 17:16] LABS: D Dimer High Sensitivity < 150 NG/ML
--- NOTE | 2025-06-11 17:37 | ECG_ITS ---
Test Reason : tachy Blood Pressure : */* mmHG Vent. Rate : 112 BPM Atrial Rate : 112 BPM P-R Int : 132 ms QRS Dur : 96 ms QT Int : 328 ms P-R-T Axes : 64 74 8 degrees QTcB Int : 447 ms Sinus tachycardia Otherwise normal ECG When compared with ECG of 11-Feb-2025 13:50, No significant change was found Referred By: Israel Escalante Electronically Signed By: LIZETTE ELIAS MD
[2025-06-11 18:22] VITALS: BP 140/73; PULSE 110; RESP 18; TEMP 36.8; O2SAT 98
== END 2025-06-11 18:35 | disposition home or self-care (01) ==
PROVIDERS: Emergency Provider Emergency Medicine
DX: J45.901 Unspecified asthma with (acute) exacerbation (principal); R06.02 Shortness of breath; R00.0 Tachycardia, unspecified; Z03.818 Encounter for observation for suspected exposure to other biological agents ruled out
CPT/HCPCS: 36415; 71045; 80048; 80076; 84702; 85025; 85379; 86140; 87637; 93005; 96360; 96361; 99284; 99285

== ENCOUNTER → 2025-06-11 13:30 | Outpatient (BNV) | payer MEDICAID, SELFPAY | PROVIDERS: Emergency Provider Emergency Medicine; Visit Provider Radiology Diagnostic Radiology | DX: R06.02 Shortness of breath (principal) | CPT/HCPCS: 71045 ==

== ENCOUNTER → 2025-06-11 17:37 | Outpatient (BNV) | payer MEDICAID, SELFPAY | PROVIDERS: Emergency Provider Emergency Medicine; Visit Provider Internal Medicine Cardiovascular Disease | DX: R00.0 Tachycardia, unspecified (principal) | CPT/HCPCS: 93010 ==